=== PATIENT | male | born 1995 | race Caucasian/White ===

== ENCOUNTER 2017-02-02 14:05 | Inpatient (IN) | payer OTHER ==
[2017-02-02 17:55] VITALS: BMI 19.1
--- NOTE | 2017-02-02 19:01 | HP ---
Admission [facility] Chief Complaint: REHAB SERVICES Allergies/Adverse Reactions: Allergies Allergy/AdvReac Type Severity Reaction Status Date / Time fish derived Allergy Severe Rash Verified 02/02/17 18:27 shellfish derived Allergy Severe Rash Verified 02/02/17 18:27 No Known Drug Allergies Allergy Verified 02/02/17 18:27 CRAB Allergy Severe Rash Uncoded 02/02/17 18:27 SEAFOOD Allergy Severe Rash Uncoded 02/02/17 18:27 SHRIMPS Allergy Severe Rash Uncoded 02/02/17 18:27 History of Present Illness: 22 Y.O. MAN WITH A HISTORY OF HEROIN AND ALCOHOL DEPENDENCE IS HERE SEEKING REHAB SERVICES. HE COMPLETED DETOX AT [facility] ON 01/30/17. HE DOES NOT HAVE A SIGNIFICANT PERIOD OF SOBRIETY. Exam Limitations: No Limitations - Ebola screening Have you traveled outside of the country in the last 21 days: No Have you had contact with anyone from an Ebola affected area: No Have you been sick,other than usual withdrawal symptoms: No Do you have a fever: No - Review of Systems Constitutional: No Symptoms Reported EENT: reports: No Symptoms Reported Respiratory: reports: No Symptoms reported Cardiac: reports: No Symptoms Reported GI: reports: No Symptoms Reported : reports: No Symptoms Reported Musculoskeletal: reports: No Symptoms Reported Integumentary: reports: No Symptoms Reported Neuro: reports: No Symptoms reported Endocrine: reports: No Symptoms Reported Hematology: reports: No Symptoms Reported Psychiatric: reports: Orientated x3, other (BIPOLAR AND ADHD) Patient History - Patient Medical History Hx Anemia: No Hx Asthma: Yes Hx Chronic Obstructive Pulmonary Disease (COPD): No Hx Cardiac Disorders: No Hx Hypertension: No Hx Hypercholesterolemia: No Hx Pacemaker: No HX Cerebrovascular Accident: No Hx Seizures: No Hx Dementia: No Hx Diabetes: No Hx Gastrointestinal Disorders: No Hx Liver Disease: No Hx Genitourinary Disorders: No Hx Sexually Transmitted Disorders: No Hx Renal Disease (ESRD): No Hx Thyroid Disease: No Hx Human Immunodeficiency Virus (HIV): No Hx Hepatitis C: No Hx Depression: Yes Hx Suicide Attempt: No Hx Bipolar Disorder: Yes (AND ADHD ) Hx Schizophrenia: No - Patient Surgical History Past Surgical History: Yes Hx Neurologic Surgery: No Hx Cataract Extraction: No Hx Cardiac Surgery: No Hx Lung Surgery: No Hx Breast Surgery: No Hx Breast Biopsy: No Hx Abdominal Surgery: No Hx Appendectomy: No Hx Cholecystectomy: No Hx Genitourinary Surgery: No Hx Section: No Hx Orthopedic Surgery: Yes (RT [facility]KLE 2011) Anesthesia Reaction: No - PPD History Previous Implant?: Yes Documented Results: Negative w/o proof Date: 07/13/14 PPD to be Administered?: Yes - Reproductive History Patient is a Female of Child Bearing Age (11 -55 yrs old): No - Smoking Cessation Smoking history: Current every day smoker Have you smoked in the past 12 months: Yes Aproximately how many cigarettes per day: 25 Hx Chewing Tobacco Use: No Initiated information on smoking cessation: Yes 'Breaking Loose' booklet given: 02/02/17 - Substance & Tx. History Hx Alcohol Use: Yes Hx Substance Use: Yes Substance Use Type: Alcohol, Heroin, Marijuana Hx Substance Use Treatment: Yes (DETOX AT [facility] ON 01/30/2017; NO REHAB PREVIOUSLY) - Substances Abused Alcohol Frequency: 1-2 times per week Amount used: 2 CANS OF BEER Age of first use: 16 Date of Last Use: 02/01/17 Heroin Route: Inhalation Frequency: 3-6 times per week Amount used: 2 Age of first use: 18 Date of Last Use: 02/01/17 Marijuana/Hashish Route: Smoking Frequency: Daily Amount used: 25 Age of first use: 6 Date of Last Use: 02/01/17 Family Disease History - Family Disease History Family History: Denies Admission Physical Exam [facility] - Vital Signs Vital Signs: Vital Signs - 24 hr 02/02/17 17:51 Temperature 96.2 F L Pulse Rate 120 H Respiratory 20 Rate Blood Pressure 130/75 - Physical General Appearance: Yes: Anxious HEENTM: Yes: Hearing grossly Normal, Normal ENT Inspection, Normocephalic Respiratory: Yes: Chest Non-Tender, Lungs Clear, Normal Breath Sounds, No Respiratory Distress, No Accessory Muscle Use Neck: Yes: No masses,lesions,Nodules, Trachea in good position Breast: Yes: Breast Exam Deferred Cardiology: Yes: Regular Rhythm, Tachycardia Abdominal: Yes: Normal Bowel Sounds, Non Tender Genitourinary: Yes: Other (NO COMPLAITNS REPORTED) Back: Yes: Normal Inspection Musculoskeletal: Yes: Gait Steady Extremities: Yes: Normal Inspection, Normal Range of Motion, Non-Tender Neurological: Yes: psychologist personnel II-XII NML intact, Fully Oriented, Motor Strength 5/5, Normal Mood/Affect, Normal Response Integumentary: Yes: Normal Color, Dry, Warm Lymphatic: Yes: Within Normal Limits - Diagnostic (1) Alcohol dependence Current Visit: Yes Status: Chronic (2) Cannabis dependence Current Visit: Yes Status: Chronic (3) Opioid dependence with withdrawal Current Visit: Yes Status: Chronic Cleared for Admission [facility] - Detox or Rehab [facility] Level of Care: Observation Bed Claeared for Rehab Admission: Yes [facility] Breath Alcohol Content Breath Alcohol Content: 0.063 Urine Drug Screen - Results Drug Screen Negative: No Urine Drug Screen Results: THC-Marijuana, OPI-Opiates, BZO-Benzodiazepines, MTD- Methadone
[2017-02-02] MEDS ORDERED: P-EPHED 60MG/TRIPROLIDI 2.5MG TABLET PO PRN (19:08)
[2017-02-02] MEDS ORDERED: diphenhydrAMINE HCL 50 MG CAPSULE PO PRN (19:08)
[2017-02-02] MEDS ORDERED: ACETAMINOPHEN 325 MG TABLET (FP) PO PRN (19:08)
[2017-02-02] MEDS ORDERED: MAGNESIUM CITRATE 300 ML BOTTLE PO PRN (19:08)
[2017-02-02] MEDS ORDERED: MENTHOL/PHENOL 1 EACH UD MM PRN (19:08)
[2017-02-02] MEDS ORDERED: hydrOXYzine PAMOATE 50 MG CAPSULE (FP) PO PRN (19:08)
[2017-02-02] MEDS ORDERED: LOPERAMIDE HCL 2 MG CAPSULE PO PRN (19:08)
[2017-02-02] MEDS ORDERED: NICOTINE POLACRILEX 4 MG GUM BUC PRN (19:08)
[2017-02-02] MEDS ORDERED: guaiFENesin/D-METHORPHAN HB 10 ML UNIT-DOSE CUPS PO PRN (19:08)
[2017-02-02] MEDS ORDERED: MAG HYDROX/AL HYDROX/SIMETH 30 ML UNIT-DOSE CUP PO PRN (19:08)
[2017-02-02] MEDS ORDERED: MAGNESIUM HYDROX 2400MG/30ML ORAL SUSPENSION 30 ML CUP PO PRN (19:08)
[2017-02-02] MEDS ORDERED: IBUPROFEN 400 MG TABLET (FP) PO PRN (19:08)
[2017-02-02] MEDS: THIAMINE HCL 100 MG TABLET (FP) PO SCH (21:25)
[2017-02-02] MEDS ORDERED: TUBERCULIN PPD 5 TU/0.1ML VIAL ID ONE (22:23)
[2017-02-02 22:45] LABS: URINE APPEARANCE CLEAR; URINE BILIRUBIN NEGATIVE (NEGATIVE); URINE BLOOD NEGATIVE (NEGATIVE); URINE COLOR YELLOW; URINE GLUCOSE (UA) NEGATIVE (NEGATIVE); URINE KETONE NEGATIVE (NEGATIVE); URINE LEUK ESTERASE NEGATIVE (NEGATIVE); URINE NITRITE NEGATIVE (NEGATIVE); URINE PROTEIN NEGATIVE (NEGATIVE); URINE UROBILINOGEN NEGATIVE mg/dL (0.2-1.0)
--- NOTE | 2017-02-03 06:39 | HP ---
Psychiatrist Admission - Data Date of interview: 02/03/17 Admission source: [facility] detox completed on 01/30/17 Identifying data: This is the first [facility] admission for this 22 years old single male, unemployed on SSI, homeless Medical History: Significant for history of surgery on left ankle in 2010. Somes 25 cigarettes daily Psychiatric History: Reports being diagnosed with ADHD as a child and treated with medication including Concerta. Later on he was diagnosed with Bipolar Disorder. Reports 4 previous psychiatric admissions to [facility] x3 & recently in 2016 @ [facility]. Reports receiving OPD care @ [facility] and he is prescribed Seroquel 400 mg po HS and Depakote 250 mg po BID. Just saw a psychiatrist at [facility] where he comleted inpt detox on 01/31/16. Claims that he was continued on his medications. At present reports doing well but sleeps poorly Physical/Sexual Abuse/Trauma History: Denies history of emotional, physical or sexual abuse swell as DV relationship. No service Additional Comment: Reportshistory of 8 previous midemeanor arrests(Trespassing , [place] walking)Denies being on probation at [facility] Vital Signs: Vital Signs - 24 hr 02/02/17 17:51 Temperature 96.2 F L Pulse Rate 120 H Respiratory 20 Rate Blood Pressure 130/75 Allergies/Adverse Reactions: Allergies Allergy/AdvReac Type Severity Reaction Status Date / Time fish derived Allergy Severe Rash Verified 02/02/17 18:27 shellfish derived Allergy Severe Rash Verified 02/02/17 18:27 No Known Drug Allergies Allergy Verified 02/02/17 18:27 CRAB Allergy Severe Rash Uncoded 02/02/17 18:27 SEAFOOD Allergy Severe Rash Uncoded 02/02/17 18:27 SHRIMPS Allergy Severe Rash Uncoded 02/02/17 18:27 Date of last physical exam: 02/02/17 Concur with the findings of this exam: Yes - Substance Abuse/Tx History Hx Alcohol Use: Yes Hx Substance Use: Yes Substance Use Type: Alcohol (Started drinking alcohol at age 16, consumes 2 cans 1-2 times weekly. Last drink on 02/01/17), Heroin (Started using heroin at age 18, consumes 2 bags 3-6 times weekly. Last used on 02/01/17), Marijuana ( Started smoking marijuana at age 6, consumes 25 daily. Lasr smoked on 02/01/17) Hx Substance Use Treatment: Yes (detox @ [facility], [facility] [place], [facility]: [facility] - Admission Criteria Previous failed treatment: Yes Poor recovery environment: Yes Comorbidities: Yes Lacks judgement: Yes Mental Status Exam - Mental Status Exam Alert and Oriented to: Time, Place, Person Cognitive Function: Fair Patient Appearance: Well Groomed Mood: Hopeful, Euthymic Affect: Appropriate Patient Behavior: Cooperative Speech Pattern: Clear Voice Loudness: Normal Thought Process: Intact, Goal Oriented Thought Disorder: Not Present Hallucinations: Denies Suicidal Ideation: Denies Homicidal Ideation: Denies Insight/Judgement: Fair Sleep: Poorly Appetite: Fair Muscle strength/Tone: Normal Gait/Station: Normal Psychiatric Findings - Problem List ([place] 1, 2,3) (1) Alcohol dependence Current Visit: Yes Status: Chronic (2) Opioid dependence Current Visit: Yes Status: Acute (3) Cannabis dependence Current Visit: Yes Status: Chronic (4) Nicotine dependence Current Visit: Yes Status: Acute (5) ADHD (attention deficit hyperactivity disorder) Current Visit: Yes Status: Acute (6) Bipolar disorder Current Visit: Yes Status: Acute - Initial Treatment Plan Initial Treatment Plan: 1) Continue Seroquel 400 mg po HS and Depakote 250 mg po BID. 2) Monitor progress
[2017-02-03] MEDS: PRENATAL VITAMINS W/ FOLIC ACID TABLET (FP) PO SCH (10:19)
[2017-02-03] MEDS: NICOTINE 21 MG/24 HOURS TOPICAL PATCH TD SCH (10:19)
[2017-02-03 12:36] LABS: MCH 28.8 pg (25.7-33.7); MCHC 33.2 g/dl (32.0-35.9); MEAN CELL VOLUME 86.8 fl (80-96); PLATELET COUNT 245 K/MM3 (134-434); RDW 14.8 % (11.9-15.9); WHITE BLOOD COUNT 11.3 K/mm3 (4.0-10.0)
[2017-02-03] MEDS: DIVALPROEX SODIUM 250 MG TABLET E.C. (FP) PO SCH ×2 (12:53→21:05)
[2017-02-03 13:01] LABS: ALBUMIN 3.8 g/dl (3.4-5.0); ALK PHOS 87 U/L (45-117); ANION GAP 10 (8-16); BILIRUBIN,TOTAL 0.5 mg/dL (0.2-1.0); CALCIUM 9.2 mg/dL (8.5-10.1); CO2 30 mmol/L (21-32); CREATININE 0.7 mg/dL (0.7-1.3); GLUCOSE,RANDOM 92 mg/dL (74-106); SGOT/AST 24 U/L (15-37); SGPT/ALT 48 U/L (12-78); TOT PROT 6.9 g/dl (6.4-8.2)
[2017-02-03 14:14] LABS: HIV 1 & 2 AB NEGATIVE; HIV 1 AGp24 NEGATIVE
[2017-02-03] MEDS: THIAMINE HCL 100 MG TABLET (FP) PO SCH (21:05)
[2017-02-03] MEDS: QUEtiapine FUMARATE 400 MG TABLET PO SCH (21:05)
[2017-02-04] MEDS: NICOTINE 21 MG/24 HOURS TOPICAL PATCH TD SCH (10:31)
[2017-02-04] MEDS: DIVALPROEX SODIUM 250 MG TABLET E.C. (FP) PO SCH ×2 (10:31→21:11)
[2017-02-04] MEDS: PRENATAL VITAMINS W/ FOLIC ACID TABLET (FP) PO SCH (10:31)
--- NOTE | 2017-02-04 12:28 | PN ---
S Progress Note Note: pain in right ankle,s/p surgery 7 years ago,scar right ankle,no erythema, ambulation with mild pain no deformity treatment x ray of right ankle motrin 400 mgs po q6 hrs prn forpain ambulation with cane support cbc wbc 11,300 probably due to dehydration encourage oral fluid repeat cbc in am
--- NOTE | 2017-02-04 14:51 | EKG ---
Test Reason : Blood Pressure : / mmHG Vent. Rate : 101 BPM Atrial Rate : 101 BPM P-R Int : 152 ms QRS Dur : 072 ms QT Int : 318 ms P-R-T Axes : 007 091 044 degrees QTc Int : 412 ms SINUS TACHYCARDIA RIGHTWARD AXIS BORDERLINE ECG NO PREVIOUS ECGS AVAILABLE Confirmed by RENE JO MD ([id number]) on 02/04/2017 2:51:05 PM Referred By: Confirmed By:RENE JO MD
[2017-02-04] MEDS: QUEtiapine FUMARATE 400 MG TABLET PO SCH (21:11)
[2017-02-04] MEDS: THIAMINE HCL 100 MG TABLET (FP) PO SCH (21:11)
[2017-02-05 07:03] VITALS: BP 126/84; PULSE 84; TEMP 97.7
--- NOTE | 2017-02-05 11:29 | PN ---
Psychiatric Progress Note Vital Signs: Vital Signs Period Temp Pulse Resp BP Sys/[place] Pulse Ox Last 24 Hr 97.7 F 84 18-18 126/84 Date of Session: 02/05/17 Chief Complaint:: AMA Discharge Note HPI: Patient addressing Alcohol, Opoid and Cannabis Dependence comorbid with Nicotine Dependence, ADHD and Bipolar Disorder Current Medications: Active Medications Generic Name Dose Route Start Last Admin Trade Name Freq PRN Reason Stop Dose Admin Acetaminophen 650 mg 02/02/17 19:08 Tylenol - PO Q4H PRN PAIN Al Hydroxide/Mg Hydroxide 30 ml 02/02/17 19:08 Mylanta Oral Suspension - PO Q6H PRN DYSPEPSIA Diphenhydramine HCl 50 mg 02/02/17 19:08 02/02/17 21:24 Benadryl - PO 50 mg HSMR1 PRN Administration INSOMNIA Divalproex Sodium 250 mg 02/03/17 11:15 02/04/17 21:11 Depakote - PO 250 mg BID ARGELIA Administration Eucalyptus/Menthol/Phenol/Sorbitol 1 each 02/02/17 19:08 Cepastat Lozenge - MM Q4H PRN SORE THROAT Guaifenesin 10 ml 02/02/17 19:08 Robitussin Dm - PO Q6H PRN COUGH Hydroxyzine Pamoate 50 mg 02/02/17 19:08 Vistaril - PO Q4H PRN AGITATION Ibuprofen 400 mg 02/02/17 19:08 Motrin - PO Q6H PRN SEVERE PAIN Loperamide HCl 4 mg 02/02/17 19:08 Imodium - PO Q6H PRN DIARRHEA Magnesium Citrate 300 ml 02/02/17 19:08 Citroma - PO Q48H PRN CONSTIPATION Magnesium Hydroxide 30 ml 02/02/17 19:08 Milk Of Magnesia - PO DAILY PRN CONSTIPATION Nicotine 21 mg 02/03/17 10:00 02/04/17 10:31 Nicoderm Patch - TD 21 mg DAILY ARGELIA Administration Nicotine Polacrilex 4 mg 02/02/17 19:08 Nicorette Gum - BUC Q2H PRN NICOTINE REPLACEMENT RX Multivit/Folic Acid/Iron 1 tab 02/03/17 10:00 02/04/17 10:31 Vitamins ([facility]) - PO 1 tab DAILY ARGELIA Administration Pseudoephedrine/Triprolidine 1 combo 02/02/17 19:08 Actifed - PO TID PRN NASAL CONGESTION Quetiapine Fumarate 400 mg 02/03/17 22:00 02/04/17 21:11 Seroquel - PO 400 mg HS ARGELIA Administration Thiamine HCl 100 mg 02/02/17 22:00 02/04/17 21:11 Vitamin B1 - PO 100 mg HS ARGELIA Administration Current Side Effect: No Lab tests ordered: Yes Lab tests reviewed: Yes Provider note:: Patient has not completed this program. He wants to leave against medical advice because he misses his girlfriend and wants to be with her.He told financial underwriter:"I promised my mother that I'm not going to use." He is determined to leave despite encouragement to stay and complete this program. Scripts for his psychotropic medications are electronically transmitted to [facility] at [address] [place] [address]. He is stable for discharge against medical advice Total face to face time:: 25 Mental Status Exam - Mental Status Exam Alert and Oriented to: Time, Place, Person Patient Appearance: Well Groomed Mood: Hopeful, Euthymic Affect: Appropriate Patient Behavior: Cooperative Speech Pattern: Clear Voice Loudness: Normal Thought Process: Intact, Goal Oriented Thought Disorder: Not Present Hallucinations: Denies Suicidal Ideation: Denies Homicidal Ideation: Denies Insight/Judgement: Fair Sleep: Fair Appetite: Good Muscle strength/Tone: Normal Gait/Station: Normal Psychiatric Treatment Plan - Problem List (1) Alcohol dependence Current Visit: Yes (2) Opioid dependence Current Visit: Yes (3) Cannabis dependence Current Visit: Yes (4) Nicotine dependence Current Visit: Yes (5) ADHD (attention deficit hyperactivity disorder) Current Visit: Yes (6) Bipolar disorder Current Visit: Yes Initial treatment plan: Patient is leaving [employer]
== END 2017-02-05 12:00 | disposition left against medical advice (07) | DRG 770 ==
LOC: YASAS 14:05 → Y3W 18:29
PROVIDERS: ADMIT Psychiatry & Neurology Psychiatry; ATTEND Psychiatry & Neurology Psychiatry
PROC: HZ42ZZZ Group Counseling for Substance Abuse Treatment, Cognitive-Behavioral (ICD-10-PCS; principal; 2017-02-02)
DX: F11.20 Opioid dependence, uncomplicated (principal); F10.20 Alcohol dependence, uncomplicated; F12.20 Cannabis dependence, uncomplicated; F17.210 Nicotine dependence, cigarettes, uncomplicated; F90.9 Attention-deficit hyperactivity disorder, unspecified type; F31.9 Bipolar disorder, unspecified; M25.571 Pain in right ankle and joints of right foot; J45.909 Unspecified asthma, uncomplicated; R00.0 Tachycardia, unspecified; Z91.013 Allergy to seafood
CPT/HCPCS: 36415; 80053; 81003; 85027; 86593; 86803; 87389; 93005; 93010

== ENCOUNTER 2017-09-29 17:01 | Inpatient (IN) | payer OTHER ==
[2017-09-29 20:53] VITALS: BMI 19.5
[2017-09-29] MEDS ORDERED: MELATONIN 5 MG TABLETS PO PRN (22:00)
--- NOTE | 2017-09-29 22:07 | HP ---
COWS - Scale Resting Pulse: 1= PA 81-100 Sweatin=Flushed/Facial Moisture Restless Observation: 1= Difficult to Sit Still Pupil Size: 0= Normal to Room Light Bone or Joint Aches: 1= Mild Discomfort Runny Nose/ Eye Tearin= Runny Nose/Eyes GI Upset > 30mins: 1= Stomach Cramp Tremor Observation: 1= Tremor [place], Not Seen Yawning Observation: 0= None Anxiety or Irritability: 2=Irritable/Anxious Goose Flesh Skin: 0=Smooth Skin COWS Score: 11 CIWA Score - CIWA Score Nausea/Vomitin Muscle Tremors: 1-None Visible, but [place] Anxiety: 4-Mod. Anxious/Guarded Agitation: 3 Paroxysmal Sweats: 3 Orientation: 1-Uncertain about Date Tacttile Disturbances: 0-None Auditory Disturbances: 0-None Visual Disturbances: 0-None Headache: 0-None Present CIWA-Ar Total Score: 15 Admission ROS S - HPI Chief Complaint: SEEKING DETOX DUE TO FEELING " DOPE SICK" Allergies/Adverse Reactions: Allergies Allergy/AdvReac Type Severity Reaction Status Date / Time fish derived Allergy Severe Rash Verified 02/02/17 18:27 shellfish derived Allergy Severe Rash Verified 02/02/17 18:27 No Known Drug Allergies Allergy Verified 02/02/17 18:27 CRAB Allergy Severe Rash Uncoded 02/02/17 18:27 SEAFOOD Allergy Severe Rash Uncoded 02/02/17 18:27 SHRIMPS Allergy Severe Rash Uncoded 02/02/17 18:27 History of Present Illness: 22 Y.O. MALE WITH POLYSUBSTANCE ABUSE HERE FOR DETOX FOR HEROIN. CLIENT DENIES ALCOHOL USE. STATES IS "HAS BEEN YEARS". HE IS KNOWN TO THIS PROGRAM. LAST VISIT EARLIER THIS YEAR WHERE HE SIGNED OUT AMA. D/W CLIENT ABOUT COMPLIANCE AND ADHERENCE TO SUCEED IN ABSTINENCE. CLIENT VERBALIZED UNDERSTANDING AND STATES HE IS READY FOR TXMENT. SELF REFERRED. DENIES NAY SIGNIFICANT PERIOD OF CLEAN TIME. Exam Limitations: No Limitations - Ebola screening Have you traveled outside of the country in the last 21 days: No Have you had contact with anyone from an Ebola affected area: No Have you been sick,other than usual withdrawal symptoms: No Do you have a fever: No - Review of Systems Constitutional: Loss of Appetite, Night Sweats, Changes in sleep, Unintentional Wgt. Loss EENT: reports: Nose Congestion (RUNNY), Dental Problems (CARIES) Respiratory: reports: No Symptoms reported Cardiac: reports: No Symptoms Reported GI: reports: Poor Appetite, Poor Fluid Intake, Abdominal cramping : reports: No Symptoms Reported Musculoskeletal: reports: No Symptoms Reported Integumentary: reports: Other (RESOLVING BRUISE TO R SIDE OF FACE DUE TO PHYSICAL ATERCATION 1 WEEK AGO REPORTS F/U W/ ER VISIT) Neuro: reports: No Symptoms reported Endocrine: reports: No Symptoms Reported Hematology: reports: No Symptoms Reported Psychiatric: reports: Anxious, Depressed Other Systems: Reviewed and Negative Patient History - Patient Medical History Hx Anemia: No Hx Asthma: No Hx Chronic Obstructive Pulmonary Disease (COPD): No Hx Cancer: No Hx Cardiac Disorders: No Hx Congestive Heart Failure: No Hx Hypertension: No Hx Hypercholesterolemia: No Hx Pacemaker: No HX Cerebrovascular Accident: No Hx Seizures: No Hx Dementia: No Hx Diabetes: No Hx Gastrointestinal Disorders: No Hx Liver Disease: No Hx Genitourinary Disorders: No Hx Sexually Transmitted Disorders: No Hx Renal Disease (ESRD): No Hx Thyroid Disease: No Hx Human Immunodeficiency Virus (HIV): No Hx Hepatitis C: No Hx Depression: No Hx Suicide Attempt: No Hx Bipolar Disorder: Yes (AND ADHD ) Hx Schizophrenia: No Other Medical History: FEELS DEPRESED DENIES SI/HI - Patient Surgical History Past Surgical History: Yes Hx Neurologic Surgery: No Hx Cataract Extraction: No Hx Cardiac Surgery: No Hx Lung Surgery: No Hx Breast Surgery: No Hx Breast Biopsy: No Hx Abdominal Surgery: No Hx Appendectomy: No Hx Cholecystectomy: No Hx Genitourinary Surgery: No Hx Section: No Hx Orthopedic Surgery: Yes (RT [facility] 2011) Anesthesia Reaction: No - PPD History Previous Implant?: Yes Documented Results: Negative w/proof Implanted On Prior [facility] Admission?: Yes Date: 02/04/17 Results: 0MM PPD to be Administered?: No - Smoking Cessation Smoking history: Current every day smoker Have you smoked in the past 12 months: Yes Aproximately how many cigarettes per day: 20 Cigars Per Day: 0 Hx Chewing Tobacco Use: No Initiated information on smoking cessation: Yes 'Breaking Loose' booklet given: 09/29/17 - Substance & Tx. History Hx Alcohol Use: No Hx Substance Use: Yes Substance Use Type: Cocaine, Heroin, Marijuana, Tranquilizers (PCP) Hx Substance Use Treatment: Yes ([facility]) - Substances Abused HEROIN Route: Inhalation Frequency: Daily Amount used: 4 BUNDLES Age of first use: 18 Date of Last Use: 09/29/17 COCAINE Route: Inhalation Frequency: Daily Amount used: 4 BUNDLES Age of first use: 18 Date of Last Use: 09/29/17 THC Route: Smoking Frequency: Daily Amount used: 10 BAGS Age of first use: 6 Date of Last Use: 09/29/17 PCP Route: Smoking Frequency: 1-3 times last 30 days Amount used: 1 JOINT Age of first use: 20 Date of Last Use: 09/29/17 Family Disease History - Family Disease History Family History: Denies Admission Physical Exam [facility] - Vital Signs Vital Signs: Vital Signs - 24 hr 09/29/17 20:51 Temperature 97.9 F Pulse Rate 85 Respiratory 19 Rate Blood Pressure 144/74 - Physical General Appearance: Yes: Mild Distress, Thin, Irritable, Anxious HEENTM: Yes: EOMI, Normocephalic, Normal Voice, JOSE, Pharynx Normal, Other ( DIALTED PUPILS) Respiratory: Yes: Chest Non-Tender, Lungs Clear, Normal Breath Sounds, No Respiratory Distress, No Accessory Muscle Use Neck: Yes: No masses,lesions,Nodules, Trachea in good position Breast: Yes: Breast Exam Deferred Cardiology: Yes: Regular Rhythm, Regular Rate, S1, S2 Abdominal: Yes: Normal Bowel Sounds, Non Tender, Flat, Soft Genitourinary: Yes: Other (NO COMPLAINTS) Back: Yes: Normal Inspection Musculoskeletal: Yes: full range of Motion, Gait Steady Extremities: Yes: Normal Capillary Refill, Normal Range of Motion, Non-Tender, Tremors Neurological: Yes: Fully Oriented, Alert, Motor Strength 5/5 Integumentary: Yes: Warm (FLUSHED FACE), Other (RESOLVING ECCHYMOSIS GREENISH LIKE DISCOLORATION TO R SIDE OF FACE FROM A PHYSICAL ALTERCATION 1 WEEK AGO) Lymphatic: Yes: Within Normal Limits - Diagnostic (1) Cocaine dependence, uncomplicated Current Visit: Yes Status: Chronic (2) PCP (phencyclidine) abuse Current Visit: Yes Status: Chronic (3) Nicotine dependence Current Visit: No Status: Chronic Qualifiers: Nicotine product type: cigarettes Substance use status: uncomplicated Qualified Code(s): F17.210 - Nicotine dependence, cigarettes, uncomplicated (4) Right ankle pain Current Visit: Yes Status: Chronic Qualifiers: Chronicity: chronic Qualified Code(s): M25.571 - Pain in right ankle and joints of right foot; G89.29 - Other chronic pain; G89.29 - Other chronic pain (5) Cannabis dependence Current Visit: Yes Status: Chronic (6) Opioid dependence with withdrawal Current Visit: Yes Status: Chronic Cleared for Admission [facility] - Detox or Rehab [facility] Level of Care: Medically Managed Detox Regimen/Protocol: Methadone Claeared for Rehab Admission: No S Breath Alcohol Content Breath Alcohol Content: 0 Urine Drug Screen - Results Drug Screen Negative: No Urine Drug Screen Results: THC-Marijuana, SHREYAS-Cocaine, OPI-Opiates, PCP- Phencyclidine
[2017-09-29] MEDS ORDERED: LOPERAMIDE HCL 2 MG CAPSULE PO PRN (22:15)
[2017-09-29] MEDS ORDERED: guaiFENesin/D-METHORPHAN HB 10 ML UNIT-DOSE CUPS PO PRN (22:15)
[2017-09-29] MEDS ORDERED: ACETAMINOPHEN 325 MG TABLET (FP) PO PRN (22:15)
[2017-09-29] MEDS ORDERED: METHADONE HCL 10 MG TABLET (FOR DETOX USE ONLY) PO ONE ×2 (22:15→23:00)
[2017-09-29] MEDS ORDERED: MAGNESIUM HYDROX 2400MG/30ML ORAL SUSPENSION 30 ML CUP PO PRN (22:15)
[2017-09-29] MEDS ORDERED: MAG HYDROX/AL HYDROX/SIMETH 30 ML UNIT-DOSE CUP PO PRN (22:15)
[2017-09-29] MEDS ORDERED: MAGNESIUM CITRATE 300 ML BOTTLE PO PRN (22:15)
[2017-09-29] MEDS ORDERED: P-EPHED 60MG/TRIPROLIDI 2.5MG TABLET PO PRN (22:15)
[2017-09-29] MEDS ORDERED: IBUPROFEN 400 MG TABLET (FP) PO PRN (22:15)
[2017-09-29] MEDS ORDERED: MENTHOL/PHENOL 1 EACH UD MM PRN (22:15)
--- NOTE | 2017-09-30 09:24 | CONSULT ---
[facility] Psychiatric Consult - Data Date of interview: 09/30/17 Admission source: [facility] Identifying data: This is 22 years old male with no psychiatric hospitalization history, single, father of one, living with brother, unemployed, on SSI, seking for detox reports withdrawal symptoms after abusing: PCP, Cocaine, Heroin and Nicotine Substance Abuse History: Urine Drug Screen Results: THC-Marijuana, SHREYAS-Cocaine, OPI-Opiates, PCP-Phencyclidine. - Smoking Cessation. Smoking history: Current every day smoker. Have you smoked in the past 12 months: Yes. Aproximately how many cigarettes per day: 20. Cigars Per Day: 0. Hx Chewing Tobacco Use: No. Initiated information on smoking cessation: Yes. 'Breaking Loose' booklet given: 09/29/17. - Substance & Tx. History. Hx Alcohol Use: No. Hx Substance Use: Yes. Substance Use Type: Cocaine, Heroin, Marijuana, Tranquilizers (PCP). Hx Substance Use Treatment: Yes ([facility] - Substances Abused. HEROIN. Route: Inhalation. Frequency: Daily. Amount used: 4 BUNDLES. Age of first use : 18. Date of Last Use: 09/29/17. COCAINE. Route: Inhalation. Frequency: Daily. Amount used: 4 BUNDLES. Age of first use: 18. Date of Last Use: . THC. Route: Smoking. Frequency: Daily. Amount used: 10 BAGS. Age of first use: 6. Date of Last Use: 09/29/17. PCP. Route: Smoking. Frequency : 1-3 times last 30 days. Amount used: 1 JOINT. Age of first use: 20. Date of Last Use: 09/29/17 Medical History: Weight loss history, Right Ankle injury. Psychiatric History: Patient reports history of anxiety and sdepression, denies suicidal, homicidal history, reports secere Insomnia, reports taking prior to admission: Seroquel 400mg po qhs. Félix haines warned oversedation after taking Seroquel 400mg po qhs during detox protoco,. patient insist on continue preadmission medications. As per computer there is a history of Bipolar disorder, Impulse control disorder as well Physical/Sexual Abuse/Trauma History: Denies Additional Comment: Urine Drug Screen Results: THC-Marijuana, SHREYAS-Cocaine, OPI- Opiates, PCP-Phencyclidine. Seroquel 400mg po qhs. Mental Status Exam - Mental Status Exam Alert and Oriented to: Person Cognitive Function: Fair Patient Appearance: Unkempt Mood: Sad Affect: Flat Patient Behavior: Cooperative Speech Pattern: Appropriate Voice Loudness: Mildly Soft/Quiet Thought Process: Circumstantial, Goal Oriented Thought Disorder: Being Controlled Hallucinations: Denies Suicidal Ideation: Denies Homicidal Ideation: Denies Insight/Judgement: Fair Sleep: Difficulty falling asleep Appetite: Weight loss Gait/Station: Normal Additional Comments: Seroquel 400mg po qhs. Psychiatric Findings - Problem List ([place] 1, 2,3) (1) Drug-induced mood disorder Current Visit: Yes Status: Acute (2) Cannabis dependence Current Visit: Yes Status: Chronic (3) Cocaine dependence, uncomplicated Current Visit: Yes Status: Chronic (4) Nicotine dependence Current Visit: Yes Status: Chronic Qualifiers: Nicotine product type: cigarettes Substance use status: uncomplicated Qualified Code(s): F17.210 - Nicotine dependence, cigarettes, uncomplicated (5) Opioid dependence with withdrawal Current Visit: Yes Status: Chronic (6) PCP (phencyclidine) abuse Current Visit: Yes Status: Chronic (7) Bipolar disorder Current Visit: No Status: Acute (8) Opioid dependence Current Visit: No Status: Acute (9) Alcohol dependence Current Visit: No Status: Chronic (10) Impulse control disorder Current Visit: No Status: Chronic - Initial Treatment Plan Initial Treatment Plan: Seroquel 400mg po qhs.
[2017-09-30] MEDS ORDERED: METHADONE HCL 10 MG TABLET (FOR DETOX USE ONLY) PO ONE (10:00)
[2017-09-30 10:13] LABS: HEMATOCRIT 43.5 % (35.4-49); HEMOGLOBIN 14.3 GM/dL (11.7-16.9); MCH 28.7 pg (25.7-33.7); MCHC 32.9 g/dl (32.0-35.9); MEAN CELL VOLUME 87.2 fl (80-96); MEAN PLT VOLUME 7.7 fl (7.5-11.1); PLATELET COUNT 326 K/MM3 (134-434); RBC 4.99 M/mm3 (4.00-5.60); RDW 14.6 % (11.9-15.9); WHITE BLOOD COUNT 6.5 K/mm3 (4.0-10.0)
[2017-09-30] MEDS: PRENATAL VITAMINS W/ FOLIC ACID TABLET (FP) PO SCH (10:21)
[2017-09-30] MEDS: diazePAM 5 MG TABLET PO PRN ×4 (10:22→22:23)
[2017-09-30] MEDS: NICOTINE 21 MG/24 HOURS TOPICAL PATCH TD SCH (10:22)
[2017-09-30 10:53] LABS: CHLORIDE 110 mmol/L (98-107); POTASSIUM 4.7 mmol/L (3.5-5.1); SODIUM 139 mmol/L (136-145)
--- NOTE | 2017-09-30 11:13 | PN ---
S COWS - Scale Resting Pulse: 0= [place] 80 or Below Sweatin= Chills/Flushing Restless Observation: 3= Extraneous Movement Pupil Size: 1= Pupils >than Normal Bone or Joint Aches: 2= Severe Diffuse Aches Runny Nose/ Eye Tearin= Runny Nose/Eyes GI Upset > 30mins: 2= Nausea/Diarrhea Tremor Observation of Outstretched Hands: 2= Slight Tremor Visible Yawning Observation: 2= >3x During Session Anxiety or Irritability: 2=Irritable/Anxious Goose Flesh Skin: 0=Smooth Skin COWS Score: 17 BHS Progress Note (SOAP) Subjective: ALERT,IRRITABLE,ANXIOUS,INTERRUPTED SLEEP,TREMOR,PAIN IN THE BODY AND BACK Objective: 09/30/17 11:11 Vital Signs Temperature 98.2 F 09/30/17 09:17 Pulse Rate 76 09/30/17 09:17 Respiratory Rate 18 09/30/17 09:17 Blood Pressure 99/58 09/30/17 09:17 O2 Sat by Pulse Oximetry (%) EKG NSR Laboratory Last Values WBC 6.5 K/mm3 (4.0-10.0) D 09/30/17 07:00 RBC 4.99 M/mm3 (4.00-5.60) 09/30/17 07:00 Hgb 14.3 GM/dL (11.7-16.9) 09/30/17 07:00 Hct 43.5 % (35.4-49) 09/30/17 07:00 MCV 87.2 fl (80-96) 09/30/17 07:00 MCH 28.7 pg (25.7-33.7) 09/30/17 07:00 MCHC 32.9 g/dl (32.0-35.9) 09/30/17 07:00 RDW 14.6 % (11.9-15.9) 09/30/17 07:00 Plt Count 326 K/MM3 (134-434) D 09/30/17 07:00 MPV 7.7 fl (7.5-11.1) D 09/30/17 07:00 Sodium 139 mmol/L (136-145) 09/30/17 07:00 Potassium 4.7 mmol/L (3.5-5.1) 09/30/17 07:00 Chloride 110 mmol/L (98-107) H 09/30/17 07:00 WITHDRAWAL SYMPTOM 09/30/17 11:12 LABS PENDING Assessment: 09/30/17 11:12 WITHDRAWAL SYMPTOM Plan: CONTINUE DETOX
[2017-09-30 11:42] LABS: ALBUMIN 3.8 g/dl (3.4-5.0); ALK PHOS 121 U/L (45-117); ANION GAP 1 (8-16); BILIRUBIN,TOTAL 0.2 mg/dL (0.2-1.0); BLOOD UREA NITROGEN 11 mg/dL (7-18); CALCIUM 9.1 mg/dL (8.5-10.1); CO2 28 mmol/L (21-32); CREATININE 0.8 mg/dL (0.7-1.3); GLUCOSE,RANDOM 85 mg/dL (74-106); SGOT/AST 28 U/L (15-37); SGPT/ALT 225 U/L (12-78); TOT PROT 7.3 g/dl (6.4-8.2)
--- NOTE | 2017-09-30 13:06 | EKG ---
Test Reason : Blood Pressure : / mmHG Vent. Rate : 079 BPM Atrial Rate : 079 BPM P-R Int : 162 ms QRS Dur : 082 ms QT Int : 360 ms P-R-T Axes : -01 096 048 degrees QTc Int : 412 ms NORMAL SINUS RHYTHM RIGHTWARD AXIS BORDERLINE ECG WHEN COMPARED WITH ECG OF 02-FEB-2017 20:33, NO SIGNIFICANT CHANGE WAS FOUND Confirmed by OLVIN CARR MD ([id number]) on 09/30/2017 1:06:08 PM Referred By: Confirmed By:OLVIN CARR MD
[2017-09-30 14:35] LABS: URINE APPEARANCE CLEAR; URINE BILIRUBIN NEGATIVE (<2.0 mg/dL); URINE BLOOD NEGATIVE (NEGATIVE); URINE COLOR STRAW; URINE GLUCOSE (UA) NEGATIVE (NEGATIVE); URINE KETONE NEGATIVE (NEGATIVE); URINE LEUK ESTERASE NEGATIVE (NEGATIVE); URINE NITRITE NEGATIVE (NEGATIVE); URINE PROTEIN NEGATIVE (NEGATIVE); URINE UROBILINOGEN NEGATIVE mg/dL (0.2-1.0)
[2017-09-30] MEDS: QUEtiapine FUMARATE 400 MG TABLET PO SCH (22:23)
[2017-09-30] MEDS: THIAMINE HCL 100 MG TABLET (FP) PO SCH (22:23)
[2017-10-01] MEDS: diazePAM 5 MG TABLET PO PRN ×3 (05:32→20:50)
[2017-10-01] MEDS ORDERED: METHADONE HCL 5 MG TABLET (FOR DETOX USE ONLY) PO ONE (10:00)
[2017-10-01] MEDS: PRENATAL VITAMINS W/ FOLIC ACID TABLET (FP) PO SCH (10:46)
[2017-10-01] MEDS: NICOTINE 21 MG/24 HOURS TOPICAL PATCH TD SCH (10:47)
--- NOTE | 2017-10-01 11:02 | PN ---
BHS COWS - Scale Resting Pulse: 0= [place] 80 or Below Sweatin= Chills/Flushing Restless Observation: 3= Extraneous Movement Pupil Size: 1= Pupils >than Normal Bone or Joint Aches: 2= Severe Diffuse Aches Runny Nose/ Eye Tearin= Runny Nose/Eyes GI Upset > 30mins: 2= Nausea/Diarrhea Tremor Observation of Outstretched Hands: 2= Slight Tremor Visible Yawning Observation: 1= 1-2x During Session Anxiety or Irritability: 2=Irritable/Anxious Goose Flesh Skin: 0=Smooth Skin COWS Score: 16 BHS Progress Note (SOAP) Subjective: ALERT,IRRITABLE,ANXIOUS,INTERRUPTED SLEEP,TREMOR PAIN IN THE BODY Objective: 10/01/17 10:58 Vital Signs Temperature 97.1 F L 10/01/17 10:20 Pulse Rate 75 10/01/17 10:20 Respiratory Rate 22 10/01/17 10:20 Blood Pressure 114/69 10/01/17 10:20 O2 Sat by Pulse Oximetry (%) Laboratory Last Values WBC 6.5 K/mm3 (4.0-10.0) D 09/30/17 07:00 RBC 4.99 M/mm3 (4.00-5.60) 09/30/17 07:00 Hgb 14.3 GM/dL (11.7-16.9) 09/30/17 07:00 Hct 43.5 % (35.4-49) 09/30/17 07:00 MCV 87.2 fl (80-96) 09/30/17 07:00 MCH 28.7 pg (25.7-33.7) 09/30/17 07:00 MCHC 32.9 g/dl (32.0-35.9) 09/30/17 07:00 RDW 14.6 % (11.9-15.9) 09/30/17 07:00 Plt Count 326 K/MM3 (134-434) D 09/30/17 07:00 MPV 7.7 fl (7.5-11.1) D 09/30/17 07:00 Sodium 139 mmol/L (136-145) 09/30/17 07:00 Potassium 4.7 mmol/L (3.5-5.1) 09/30/17 07:00 Chloride 110 mmol/L (98-107) H 09/30/17 07:00 Carbon Dioxide 28 mmol/L (21-32) 09/30/17 07:00 Anion Gap 1 (8-16) L 09/30/17 07:00 BUN 11 mg/dL (7-18) D 09/30/17 07:00 Creatinine 0.8 mg/dL (0.7-1.3) 09/30/17 07:00 Creat Clearance w eGFR > 60 (>60) 09/30/17 07:00 Random Glucose 85 mg/dL (74-106) 09/30/17 07:00 Calcium 9.1 mg/dL (8.5-10.1) 09/30/17 07:00 Total Bilirubin 0.2 mg/dL (0.2-1.0) D 09/30/17 07:00 AST 28 U/L (15-37) 09/30/17 07:00 ALT 225 U/L (12-78) H D 09/30/17 07:00 Alkaline Phosphatase 121 U/L (45-117) H D 09/30/17 07:00 Total Protein 7.3 g/dl (6.4-8.2) 09/30/17 07:00 Albumin 3.8 g/dl (3.4-5.0) 09/30/17 07:00 Urine Color Straw 09/30/17 12:30 Urine Appearance Clear 09/30/17 12:30 Urine pH 7.0 (5.0-8.0) 09/30/17 12:30 Ur Specific [place] 1.015 (1.001-1.035) 09/30/17 12:30 Urine Protein Negative (NEGATIVE) 09/30/17 12:30 Urine Glucose (UA) Negative (NEGATIVE) 09/30/17 12:30 Urine Ketones Negative (NEGATIVE) 09/30/17 12:30 Urine Blood Negative (NEGATIVE) 09/30/17 12:30 Urine Nitrite Negative (NEGATIVE) 09/30/17 12:30 Urine Bilirubin Negative (<2.0 mg/dL) 09/30/17 12:30 Urine Urobilinogen Negative mg/dL (0.2-1.0) 09/30/17 12:30 Ur Leukocyte Esterase Negative (NEGATIVE) 09/30/17 12:30 HIV 1&2 Antibody Screen Negative 09/30/17 07:00 HIV P24 Antigen Negative 09/30/17 07:00 Assessment: 10/01/17 11:01 WITHDRAWAL SYMPTOM Plan: CONTINUE DETOX,D/C TYLENOL DUE TO ELEVATION OF ALT,REPEAT ALT,INR IN AM
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
[2017-10-01] MEDS: THIAMINE HCL 100 MG TABLET (FP) PO SCH (22:18)
[2017-10-01] MEDS: QUEtiapine FUMARATE 400 MG TABLET PO SCH (22:18)
[2017-10-02] MEDS ORDERED: METHADONE HCL 5 MG TABLET (FOR DETOX USE ONLY) PO ONE (10:00)
[2017-10-02] MEDS: PRENATAL VITAMINS W/ FOLIC ACID TABLET (FP) PO SCH (10:35)
[2017-10-02] MEDS: diazePAM 5 MG TABLET PO PRN (10:36)
[2017-10-02] MEDS: NICOTINE 21 MG/24 HOURS TOPICAL PATCH TD SCH (10:38)
[2017-10-02 10:53] LABS: INR 0.96 (0.82-1.09); PROTHROMBIN TIME (PATIENT) 10.8 SEC (9.98-11.88)
--- NOTE | 2017-10-02 10:57 | PN ---
S Progress Note (SOAP) Subjective: ALERT,ANXIOUS,INTERRUPTED SLEEP,TREMOR,PAIN IN THE BODY Objective: 10/02/17 10:56 Vital Signs Temperature 97.7 F 10/02/17 10:25 Pulse Rate 99 H 10/02/17 10:25 Respiratory Rate 18 10/02/17 10:25 Blood Pressure 114/73 10/02/17 10:25 O2 Sat by Pulse Oximetry (%) Assessment: 10/02/17 10:58 WITHDRAWAL SYMPTOM Plan: CONTINUE DETOX,PSYCHIATRIC EVALUATION
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
[2017-10-02] MEDS: hydrOXYzine PAMOATE 50 MG CAPSULE (FP) PO PRN (13:08)
[2017-10-02] MEDS: QUEtiapine FUMARATE 400 MG TABLET PO SCH (22:40)
[2017-10-02] MEDS: THIAMINE HCL 100 MG TABLET (FP) PO SCH (22:40)
[2017-10-03] MEDS ORDERED: METHADONE HCL 10 MG TABLET (FOR DETOX USE ONLY) PO ONE (10:00)
[2017-10-03] MEDS: PRENATAL VITAMINS W/ FOLIC ACID TABLET (FP) PO SCH (11:09)
[2017-10-03] MEDS: NICOTINE 21 MG/24 HOURS TOPICAL PATCH TD SCH (11:10)
--- NOTE | 2017-10-03 12:39 | PN ---
[facility] Progress Note (SOAP) Subjective: Irritable, sleep interruption, anxious Objective: 10/03/17 12:38 Vital Signs - 8 hr 10/03/17 10/03/17 10/03/17 06:00 06:30 10:00 Temperature 96.1 F L 98.2 F Pulse Rate 90 113 H Respiratory 16 18 20 Rate Blood Pressure 111/55 117/66 Laboratory Last Values WBC 6.5 K/mm3 (4.0-10.0) D 09/30/17 07:00 RBC 4.99 M/mm3 (4.00-5.60) 09/30/17 07:00 Hgb 14.3 GM/dL (11.7-16.9) 09/30/17 07:00 Hct 43.5 % (35.4-49) 09/30/17 07:00 MCV 87.2 fl (80-96) 09/30/17 07:00 MCH 28.7 pg (25.7-33.7) 09/30/17 07:00 MCHC 32.9 g/dl (32.0-35.9) 09/30/17 07:00 RDW 14.6 % (11.9-15.9) 09/30/17 07:00 Plt Count 326 K/MM3 (134-434) D 09/30/17 07:00 MPV 7.7 fl (7.5-11.1) D 09/30/17 07:00 PT with INR 10.80 SEC (9.98-11.88) 10/02/17 07:00 INR 0.96 (0.82-1.09) 10/02/17 07:00 Sodium 139 mmol/L (136-145) 09/30/17 07:00 Potassium 4.7 mmol/L (3.5-5.1) 09/30/17 07:00 Chloride 110 mmol/L (98-107) H 09/30/17 07:00 Carbon Dioxide 28 mmol/L (21-32) 09/30/17 07:00 Anion Gap 1 (8-16) L 09/30/17 07:00 BUN 11 mg/dL (7-18) D 09/30/17 07:00 Creatinine 0.8 mg/dL (0.7-1.3) 09/30/17 07:00 Creat Clearance w eGFR > 60 (>60) 09/30/17 07:00 Random Glucose 85 mg/dL (74-106) 09/30/17 07:00 Calcium 9.1 mg/dL (8.5-10.1) 09/30/17 07:00 Total Bilirubin 0.2 mg/dL (0.2-1.0) D 09/30/17 07:00 AST 28 U/L (15-37) 09/30/17 07:00 ALT 150 U/L (12-78) H D 10/02/17 07:00 Alkaline Phosphatase 121 U/L (45-117) H D 09/30/17 07:00 Total Protein 7.3 g/dl (6.4-8.2) 09/30/17 07:00 Albumin 3.8 g/dl (3.4-5.0) 09/30/17 07:00 Urine Color Straw 09/30/17 12:30 Urine Appearance Clear 09/30/17 12:30 Urine pH 7.0 (5.0-8.0) 09/30/17 12:30 Ur Specific [place] 1.015 (1.001-1.035) 09/30/17 12:30 Urine Protein Negative (NEGATIVE) 09/30/17 12:30 Urine Glucose (UA) Negative (NEGATIVE) 09/30/17 12:30 Urine Ketones Negative (NEGATIVE) 09/30/17 12:30 Urine Blood Negative (NEGATIVE) 09/30/17 12:30 Urine Nitrite Negative (NEGATIVE) 09/30/17 12:30 Urine Bilirubin Negative (<2.0 mg/dL) 09/30/17 12:30 Urine Urobilinogen Negative mg/dL (0.2-1.0) 09/30/17 12:30 Ur Leukocyte Esterase Negative (NEGATIVE) 09/30/17 12:30 RPR Titer Nonreactive (NONREACTIVE) 09/30/17 07:00 HIV 1&2 Antibody Screen Negative 09/30/17 07:00 HIV P24 Antigen Negative 09/30/17 07:00 Labs noted Assessment: 10/03/17 12:38 Withdrawal sx Anxiety d/o Plan: Continue detox Continue Vistaril PRN
[2017-10-03] MEDS: hydrOXYzine PAMOATE 50 MG CAPSULE (FP) PO PRN ×2 (15:27→19:49)
[2017-10-03] MEDS: NICOTINE POLACRILEX 2 MG GUM BC PRN (17:47)
[2017-10-03] MEDS: THIAMINE HCL 100 MG TABLET (FP) PO SCH (22:36)
[2017-10-03] MEDS: QUEtiapine FUMARATE 400 MG TABLET PO SCH (22:36)
[2017-10-04] MEDS ORDERED: METHADONE HCL 5 MG TABLET (FOR DETOX USE ONLY) PO ONE (06:00)
[2017-10-04] MEDS: NICOTINE POLACRILEX 2 MG GUM BC PRN (06:07)
[2017-10-04 06:35] VITALS: TEMP 97.9
[2017-10-04] MEDS: NICOTINE 21 MG/24 HOURS TOPICAL PATCH TD SCH (09:15)
[2017-10-04] MEDS: PRENATAL VITAMINS W/ FOLIC ACID TABLET (FP) PO SCH (09:15)
--- NOTE | 2017-10-04 09:23 | DS ---
[facility] Detox Discharge Summary Admission Date: 09/29/17 Discharge Date: 10/04/17 - History Present History: Alcohol Dependence, Opioid Dependence Additional Comments: patient admitted for alcohol and opiate detox completed detox regimen tolerated well patient is alert oriented x 3 no acute distress patient wants to go [facility] rehab - Physical Exam Results Vital Signs: Vital Signs Temperature 97.9 F 10/04/17 06:00 Pulse Rate 90 10/04/17 06:00 Respiratory Rate 16 10/04/17 06:00 Blood Pressure 101/57 10/04/17 06:00 O2 Sat by Pulse Oximetry (%) Pertinent Admission Physical Exam Findings: withdrawal sx Vital Signs Temperature 97.9 F 10/04/17 06:00 Pulse Rate 90 10/04/17 06:00 Respiratory Rate 16 10/04/17 06:00 Blood Pressure 101/57 10/04/17 06:00 O2 Sat by Pulse Oximetry (%) Laboratory Last Values WBC 6.5 K/mm3 (4.0-10.0) D 09/30/17 07:00 RBC 4.99 M/mm3 (4.00-5.60) 09/30/17 07:00 Hgb 14.3 GM/dL (11.7-16.9) 09/30/17 07:00 Hct 43.5 % (35.4-49) 09/30/17 07:00 MCV 87.2 fl (80-96) 09/30/17 07:00 MCH 28.7 pg (25.7-33.7) 09/30/17 07:00 MCHC 32.9 g/dl (32.0-35.9) 09/30/17 07:00 RDW 14.6 % (11.9-15.9) 09/30/17 07:00 Plt Count 326 K/MM3 (134-434) D 09/30/17 07:00 MPV 7.7 fl (7.5-11.1) D 09/30/17 07:00 PT with INR 10.80 SEC (9.98-11.88) 10/02/17 07:00 INR 0.96 (0.82-1.09) 10/02/17 07:00 Sodium 139 mmol/L (136-145) 09/30/17 07:00 Potassium 4.7 mmol/L (3.5-5.1) 09/30/17 07:00 Chloride 110 mmol/L (98-107) H 09/30/17 07:00 Carbon Dioxide 28 mmol/L (21-32) 09/30/17 07:00 Anion Gap 1 (8-16) L 09/30/17 07:00 BUN 11 mg/dL (7-18) D 09/30/17 07:00 Creatinine 0.8 mg/dL (0.7-1.3) 09/30/17 07:00 Creat Clearance w eGFR > 60 (>60) 09/30/17 07:00 Random Glucose 85 mg/dL (74-106) 09/30/17 07:00 Calcium 9.1 mg/dL (8.5-10.1) 09/30/17 07:00 Total Bilirubin 0.2 mg/dL (0.2-1.0) D 09/30/17 07:00 AST 28 U/L (15-37) 09/30/17 07:00 ALT 150 U/L (12-78) H D 10/02/17 07:00 Alkaline Phosphatase 121 U/L (45-117) H D 09/30/17 07:00 Total Protein 7.3 g/dl (6.4-8.2) 09/30/17 07:00 Albumin 3.8 g/dl (3.4-5.0) 09/30/17 07:00 Urine Color Straw 09/30/17 12:30 Urine Appearance Clear 09/30/17 12:30 Urine pH 7.0 (5.0-8.0) 09/30/17 12:30 Ur Specific [place] 1.015 (1.001-1.035) 09/30/17 12:30 Urine Protein Negative (NEGATIVE) 09/30/17 12:30 Urine Glucose (UA) Negative (NEGATIVE) 09/30/17 12:30 Urine Ketones Negative (NEGATIVE) 09/30/17 12:30 Urine Blood Negative (NEGATIVE) 09/30/17 12:30 Urine Nitrite Negative (NEGATIVE) 09/30/17 12:30 Urine Bilirubin Negative (<2.0 mg/dL) 09/30/17 12:30 Urine Urobilinogen Negative mg/dL (0.2-1.0) 09/30/17 12:30 Ur Leukocyte Esterase Negative (NEGATIVE) 09/30/17 12:30 RPR Titer Nonreactive (NONREACTIVE) 09/30/17 07:00 HIV 1&2 Antibody Screen Negative 09/30/17 07:00 HIV P24 Antigen Negative 09/30/17 07:00 lab noted - Treatment Hospital Course: Detox Protocol Followed, Detoxed Safely, Responded well, Discharged Condition Good, Rehab Referral Accepted [facility] - Medication Discharge Medications: Ambulatory Orders Quetiapine Fumarate [Seroquel -] 400 mg PO HS #30 tablet 09/30/17 - Diagnosis (1) Alcohol dependence with uncomplicated withdrawal Current Visit: Yes Status: Acute (2) Nicotine dependence Current Visit: Yes Status: Acute Qualifiers: Nicotine product type: cigarettes Substance use status: in withdrawal Qualified Code(s): F17.213 - Nicotine dependence, cigarettes, with withdrawal (3) Opioid dependence with withdrawal Current Visit: Yes Status: Acute - AMA Did Patient Leave Against Medical Advice: No
[2017-10-04 10:25] VITALS: BP 106/65; PULSE 83
== END 2017-10-04 09:16 | disposition home or self-care (01) | DRG 773 ==
LOC: YASAS 17:01 → Y6N 21:20
PROVIDERS: ADMIT Internal Medicine; ATTEND Internal Medicine
PROC: HZ2ZZZZ Detoxification Services for Substance Abuse Treatment (ICD-10-PCS; principal; 2017-09-29)
DX: F11.23 Opioid dependence with withdrawal (principal); F10.230 Alcohol dependence with withdrawal, uncomplicated; F14.20 Cocaine dependence, uncomplicated; F12.20 Cannabis dependence, uncomplicated; F16.10 Hallucinogen abuse, uncomplicated; F17.213 Nicotine dependence, cigarettes, with withdrawal; F19.24 Other psychoactive substance dependence with psychoactive substance-induced mood disorder; F90.9 Attention-deficit hyperactivity disorder, unspecified type; F63.89 Other impulse disorders
CPT/HCPCS: 36415; 80053; 81003; 84460; 85027; 85610; 86593; 87389; 93005; 93010

== ENCOUNTER 2017-12-10 13:27 | Inpatient (IN) | payer OTHER ==
[2017-12-10 14:41] VITALS: BMI 19.2
--- NOTE | 2017-12-10 17:06 | HP ---
Admission [facility] Chief Complaint: I am mandated by court to come in for rehab. Allergies/Adverse Reactions: Allergies Allergy/AdvReac Type Severity Reaction Status Date / Time fish derived Allergy Severe Rash Verified 12/10/17 16:00 shellfish derived Allergy Severe Rash Verified 12/10/17 16:00 No Known Drug Allergies Allergy Verified 12/10/17 16:00 CRAB Allergy Severe Rash Uncoded 12/10/17 16:00 SEAFOOD Allergy Severe Rash Uncoded 12/10/17 16:00 History of Present Illness: Pt is a 22yr old male with a history of heroin, cannabis, cocaine dependence who was at [facility] for detox d/c 12/06/17. Pt is here now for rehab for further treatment. Exam Limitations: No Limitations - Ebola screening Have you traveled outside of the country in the last 21 days: No Have you had contact with anyone from an Ebola affected area: No Have you been sick,other than usual withdrawal symptoms: No Do you have a fever: No - Review of Systems Constitutional: Loss of Appetite, Changes in sleep, Unintentional Wgt. Loss EENT: reports: No Symptoms Reported Respiratory: reports: No Symptoms reported Cardiac: reports: No Symptoms Reported GI: reports: Poor Appetite, Poor Fluid Intake : reports: No Symptoms Reported Musculoskeletal: reports: No Symptoms Reported Integumentary: reports: No Symptoms Reported, Sweating Neuro: reports: Headache, Tremors Endocrine: reports: Excessive Sweating, Flushing, Intolerance to Cold, Intolerance to Heat Hematology: reports: No Symptoms Reported Psychiatric: reports: Judgement Intact, Mood/Affect Appropiate, Orientated x3, Agitated, Anxious Other Systems: Reviewed and Negative Patient History - Patient Medical History Hx Anemia: No Hx Asthma: No Hx Chronic Obstructive Pulmonary Disease (COPD): No Hx Cancer: No Hx Cardiac Disorders: No Hx Congestive Heart Failure: No Hx Hypertension: No Hx Hypercholesterolemia: No Hx Pacemaker: No HX Cerebrovascular Accident: No Hx Seizures: No Hx Dementia: No Hx Diabetes: No Hx Gastrointestinal Disorders: No Hx Liver Disease: No Hx Genitourinary Disorders: No Hx Sexually Transmitted Disorders: No Hx Renal Disease (ESRD): No Hx Thyroid Disease: No Hx Human Immunodeficiency Virus (HIV): No Hx Hepatitis C: No Hx Depression: Yes Hx Suicide Attempt: No (denies) Hx Bipolar Disorder: Yes (AND ADHD ) Hx Schizophrenia: No - Patient Surgical History Past Surgical History: Yes Hx Neurologic Surgery: No Hx Cataract Extraction: No Hx Cardiac Surgery: No Hx Lung Surgery: No Hx Breast Surgery: No Hx Breast Biopsy: No Hx Abdominal Surgery: No Hx Appendectomy: No Hx Cholecystectomy: No Hx Genitourinary Surgery: No Hx Section: No Hx Orthopedic Surgery: Yes (RT ANKLE 2010) Anesthesia Reaction: No - PPD History Previous Implant?: Yes Date: 02/04/17 Results: 0MM PPD to be Administered?: No - Reproductive History Patient is a Female of Child Bearing Age (11 -55 yrs old): No - Smoking Cessation Smoking history: Current every day smoker Have you smoked in the past 12 months: Yes Aproximately how many cigarettes per day: 20 Cigars Per Day: 0 Hx Chewing Tobacco Use: No Initiated information on smoking cessation: Yes 'Breaking Loose' booklet given: 12/10/17 - Substance & Tx. History Hx Alcohol Use: Yes Hx Substance Use: Yes Hx Substance Use Treatment: Yes ([facility] 12/06/2017) - Substances Abused Heroin Route: Inhalation Frequency: Daily Amount used: 5 bags Age of first use: 20 Date of Last Use: 12/10/17 Cocaine Route: Inhalation Frequency: Daily Amount used: 2 bags Age of first use: 20 Date of Last Use: 12/10/17 Family Disease History - Family Disease History Family History: Denies Admission Physical Exam [facility] - Vital Signs Vital Signs: Vital Signs - 24 hr 12/10/17 14:37 Temperature 98.7 F Pulse Rate 93 H Respiratory 18 Rate Blood Pressure 98/57 - Physical General Appearance: Yes: Appropriately Dressed, Mild Distress, Thin, Anxious HEENTM: Yes: Within Normal Limits Respiratory: Yes: Lungs Clear, Normal Breath Sounds, No Respiratory Distress Neck: Yes: No masses,lesions,Nodules Breast: Yes: Within Normal Limits Cardiology: Yes: Regular Rhythm, Regular Rate, S1, S2 Abdominal: Yes: Normal Bowel Sounds Genitourinary: Yes: Within Normal Limits Back: Yes: Normal Inspection Musculoskeletal: Yes: full range of Motion Extremities: Yes: Normal Capillary Refill, Normal Inspection, Tremors Neurological: Yes: Fully Oriented, Alert, Normal Response Integumentary: Yes: Normal Color, Diaphoresis Lymphatic: Yes: Within Normal Limits - Diagnostic (1) ADHD (attention deficit hyperactivity disorder) Current Visit: No Status: Acute (2) Bipolar disorder Current Visit: No Status: Acute (3) Nicotine dependence Current Visit: No Status: Acute Qualifiers: (4) Opioid dependence with withdrawal Current Visit: Yes Status: Chronic (5) Cannabis dependence Current Visit: Yes Status: Chronic (6) Cocaine dependence, uncomplicated Current Visit: Yes Status: Chronic Cleared for Admission [facility] - Detox or Rehab [facility] Level of Care: Medically Managed Claeared for Rehab Admission: Yes [facility] Breath Alcohol Content Breath Alcohol Content: 0 Urine Drug Screen - Results Drug Screen Negative: No Urine Drug Screen Results: THC-Marijuana, SHREYAS-Cocaine, OPI-Opiates, BZO- Benzodiazepines, MTD-Methadone Inpatient Rehab Admission - Initial Determination Are CD services needed?: No Free of communicable disease: No Not in need of hospitalization: No - Rehab Admission Criteria Previous failed treatment: Yes Poor recovery environment: Yes
[2017-12-10] MEDS ORDERED: NICOTINE POLACRILEX 4 MG GUM BC PRN (17:14)
[2017-12-10] MEDS ORDERED: MAG HYDROX/AL HYDROX/SIMETH 30 ML UNIT-DOSE CUP PO PRN (17:14)
[2017-12-10] MEDS ORDERED: IBUPROFEN 400 MG TABLET (FP) PO PRN (17:14)
[2017-12-10] MEDS ORDERED: ACETAMINOPHEN 325 MG TABLET (FP) PO PRN (17:14)
[2017-12-10] MEDS ORDERED: MAGNESIUM HYDROX 2400MG/30ML ORAL SUSPENSION 30 ML CUP PO PRN (17:14)
[2017-12-10] MEDS ORDERED: P-EPHED 60MG/TRIPROLIDI 2.5MG TABLET PO PRN (17:14)
[2017-12-10] MEDS ORDERED: LOPERAMIDE HCL 2 MG CAPSULE PO PRN (17:14)
[2017-12-10] MEDS ORDERED: MENTHOL/PHENOL 1 EACH UD MM PRN (17:14)
[2017-12-10] MEDS ORDERED: MAGNESIUM CITRATE 300 ML BOTTLE PO PRN (17:14)
[2017-12-10] MEDS ORDERED: guaiFENesin/D-METHORPHAN HB 10 ML UNIT-DOSE CUPS PO PRN (17:14)
[2017-12-10] MEDS ORDERED: hydrOXYzine PAMOATE 50 MG CAPSULE (FP) PO PRN (17:14)
[2017-12-10] MEDS ORDERED: MELATONIN 5 MG TABLETS PO PRN (22:00)
[2017-12-10] MEDS: THIAMINE HCL 100 MG TABLET (FP) PO SCH (23:05)
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
[2017-12-11 08:18] LABS: URINE APPEARANCE TURBID; URINE BILIRUBIN NEGATIVE (<2.0 mg/dL); URINE COLOR YELLOW; URINE GLUCOSE (UA) NEGATIVE (NEGATIVE); URINE KETONE NEGATIVE (NEGATIVE); URINE LEUK ESTERASE NEGATIVE (NEGATIVE); URINE NITRITE NEGATIVE (NEGATIVE)
[2017-12-11 08:43] LABS: URINE PROTEIN 1+ (NEGATIVE)
[2017-12-11 08:46] LABS: CALCIUM OXALATE CRYSTALS FEW /hpf (NONE SEEN); URINE MUCUS MANY
--- NOTE | 2017-12-11 09:48 | EKG ---
Test Reason : Blood Pressure : / mmHG Vent. Rate : 082 BPM Atrial Rate : 082 BPM P-R Int : 178 ms QRS Dur : 080 ms QT Int : 346 ms P-R-T Axes : 010 101 059 degrees QTc Int : 404 ms NORMAL SINUS RHYTHM RIGHTWARD AXIS WHEN COMPARED WITH ECG OF 29-SEP-2017 23:43, NO SIGNIFICANT CHANGE WAS FOUND Confirmed by BRI ALMONTE MD ([id number]) on 12/11/2017 9:48:19 AM Referred By: Confirmed By:BRI ALMONTE MD
[2017-12-11 09:56] LABS: HEMATOCRIT 40.2 % (35.4-49); HEMOGLOBIN 13.4 GM/dL (11.7-16.9); MCH 28.2 pg (25.7-33.7); MCHC 33.2 g/dl (32.0-35.9); MEAN CELL VOLUME 84.9 fl (80-96); MEAN PLT VOLUME 8.4 fl (7.5-11.1); PLATELET COUNT 255 K/MM3 (134-434); RBC 4.74 M/mm3 (4.00-5.60); RDW 14.8 % (11.9-15.9); WHITE BLOOD COUNT 5.8 K/mm3 (4.0-10.0)
[2017-12-11 09:59] LABS: CHLORIDE 105 mmol/L (98-107); POTASSIUM 4.3 mmol/L (3.5-5.1); SODIUM 140 mmol/L (136-145)
[2017-12-11] MEDS: NICOTINE 21 MG/24 HOURS TOPICAL PATCH TD SCH (10:06)
[2017-12-11] MEDS: PRENATAL VITAMINS W/ FOLIC ACID TABLET (FP) PO SCH (10:07)
[2017-12-11 10:38] LABS: ALBUMIN 3.7 g/dl (3.4-5.0); ALK PHOS 80 U/L (45-117); ANION GAP 9 (8-16); BILIRUBIN,TOTAL 0.6 mg/dL (0.2-1.0); BLOOD UREA NITROGEN 8 mg/dL (7-18); CO2 26 mmol/L (21-32); CREATININE 0.7 mg/dL (0.7-1.3); GLUCOSE,RANDOM 87 mg/dL (74-106); SGOT/AST 23 U/L (15-37); SGPT/ALT 37 U/L (12-78)
[2017-12-11] MEDS: THIAMINE HCL 100 MG TABLET (FP) PO SCH (21:49)
[2017-12-11] MEDS ORDERED: QUEtiapine FUMARATE 200 MG TABLET PO SCH (22:00)
[2017-12-12 07:25] VITALS: BP 133/81; PULSE 78; TEMP 98.5
[2017-12-12] MEDS: NICOTINE 21 MG/24 HOURS TOPICAL PATCH TD SCH (10:30)
[2017-12-12] MEDS: PRENATAL VITAMINS W/ FOLIC ACID TABLET (FP) PO SCH (10:30)
--- NOTE | 2017-12-12 14:03 | PN ---
[facility] Progress Note Note: RECEIVED NOTICE FROM Cee ORTIZ RN THAT PATIENT INTENDS TO LEAVE REHAB UNIT AMA. PATIENT ASSESSED, PATIENT MEDICALLY STABLE AT THIS TIME. COVERING PSYCHIATRIST FOR UNIT ALSO NOTIFIED. Tony DELA CRUZ NP.
== END 2017-12-12 16:00 | disposition left against medical advice (07) | DRG 770 ==
LOC: YASAS 13:27 → Y3W 18:55 → Y5N 12-11 15:19
PROVIDERS: ADMIT Psychiatry & Neurology Psychiatry; ATTEND Psychiatry & Neurology Psychiatry
PROC: HZ42ZZZ Group Counseling for Substance Abuse Treatment, Cognitive-Behavioral (ICD-10-PCS; principal; 2017-12-10)
DX: F11.20 Opioid dependence, uncomplicated (principal); F14.20 Cocaine dependence, uncomplicated; F12.20 Cannabis dependence, uncomplicated; F17.210 Nicotine dependence, cigarettes, uncomplicated; F31.9 Bipolar disorder, unspecified; F90.9 Attention-deficit hyperactivity disorder, unspecified type; Z91.013 Allergy to seafood
CPT/HCPCS: 36415; 80053; 81003; 81015; 85027; 86593; 87389; 93005; 93010

== ENCOUNTER 2018-01-25 15:08 | Emergency (ER) | payer OTHER ==
--- NOTE | 2018-01-25 15:38 | PDOC ---
Rapid Medical Evaluation Chief Complaint: Substance Abuse Time Seen by Provider: 01/25/18 15:35 Medical Evaluation: Allergies Allergy/AdvReac Type Severity Reaction Status Date / Time fish derived Allergy Severe Rash Verified 01/25/18 15:17 shellfish derived Allergy Severe Rash Verified 01/25/18 15:17 No Known Drug Allergies Allergy Verified 01/25/18 15:17 CRAB Allergy Severe Rash Uncoded 01/25/18 15:17 SEAFOOD Allergy Severe Rash Uncoded 01/25/18 15:17 Vital Signs Temp Pulse Resp BP Pulse Ox 97.7 F 96 H 18 93/56 96 01/25/18 15:18 01/25/18 15:18 01/25/18 15:18 01/25/18 15:18 01/25/18 15:18 01/25/18 15:36 Patient c/o: requesting heroin detox, last used today, went to [facility] but sent here secondary to level of consciousness Patient on brief exam: vss, arousable to repetitive verbal stimuli Patient ordered for: none Patient to proceed to the ED Discharge Disposition - Diagnosis Opioid dependence - Referrals - Patient Instructions - Post Discharge Activity
--- NOTE | 2018-01-25 18:46 | PDOC ---
History of Present Illness - General Chief Complaint: Substance Abuse Stated Complaint: OVERDOSE Time Seen by Provider: 01/25/18 15:35 History Source: Patient - History of Present Illness Initial Comments: The patient is a 23M who presents for detox/overdose of heroine from [facility]. The patient denies any complaints at this time and says he is here, 'because they sent me.' Reported at the facility he was unable to complete the entrance interview. He denies chest pain, CALL, vision changes, fevers, abdominal pain, N/V/C/D, or changes in urination. 01/25/18 19:03 Past History - Past Medical History Allergies/Adverse Reactions: Allergies Allergy/AdvReac Type Severity Reaction Status Date / Time fish derived Allergy Severe Rash Verified 01/25/18 18:42 shellfish derived Allergy Severe Rash Verified 01/25/18 18:42 No Known Drug Allergies Allergy Verified 01/25/18 18:42 CRAB Allergy Severe Rash Uncoded 01/25/18 18:42 SEAFOOD Allergy Severe Rash Uncoded 01/25/18 18:42 Home Medications: Ambulatory Orders Quetiapine Fumarate [Seroquel -] 400 mg PO HS 01/25/18 Anemia: No Asthma: No Cancer: No Cardiac Disorders: No CVA: No COPD: No CHF: No Dementia: No Diabetes: No GI Disorders: No Disorders: No HTN: No Hypercholesterolemia: No Kidney Stones: No Liver Disease: No Seizures: No Thyroid Disease: No Other medical history: DENIES. - Surgical History Abdominal Surgery: No Appendectomy: No Cardiac Surgery: No Cholecystectomy: No Lung Surgery: No Neurologic Surgery: No Orthopedic Surgery: Yes (RT ANKLE 2010) - Reproductive History Testicular Surgery: No - Suicide/Smoking/Psychosocial Hx Smoking History: Current every day smoker Have you smoked in the past 12 months: Yes Number of Cigarettes Smoked Daily: 4 Cigars Per Day: 0 Information on smoking cessation initiated: Yes 'Breaking Loose' booklet given: 12/10/17 Hx Alcohol Use: No Drug/Substance Use Hx: Yes (HEROIN) Substance Use Type: Cocaine, Heroin Hx Substance Use Treatment: Yes (2 previous inpt detox & one inpt rehab @ [facility]) Review of Systems - Review of Systems Able to Perform ROS?: Yes Comments:: GENERAL/CONSTITUTIONAL: No fever or chills. No weakness HEAD, EYES, EARS, NOSE AND THROAT: No change in vision. No ear pain or discharge. No sore throat CARDIOVASCULAR: No chest pain or shortness of breath RESPIRATORY: No cough, wheezing, or hemoptysis. GASTROINTESTINAL: No nausea, vomiting, diarrhea or constipation GENITOURINARY: No dysuria, frequency, or change in urination MUSCULOSKELETAL: No joint or muscle swelling or pain. No neck or back pain SKIN: No rash NEUROLOGIC: No headache, vertigo, loss of consciousness, or change in strength/ sensation. ENDOCRINE: No increased thirst. No abnormal weight change HEMATOLOGIC/LYMPHATIC: No anemia, easy bleeding, or history of blood clots ALLERGIC/IMMUNOLOGIC: No hives or skin allergy 01/25/18 22:02 Is the patient limited [place] Islander proficient: No *Physical Exam - Vital Signs Last Vital Signs Temp Pulse Resp BP Pulse Ox 97.7 F 96 H 18 93/56 96 01/25/18 15:18 01/25/18 15:18 01/25/18 15:18 01/25/18 15:18 01/25/18 15:18 - Physical Exam Comments: GENERAL: Somnolent, oriented x3, no distress HEAD: normocephalic, atraumatic EYES: PERRLA, EOMI, sclera anicteric, conjunctiva clear ENT: hearing grossly normal, nares patent NECK: Normal ROM, no JVD LUNGS: Breathing comfortably on room air with symmetric chest rise HEART: Regular rate and rhythm EXTREMITIES : Normal range of motion, no edema. No clubbing or cyanosis. Well healed right ankle surgical scar. SKIN: Warm, Dry, acne 01/25/18 22:03 Medical Decision Making - Medical Decision Making The patient is a 23M with a history of substance abuse who presents from [facility] for heroine detox/overdose and denies other substance use today ED Course: Patient arousable to persistent verbal stimuli, otherwise will fall back asleep , is protecting airway, HR 76, O2 100%RA Will continue with serial exams Plan for discharge back to [facility] when patient is more alert 01/25/18 19:04 Patient is more alert and more easily arousable to voice. Is A&Ox4; breathing comfortably on room air and denies any complaints. Able to follow simple commands. 01/25/18 21:56 The patient is A&Ox3, tolerating a diet, and denies complaints Dispo: Will be discharged back to [facility] for detox 01/25/18 22:51 *DC/Admit/Observation/Transfer Diagnosis at time of Disposition: Opioid dependence - Discharge Dispostion Disposition: HOME Condition at time of disposition: Improved Decision to Admit order: No - Referrals - Patient Instructions Printed Discharge Instructions: Chemical Dependency (Narcotic) (Alternative Therapy) - Post Discharge Activity
[2018-01-25] MEDS ORDERED: SODIUM CHLORIDE 0.9% 500 ML INFUS.BAG IV ONE (19:30)
--- NOTE | 2018-01-25 19:59 | PDOC ---
Attending Attestation - HPI HPI: 01/25/18 20:02 The patient is a 23 year old male, with a significant past medical history of heroin abuse, who presents to the emergency department for evaluation after being found overly somnolent at [facility] for detox today. He admits to using heroin today. The patient denies chest pain, shortness of breath, headache and dizziness. The patient denies fever, chills, nausea, vomit, diarrhea and constipation. The patient denies dysuria, frequency, urgency and hematuria. Allergies: NKDA - Physicial Exam PE: 01/25/18 20:03 GENERAL: +somnolent but easily arousable. Well developed, well nourished. No acute distress. HEENT: Normocephalic, atraumatic. PERRLA, EOMI. No conjunctival pallor. Sclera are non- icteric. Moist mucous membranes. Oropharynx is clear. NECK: Supple. Full ROM. No JVD. Carotid pulses 2+ and symmetric, without bruits. No thyromegaly. No lymphadenopathy. CARDIOVASCULAR: Regular rate and rhythm. No murmurs, rubs, or gallops. Distal pulses are 2+ and symmetric. PULMONARY: No evidence of respiratory distress. Lungs clear to auscultation bilaterally. No wheezing, rales or rhonchi. ABDOMINAL: Soft. Non-tender. Non-distended. No rebound or guarding. No organomegaly. Normoactive bowel sounds. MUSCULOSKELETAL Normal range of motion at all joints. No bony deformities or tenderness. No CVA tenderness. EXTREMITIES: No cyanosis. No clubbing. No edema. No calf tenderness. SKIN: +Acne on back. Warm and dry. Normal capillary refill. No rashes. No jaundice. NEUROLOGICAL: Alert, awake, appropriate. Cranial nerves 2-12 intact. Normoreflexic in the upper and lower extremities. Normal speech. Toes are down-going bilaterally. Gait is normal without ataxia. Able to answer simple questions with simple answers. PSYCHIATRIC: Cooperative. Good eye contact. Appropriate mood and affect. - Medical Decision Making 01/25/18 20:05 Documentation prepared by Lakia Briceno, acting as biomedical electronics technician for Mayelin Martínez MD <Lakia Briceno - Last Filed: 01/25/18 22:47> - Resident Resident Name: Reznicek,Wojciech - ED Attending Attestation I have performed the following: I have examined & evaluated the patient, The case was reviewed & discussed with the resident, I agree w/resident's findings & plan, Exceptions are as noted - HPI HPI: 01/25/18 19:57 23-year-old male brought in by ambulance from [facility] detox for altered mental status. Patient has a long-standing history of cocaine abuse and reports taking cocaine today The patient was too somnolent to complete the interview process at detox and was sent for further evaluation and observation - Medical Decision Making 01/25/18 20:17 Patient is sleeping now, but he did eat a sandwich and drink some juice. He is not in any respiratory distress, he was not apneic and he is not hypoxic Patient will be discharged back to [facility] when he is more alert 01/25/18 22:48 I spoke w Mónica MILLER FIRST and we discussed the pt and he can go back to [facility] <Mayelin Martínez - Last Filed: 01/25/18 22:50>
--- NOTE | 2018-01-26 01:28 | HP ---
COWS - Scale Resting Pulse: 0= [place] 80 or Below Sweatin= Chills/Flushing Restless Observation: 0= Sits Still Pupil Size: 1= Pupils >than Normal Bone or Joint Aches: 4=Acute Joint/Muscle Pain Runny Nose/ Eye Tearin= Nasal Congestion GI Upset > 30mins: 1= Stomach Cramp Tremor Observation: 4= Gross Tremor/Twitching Yawning Observation: 0= None Anxiety or Irritability: 2=Irritable/Anxious Goose Flesh Skin: 0=Smooth Skin COWS Score: 14 Admission ROS [facility] - [facility] Chief Complaint: Heroin withdrawal symptoms Allergies/Adverse Reactions: Allergies Allergy/AdvReac Type Severity Reaction Status Date / Time fish derived Allergy Severe Rash Verified 01/25/18 18:42 shellfish derived Allergy Severe Rash Verified 01/25/18 18:42 No Known Drug Allergies Allergy Verified 01/25/18 18:42 CRAB Allergy Severe Rash Uncoded 01/25/18 18:42 SEAFOOD Allergy Severe Rash Uncoded 01/25/18 18:42 History of Present Illness: 23 years old male with a long history of heroine dependent is seeking admission to detox. Patient has been to previous detox and reports 3 years of sobriety. He denies past medical history and suicidal attempt/ or suicidal ideation at this time. Exam Limitations: No Limitations - Ebola screening Have you traveled outside of the country in the last 21 days: No Have you had contact with anyone from an Ebola affected area: No Have you been sick,other than usual withdrawal symptoms: No Do you have a fever: No - Review of Systems Constitutional: Chills, Malaise EENT: reports: No Symptoms Reported Respiratory: reports: No Symptoms reported Cardiac: reports: No Symptoms Reported GI: reports: No Symptoms Reported Musculoskeletal: reports: No Symptoms Reported, Joint Pain Integumentary: reports: Dryness Neuro: reports: Tremors Endocrine: reports: No Symptoms Reported Hematology: reports: No Symptoms Reported Psychiatric: reports: Orientated x3, Depressed Other Systems: Reviewed and Negative Patient History - Patient Medical History Hx Anemia: No Hx Asthma: No Hx Chronic Obstructive Pulmonary Disease (COPD): No Hx Cancer: No Hx Cardiac Disorders: No Hx Congestive Heart Failure: No Hx Hypertension: No Hx Hypercholesterolemia: No Hx Pacemaker: No HX Cerebrovascular Accident: No Hx Seizures: No Hx Dementia: No Hx Diabetes: No Hx Gastrointestinal Disorders: No Hx Liver Disease: No Hx Genitourinary Disorders: No Hx Sexually Transmitted Disorders: No Hx Renal Disease (ESRD): No Hx Thyroid Disease: No Hx Human Immunodeficiency Virus (HIV): No Hx Hepatitis C: No Hx Depression: Yes Hx Suicide Attempt: No (Denies suicide attempt and suicidal ideation at this time) Hx Bipolar Disorder: Yes (AND ADHD ) Hx Schizophrenia: No Other Medical History: DENIES. - Patient Surgical History Past Surgical History: Yes Hx Neurologic Surgery: No Hx Cataract Extraction: No Hx Cardiac Surgery: No Hx Lung Surgery: No Hx Abdominal Surgery: No Hx Appendectomy: No Hx Cholecystectomy: No Hx Genitourinary Surgery: No Hx Section: No Hx Orthopedic Surgery: Yes ([facility] 2010) Anesthesia Reaction: No - PPD History Previous Implant?: Yes Documented Results: Negative w/proof Implanted On Prior [facility] Admission?: Yes Date: 02/04/17 Results: 0MM PPD to be Administered?: No - Reproductive History Patient is a Female of Child Bearing Age (11 -55 yrs old): No (MALE) - Smoking Cessation Smoking history: Current every day smoker Have you smoked in the past 12 months: Yes Aproximately how many cigarettes per day: 4 Cigars Per Day: 0 Hx Chewing Tobacco Use: No Initiated information on smoking cessation: Yes 'Breaking Loose' booklet given: 01/26/18 - Substance & Tx. History Hx Alcohol Use: No Hx Substance Use: Yes Substance Use Type: Alcohol, Cocaine, Heroin Hx Substance Use Treatment: Yes ([facility]) - Substances Abused Heroin Route: Injection Frequency: Daily Date of Last Use: 01/25/18 Family Disease History - Family Disease History Family History: Denies Admission Physical Exam [facility] - Vital Signs Vital Signs: Vital Signs - 24 hr 01/25/18 01/25/18 15:18 19:46 Temperature 97.7 F Pulse Rate 96 H Pulse Rate [ 63 Right] Respiratory 18 14 Rate Blood Pressure 93/56 Blood Pressure 118/81 [Left Arm] O2 Sat by Pulse 96 100 Oximetry (%) - Physical General Appearance: Yes: Moderate Distress HEENTM: Yes: EOMI, Normal ENT Inspection, Normocephalic, Normal Voice, JOSE Respiratory: Yes: Lungs Clear, Normal Breath Sounds, No Respiratory Distress Neck: Yes: Supple Breast: Yes: Breast Exam Deferred Cardiology: Yes: Regular Rhythm, Regular Rate Abdominal: Yes: Normal Bowel Sounds, Soft Genitourinary: Yes: Within Normal Limits Back: Yes: Normal Inspection Musculoskeletal: Yes: Muscle Pain Extremities: Yes: Tremors Neurological: Yes: Alert, Normal Mood/Affect Integumentary: Yes: Dry Lymphatic: Yes: Within Normal Limits - Diagnostic (1) Cannabis dependence Status: Chronic (2) Cocaine dependence, uncomplicated Status: Chronic (3) Nicotine dependence Status: Chronic Qualifiers: (4) Opioid dependence with withdrawal Status: Chronic Cleared for Admission [facility] - Detox or Rehab [facility] Level of Care: Medically Managed Detox Regimen/Protocol: Methadone [facility] Breath Alcohol Content Breath Alcohol Content: 0 Vital Signs - Vital Signs Vital Signs Refused: No Temperature: 98.1 F Temperature Source: Oral Pulse Rate: 77 Respiratory Rate: 16 Blood Pressure: 122/83 BP Location: Left Arm Blood Pressure Position: Sitting - Height Height: 5 ft 9 in - Weight Weight: 131 lb Weight Measurement Method: Standing Scale Body Mass Index (BMI): 19.3 - Bowel Function Bowel Movement: No Urine Drug Screen - Control Is Test Valid: Yes - Results Drug Screen Negative: Yes Urine Drug Screen Results: THC-Marijuana, SHREYAS-Cocaine, OPI-Opiates, OXY- Oxycodone
[2018-01-26] MEDS ORDERED: guaiFENesin/D-METHORPHAN HB 10 ML UNIT-DOSE CUPS PO PRN (01:37)
[2018-01-26] MEDS ORDERED: LOPERAMIDE HCL 2 MG CAPSULE PO PRN (01:37)
[2018-01-26] MEDS ORDERED: MENTHOL/PHENOL 1 EACH UD MM PRN (01:37)
[2018-01-26] MEDS ORDERED: IBUPROFEN 400 MG TABLET (FP) PO PRN (01:37)
[2018-01-26] MEDS ORDERED: METHADONE HCL 10 MG TABLET (FOR DETOX USE ONLY) PO ONE ×3 (01:37→23:00)
[2018-01-26] MEDS ORDERED: NICOTINE POLACRILEX 2 MG GUM BC PRN (01:37)
[2018-01-26] MEDS ORDERED: MAGNESIUM HYDROX 2400MG/30ML ORAL SUSPENSION 30 ML CUP PO PRN (01:37)
[2018-01-26] MEDS ORDERED: MAG HYDROX/AL HYDROX/SIMETH 30 ML UNIT-DOSE CUP PO PRN (01:37)
[2018-01-26] MEDS ORDERED: P-EPHED 60MG/TRIPROLIDI 2.5MG TABLET PO PRN (01:37)
[2018-01-26] MEDS ORDERED: ACETAMINOPHEN 325 MG TABLET (FP) PO PRN (01:37)
[2018-01-26] MEDS ORDERED: MAGNESIUM CITRATE 300 ML BOTTLE PO PRN (01:37)
[2018-01-26] MEDS ORDERED: diazePAM 5 MG TABLET PO PRN (01:37)
--- NOTE | 2018-01-26 01:40 | HP ---
COWS - Scale Resting Pulse: 0= [place] 80 or Below Sweatin= Chills/Flushing Restless Observation: 0= Sits Still Pupil Size: 1= Pupils >than Normal Bone or Joint Aches: 4=Acute Joint/Muscle Pain Runny Nose/ Eye Tearin= Nasal Congestion GI Upset > 30mins: 1= Stomach Cramp Tremor Observation: 4= Gross Tremor/Twitching Yawning Observation: 0= None Anxiety or Irritability: 2=Irritable/Anxious Goose Flesh Skin: 0=Smooth Skin COWS Score: 14 Admission ROS S - HPI Allergies/Adverse Reactions: Allergies Allergy/AdvReac Type Severity Reaction Status Date / Time fish derived Allergy Severe Rash Verified 01/25/18 18:42 shellfish derived Allergy Severe Rash Verified 01/25/18 18:42 No Known Drug Allergies Allergy Verified 01/25/18 18:42 CRAB Allergy Severe Rash Uncoded 01/25/18 18:42 SEAFOOD Allergy Severe Rash Uncoded 01/25/18 18:42 - Ebola screening Have you traveled outside of the country in the last 21 days: No Have you had contact with anyone from an Ebola affected area: No Have you been sick,other than usual withdrawal symptoms: No Do you have a fever: No Patient History - Patient Medical History Hx Anemia: No Hx Asthma: No Hx Chronic Obstructive Pulmonary Disease (COPD): No Hx Cancer: No Hx Cardiac Disorders: No Hx Congestive Heart Failure: No Hx Hypertension: No Hx Hypercholesterolemia: No Hx Pacemaker: No HX Cerebrovascular Accident: No Hx Seizures: No Hx Dementia: No Hx Diabetes: No Hx Gastrointestinal Disorders: No Hx Liver Disease: No Hx Genitourinary Disorders: No Hx Sexually Transmitted Disorders: No Hx Renal Disease (ESRD): No Hx Thyroid Disease: No Hx Human Immunodeficiency Virus (HIV): No Hx Hepatitis C: No Hx Depression: Yes Hx Suicide Attempt: No (Denies suicide attempt and suicidal ideation at this time) Hx Bipolar Disorder: Yes (AND ADHD ) Hx Schizophrenia: No Other Medical History: DENIES. - Patient Surgical History Past Surgical History: Yes Hx Neurologic Surgery: No Hx Cataract Extraction: No Hx Cardiac Surgery: No Hx Lung Surgery: No Hx Breast Surgery: No Hx Breast Biopsy: No Hx Abdominal Surgery: No Hx Appendectomy: No Hx Cholecystectomy: No Hx Genitourinary Surgery: No Hx Section: No Hx Orthopedic Surgery: Yes ([facility] 2010) Anesthesia Reaction: No - PPD History Previous Implant?: Yes Documented Results: Negative w/proof Implanted On Prior [facility] Admission?: Yes Date: 02/04/17 Results: 0MM - Smoking Cessation Smoking history: Current every day smoker Have you smoked in the past 12 months: Yes Aproximately how many cigarettes per day: 4 Cigars Per Day: 0 Hx Chewing Tobacco Use: No Initiated information on smoking cessation: Yes - Substances Abused Heroin Route: Injection Frequency: Daily Date of Last Use: 01/25/18 Admission Physical Exam S - Vital Signs Vital Signs: Vital Signs - 24 hr 01/25/18 01/25/18 01/26/18 15:18 19:46 01:39 Temperature 97.7 F 98.1 F Pulse Rate 96 H 77 Pulse Rate [ 63 Right] Respiratory 18 14 16 Rate Blood Pressure 93/56 122/83 Blood Pressure 118/81 [Left Arm] O2 Sat by Pulse 96 100 Oximetry (%) - Diagnostic (1) Cannabis dependence Status: Chronic (2) Cocaine dependence, uncomplicated Status: Chronic (3) Nicotine dependence Status: Chronic Qualifiers: (4) Opioid dependence with withdrawal Status: Chronic [facility] Breath Alcohol Content Breath Alcohol Content: 0 Urine Drug Screen - Results Drug Screen Negative: Yes Urine Drug Screen Results: THC-Marijuana, SHREYAS-Cocaine, OPI-Opiates, OXY- Oxycodone
[2018-01-26 02:03] VITALS: BP 93/56; PULSE 96; TEMP 97.7; BMI 17.7
[2018-01-26] MEDS ORDERED: PRENATAL VITAMINS W/ FOLIC ACID TABLET (FP) PO SCH (10:00)
[2018-01-26] MEDS ORDERED: NICOTINE 14 MG/24 HOURS TOPICAL PATCH TD SCH (10:00)
--- NOTE | 2018-01-26 16:59 | EKG ---
Test Reason : Blood Pressure : / mmHG Vent. Rate : 074 BPM Atrial Rate : 074 BPM P-R Int : 174 ms QRS Dur : 082 ms QT Int : 360 ms P-R-T Axes : 010 102 043 degrees QTc Int : 399 ms NORMAL SINUS RHYTHM RIGHTWARD AXIS BORDERLINE ECG Confirmed by MD JEAN, FABIENNE ([id number]) on 01/26/2018 4:59:38 PM Referred By: Confirmed By:FABIENNE PENA MD
[2018-01-26] MEDS ORDERED: THIAMINE HCL 100 MG TABLET (FP) PO SCH (22:00)
[2018-01-26] MEDS ORDERED: MELATONIN 5 MG TABLETS PO PRN (22:00)
[2018-01-27] MEDS ORDERED: METHADONE HCL 10 MG TABLET (FOR DETOX USE ONLY) PO ONE ×2 (10:00)
[2018-01-28] MEDS ORDERED: METHADONE HCL 5 MG TABLET (FOR DETOX USE ONLY) PO ONE (10:00)
[2018-01-29] MEDS ORDERED: METHADONE HCL 5 MG TABLET (FOR DETOX USE ONLY) PO ONE (10:00)
[2018-01-31] MEDS ORDERED: METHADONE HCL 5 MG TABLET (FOR DETOX USE ONLY) PO ONE (06:00)
== END 2018-01-25 23:28 | disposition home or self-care (01) ==
LOC: JER 15:08
DX: F11.20 Opioid dependence, uncomplicated (principal); F17.210 Nicotine dependence, cigarettes, uncomplicated; F14.20 Cocaine dependence, uncomplicated; Z91.013 Allergy to seafood
CPT/HCPCS: 93005; 93010; 99282-25

== ENCOUNTER 2018-01-26 01:18 | Inpatient (IN) | payer OTHER ==
[2018-01-26] MEDS ORDERED: ACETAMINOPHEN 325 MG TABLET (FP) PO PRN (01:47)
[2018-01-26] MEDS ORDERED: guaiFENesin/D-METHORPHAN HB 10 ML UNIT-DOSE CUPS PO PRN (01:48)
[2018-01-26] MEDS ORDERED: LOPERAMIDE HCL 2 MG CAPSULE PO PRN (01:49)
[2018-01-26] MEDS ORDERED: MAGNESIUM CITRATE 300 ML BOTTLE PO PRN (01:50)
[2018-01-26] MEDS ORDERED: MAG HYDROX/AL HYDROX/SIMETH 30 ML UNIT-DOSE CUP PO PRN (01:50)
[2018-01-26] MEDS ORDERED: MAGNESIUM HYDROX 2400MG/30ML ORAL SUSPENSION 30 ML CUP PO PRN (01:51)
[2018-01-26] MEDS ORDERED: MENTHOL/PHENOL 1 EACH UD MM PRN (01:52)
--- NOTE | 2018-01-26 01:57 | HP ---
COWS - Scale Resting Pulse: 0= [place] 80 or Below Sweatin=Flushed/Facial Moisture Restless Observation: 1= Difficult to Sit Still Pupil Size: 0= Normal to Room Light Bone or Joint Aches: 4=Acute Joint/Muscle Pain Runny Nose/ Eye Tearin= Nasal Congestion GI Upset > 30mins: 1= Stomach Cramp Tremor Observation: 0= None Yawning Observation: 1= 1-2x During Session Anxiety or Irritability: 4=Extreme Anxiety Goose Flesh Skin: 0=Smooth Skin COWS Score: 14 Admission ROS [facility] - [facility] Chief Complaint: Alcohol withdrawal symptom Allergies/Adverse Reactions: Allergies Allergy/AdvReac Type Severity Reaction Status Date / Time fish derived Allergy Severe Rash Verified 01/25/18 18:42 shellfish derived Allergy Severe Rash Verified 01/25/18 18:42 No Known Drug Allergies Allergy Verified 01/25/18 18:42 CRAB Allergy Severe Rash Uncoded 01/25/18 18:42 SEAFOOD Allergy Severe Rash Uncoded 01/25/18 18:42 History of Present Illness: 23 years old male with a long history of heroine dependent is seeking admission to detox. Patient has been to previous detox and reports 3 years of sobriety. He denies past medical history and suicidal attempt/ or suicidal ideation at this time. Exam Limitations: No Limitations - Ebola screening Have you traveled outside of the country in the last 21 days: No Have you had contact with anyone from an Ebola affected area: No Have you been sick,other than usual withdrawal symptoms: No Do you have a fever: No - Review of Systems Constitutional: Chills, Malaise EENT: reports: No Symptoms Reported Respiratory: reports: No Symptoms reported Cardiac: reports: No Symptoms Reported GI: reports: Poor Appetite, Poor Fluid Intake, Abdominal cramping Musculoskeletal: reports: Joint Pain Integumentary: reports: Dryness Neuro: reports: Tremors Endocrine: reports: No Symptoms Reported Hematology: reports: No Symptoms Reported Psychiatric: reports: Orientated x3, Depressed Other Systems: Reviewed and Negative Patient History - Patient Medical History Hx Anemia: No Hx Asthma: No Hx Chronic Obstructive Pulmonary Disease (COPD): No Hx Cancer: No Hx Cardiac Disorders: No Hx Congestive Heart Failure: No Hx Hypertension: No Hx Hypercholesterolemia: No Hx Pacemaker: No HX Cerebrovascular Accident: No Hx Seizures: No Hx Dementia: No Hx Diabetes: No Hx Gastrointestinal Disorders: No Hx Liver Disease: No Hx Genitourinary Disorders: No Hx Sexually Transmitted Disorders: No Hx Renal Disease (ESRD): No Hx Thyroid Disease: No Hx Human Immunodeficiency Virus (HIV): No Hx Hepatitis C: No Hx Depression: Yes Hx Suicide Attempt: No Hx Bipolar Disorder: Yes (AND ADHD ) Hx Schizophrenia: No - Patient Surgical History Past Surgical History: Yes Hx Neurologic Surgery: No Hx Cataract Extraction: No Hx Cardiac Surgery: No Hx Lung Surgery: No Hx Abdominal Surgery: No Hx Appendectomy: No Hx Cholecystectomy: No Hx Genitourinary Surgery: No Hx Section: No Hx Orthopedic Surgery: Yes ([facility] 2010) Anesthesia Reaction: No - PPD History Date: 02/04/17 Results: 0MM PPD to be Administered?: No - Reproductive History Patient is a Female of Child Bearing Age (11 -55 yrs old): No (Male) - Smoking Cessation Smoking history: Current every day smoker Have you smoked in the past 12 months: Yes Aproximately how many cigarettes per day: 4 Cigars Per Day: 0 Hx Chewing Tobacco Use: No Initiated information on smoking cessation: Yes 'Breaking Loose' booklet given: 01/26/18 - Substance & Tx. History Hx Alcohol Use: Yes Hx Substance Use: Yes Substance Use Type: Alcohol, Cocaine, Heroin Hx Substance Use Treatment: Yes ([facility]) Family Disease History - Family Disease History Family History: Denies Admission Physical Exam [facility] - Physical General Appearance: Yes: Moderate Distress, Anxious HEENTM: Yes: EOMI, Normal ENT Inspection, Normocephalic, Normal Voice, JOSE Respiratory: Yes: Lungs Clear, Normal Breath Sounds, No Respiratory Distress Neck: Yes: Supple Breast: Yes: Breast Exam Deferred Cardiology: Yes: Regular Rhythm, Regular Rate Abdominal: Yes: Normal Bowel Sounds, Soft Genitourinary: Yes: Within Normal Limits Back: Yes: Normal Inspection Musculoskeletal: Yes: Within Normal Limits Neurological: Yes: Alert, Normal Mood/Affect Integumentary: Yes: Warm Lymphatic: Yes: Within Normal Limits - Diagnostic (1) Cocaine dependence, uncomplicated Current Visit: No Status: Chronic (2) Nicotine dependence Current Visit: No Status: Chronic Qualifiers: (3) Opioid dependence with withdrawal Current Visit: No Status: Chronic Cleared for Admission [facility] - Detox or Rehab [facility] Level of Care: Medically Managed Detox Regimen/Protocol: Librium S Breath Alcohol Content Breath Alcohol Content: 0 Vital Signs - Vital Signs Vital Signs Refused: Yes Temperature: 98.1 F Temperature Source: Oral Pulse Rate: 77 Respiratory Rate: 16 Blood Pressure: 122/83 - Height Height: 5 ft 9 in - Weight Weight: 131 lb Weight Measurement Method: Standing Scale Body Mass Index (BMI): 19.3 - Bowel Function Bowel Movement: No
[2018-01-26] MEDS ORDERED: P-EPHED 60MG/TRIPROLIDI 2.5MG TABLET PO PRN (02:00)
[2018-01-26] MEDS ORDERED: METHADONE HCL 10 MG TABLET (FOR DETOX USE ONLY) PO ONE ×3 (02:00→23:00)
--- NOTE | 2018-01-26 02:08 | HP ---
COWS - Scale Resting Pulse: 0= [place] 80 or Below Sweatin=Flushed/Facial Moisture Restless Observation: 1= Difficult to Sit Still Pupil Size: 0= Normal to Room Light Bone or Joint Aches: 4=Acute Joint/Muscle Pain Runny Nose/ Eye Tearin= Nasal Congestion GI Upset > 30mins: 1= Stomach Cramp Tremor Observation: 2= Slight Tremor Visible Yawning Observation: 1= 1-2x During Session Anxiety or Irritability: 2=Irritable/Anxious Goose Flesh Skin: 0=Smooth Skin COWS Score: 14 Admission ROS S - [facility] Chief Complaint: Alcohol withdrawal symptoms Allergies/Adverse Reactions: Allergies Allergy/AdvReac Type Severity Reaction Status Date / Time fish derived Allergy Severe Rash Verified 01/25/18 18:42 shellfish derived Allergy Severe Rash Verified 01/25/18 18:42 No Known Drug Allergies Allergy Verified 01/25/18 18:42 CRAB Allergy Severe Rash Uncoded 01/25/18 18:42 SEAFOOD Allergy Severe Rash Uncoded 01/25/18 18:42 History of Present Illness: 23 years old male with a long history of alcohol dependence is seeking admission to detox. Patient has been in previous detox and reports 3 years of sobriety. He has medical history of Hep C and depression and denies suicide attempt or sucidal ideation at this time Exam Limitations: No Limitations - Ebola screening Have you traveled outside of the country in the last 21 days: No Have you had contact with anyone from an Ebola affected area: No Have you been sick,other than usual withdrawal symptoms: No Do you have a fever: No - Review of Systems Constitutional: Chills, Loss of Appetite, Malaise, Changes in sleep EENT: reports: No Symptoms Reported Respiratory: reports: No Symptoms reported Cardiac: reports: No Symptoms Reported GI: reports: Nausea, Poor Appetite, Poor Fluid Intake, Abdominal cramping : reports: No Symptoms Reported Musculoskeletal: reports: No Symptoms Reported Integumentary: reports: No Symptoms Reported Neuro: reports: No Symptoms reported Endocrine: reports: No Symptoms Reported Hematology: reports: No Symptoms Reported Psychiatric: reports: Orientated x3, Anxious, Depressed Other Systems: Reviewed and Negative Patient History - Patient Medical History Hx Anemia: No Hx Asthma: No Hx Chronic Obstructive Pulmonary Disease (COPD): No Hx Cancer: No Hx Cardiac Disorders: No Hx Congestive Heart Failure: No Hx Hypertension: No Hx Hypercholesterolemia: No Hx Pacemaker: No HX Cerebrovascular Accident: No Hx Seizures: No Hx Dementia: No Hx Diabetes: No Hx Gastrointestinal Disorders: No Hx Liver Disease: No Hx Genitourinary Disorders: No Hx Sexually Transmitted Disorders: No Hx Renal Disease (ESRD): No Hx Thyroid Disease: No Hx Human Immunodeficiency Virus (HIV): No Hx Hepatitis C: Yes Hx Depression: Yes Hx Suicide Attempt: No Hx Bipolar Disorder: Yes (AND ADHD ) Hx Schizophrenia: No - Patient Surgical History Past Surgical History: Yes Hx Neurologic Surgery: No Hx Cataract Extraction: No Hx Cardiac Surgery: No Hx Lung Surgery: No Hx Abdominal Surgery: No Hx Appendectomy: No Hx Cholecystectomy: No Hx Genitourinary Surgery: No Hx Section: No Hx Orthopedic Surgery: Yes ([facility] 2010) Anesthesia Reaction: No - PPD History Date: 02/04/17 Results: 0MM PPD to be Administered?: No - Reproductive History Patient is a Female of Child Bearing Age (11 -55 yrs old): No (Male) - Smoking Cessation Smoking history: Current every day smoker Have you smoked in the past 12 months: Yes Aproximately how many cigarettes per day: 4 Cigars Per Day: 0 Hx Chewing Tobacco Use: No Initiated information on smoking cessation: Yes 'Breaking Loose' booklet given: 01/26/18 - Substance & Tx. History Hx Alcohol Use: No Hx Substance Use: Yes Substance Use Type: Cocaine, Heroin, Marijuana Hx Substance Use Treatment: Yes ([facility]) - Substances Abused Heroin Route: Injection Frequency: Daily Age of first use: 14 Date of Last Use: 01/25/18 Family Disease History - Family Disease History Family History: Denies Admission Physical Exam [facility] - Physical General Appearance: Yes: Moderate Distress HEENTM: Yes: EOMI, Normal ENT Inspection, Normocephalic, Normal Voice, JOSE Respiratory: Yes: Lungs Clear, Normal Breath Sounds, No Respiratory Distress Neck: Yes: Supple Breast: Yes: Breast Exam Deferred Cardiology: Yes: Regular Rhythm, Regular Rate, S1, S2 Abdominal: Yes: Normal Bowel Sounds, Soft Genitourinary: Yes: Within Normal Limits Back: Yes: Normal Inspection Musculoskeletal: Yes: Muscle Pain Extremities: Yes: Tremors Neurological: Yes: Alert, Normal Mood/Affect Integumentary: Yes: Warm Lymphatic: Yes: Within Normal Limits - Diagnostic (1) Cocaine dependence, uncomplicated Current Visit: Yes Status: Chronic (2) Nicotine dependence Current Visit: Yes Status: Chronic Qualifiers: (3) Opioid dependence with withdrawal Current Visit: Yes Status: Chronic (4) Hep C w/o coma, chronic Current Visit: Yes Status: Acute (5) Depression Current Visit: Yes Status: Acute Cleared for Admission [facility] - Detox or Rehab [facility] Level of Care: Medically Managed Detox Regimen/Protocol: Librium [facility] Breath Alcohol Content Breath Alcohol Content: 0 Vital Signs - Vital Signs Vital Signs Refused: No Temperature: 98.1 F Temperature Source: Oral Pulse Rate: 77 Respiratory Rate: 16 Blood Pressure: 122/83 BP Location: Left Arm Blood Pressure Position: Sitting - Height Height: 5 ft 9 in - Weight Weight: 131 lb Weight Measurement Method: Standing Scale Body Mass Index (BMI): 19.3 - Bowel Function Bowel Movement: No Urine Drug Screen - Test Device Lot Number: [id number] Expiration Date: 03/28/20 - Control Is Test Valid: Yes - Results Drug Screen Negative: Yes Urine Drug Screen Results: THC-Marijuana, SHREYAS-Cocaine, OPI-Opiates
[2018-01-26 02:23] VITALS: BMI 19.3
[2018-01-26] MEDS: diazePAM 5 MG TABLET PO PRN ×3 (03:10→21:13)
[2018-01-26] MEDS: IBUPROFEN 400 MG TABLET (FP) PO PRN ×2 (03:11→21:13)
[2018-01-26] MEDS: NICOTINE POLACRILEX 2 MG GUM BUC PRN (03:14)
[2018-01-26] MEDS: PRENATAL VITAMINS W/ FOLIC ACID TABLET (FP) PO SCH (10:48)
[2018-01-26] MEDS: NICOTINE 14 MG/24 HOURS TOPICAL PATCH TD SCH (10:49)
--- NOTE | 2018-01-26 14:02 | PN ---
BHS Progress Note Note: PT WAS ADMITTED EARLIER TODAY. ALERT O X 3. C/O FATIGUE OTHERWISE DETOX TAPER PROCEEDING WELL. Vital Signs 01/26/18 01/26/18 01/26/18 06:27 07:43 09:51 Temperature 97.9 F 98.1 F 98.6 F Pulse Rate 65 77 75 Respiratory 16 16 18 Rate Blood Pressure 103/63 122/83 115/73 01/26/18 13:41 Temperature 98.2 F Pulse Rate 78 Respiratory 18 Rate Blood Pressure 118/71 LABS PENDING
[2018-01-26] MEDS: THIAMINE HCL 100 MG TABLET (FP) PO SCH (21:16)
[2018-01-26 22:44] LABS: URINE APPEARANCE CLEAR; URINE BILIRUBIN NEGATIVE (<2.0 mg/dL); URINE COLOR COLORLESS; URINE GLUCOSE (UA) NEGATIVE (NEGATIVE); URINE KETONE NEGATIVE (NEGATIVE); URINE LEUK ESTERASE NEGATIVE (NEGATIVE); URINE NITRITE NEGATIVE (NEGATIVE); URINE PROTEIN NEGATIVE (NEGATIVE); URINE UROBILINOGEN NEGATIVE mg/dL (0.2-1.0)
[2018-01-27] MEDS ORDERED: METHADONE HCL 10 MG TABLET (FOR DETOX USE ONLY) PO ONE (10:00)
[2018-01-27] MEDS: PRENATAL VITAMINS W/ FOLIC ACID TABLET (FP) PO SCH (10:34)
[2018-01-27] MEDS: diazePAM 5 MG TABLET PO PRN ×2 (10:34→17:51)
[2018-01-27] MEDS: NICOTINE 14 MG/24 HOURS TOPICAL PATCH TD SCH (10:34)
--- NOTE | 2018-01-27 12:51 | PN ---
BHS COWS - Scale Resting Pulse: 0= [place] 80 or Below Sweatin= Chills/Flushing Restless Observation: 3= Extraneous Movement Pupil Size: 2= Moderately Dilated Bone or Joint Aches: 1= Mild Discomfort Runny Nose/ Eye Tearin= None GI Upset > 30mins: 0= None Tremor Observation of Outstretched Hands: 1= Tremor [place], Not Seen Yawning Observation: 0= None Anxiety or Irritability: 2=Irritable/Anxious Goose Flesh Skin: 0=Smooth Skin COWS Score: 10 BHS Progress Note (SOAP) Subjective: TODAY IS PT'S FIRST FULL DAY HERE. PT IS [place]OB AM[place]UL[place] [address]. PT REFUSED TO TALK TO STAFF BUT AFTER TEAMING PT BY THIS STEMHOLE BORER AND TOPPER AND HIS COUNSELOR,TEN LAIRD, PT OPENED UP STATING HOW ANGRY HE HAS BEEN BECAUSE AMBULANCE WAS CALLED FOR HIM TO GO TO THE ER ON PERCEPTION THAT HE OVERDOSED WHEN HE ARRIVED HERE AND WAS NOT TALKING WHEN ASKED QUESTIONS. PT STATES HE HAS A HX OF SPEECH PROBLEM. THISWRITER AND COUNSELOR REASSURED PT THAT SUCH INTERVENTION WAS NECESSARY FOR THE PATIENT'S SAFETY AND THERE IS A NEED FOR HIM TO COMMUNICATE WITH US(STAFF) SO WE CAN BETTER HELP HIM AND GIVE HIM THE CARE HE NEEDS. PT VERBALIZED UNDERSTANDING. Objective: 01/27/18 12:51 Vital Signs 01/27/18 01/27/18 06:26 09:07 Temperature 97.0 F L 98.4 F Pulse Rate 55 L 76 Respiratory 18 18 Rate Blood Pressure 105/64 114/72 Laboratory Tests 01/26/18 18:04 Urine Color Colorless Urine Appearance Clear Urine pH 8.0 D Ur Specific [place] 1.004 Urine Protein Negative Urine Glucose (UA) Negative Urine Ketones Negative Urine Blood Negative Urine Nitrite Negative Urine Bilirubin Negative Urine Urobilinogen Negative Ur Leukocyte Esterase Negative LAB TO BE DONE. Assessment: 01/27/18 12:51 WITHDRAWAL SX Plan: CONTINUE DETOX
--- NOTE | 2018-01-27 13:04 | CONSULT ---
[facility] Psychiatric Consult - Data Date of interview: 01/27/18 Admission source: [facility] Identifying data: Readmission to [facility] for this 23 y/o male seeking detox treatment on 3 for heroin,cannabis and cocaine dependence.Patient is single without dependents,domiciled,unemployed and supported on SSI benefits. Substance Abuse History: Discussed with patient in this interview.Mr Granger endorses daily use of K2,cocaine and heroin.Smoking history: Current every day smoker. Have you smoked in the past 12 months: Yes. Aproximately how many cigarettes per day: 4. Cigars Per Day: 0. Hx Chewing Tobacco Use: No. Initiated information on smoking cessation: Yes. 'Breaking Loose' booklet given : 01/26/18. - Substance & Tx. History. Hx Alcohol Use: No. Hx Substance Use: Yes. Substance Use Type: Cocaine, Heroin, Marijuana. Hx Substance Use Treatment: Yes ([facility]). - Substances Abused. Heroin. Route: Injection. Frequency: Daily. Age of first use: 14. Date of Last Use: 01/25/18 Medical History: Hepatitis C.Noted history of orthosurgery for fracture of right ankle (2010). Psychiatric History: Patient reports a distant history of psychiatric hospitalizations ([facility]) and a recent admission (2015) to [facility].Diagnosed with ADHD during childhood/adolescence (treated with psychostimulants).Diagnosis was revised to Bipolar Disorder.Past treatment with valproate and seroquel.Mr Granger presents with a history of non-adherence to OPD care + psychotropic medications.Repeated pattern of dismissals from OPD programs ([facility] + [facility]).Patient was discharged from [facility] in November 2017.Did not follow with aftercare.Denies history of suicide attempts. Physical/Sexual Abuse/Trauma History: Patient denies history of abuse. Additional Comment: Urine Drug Screen Results: THC-Marijuana, SHREYAS-Cocaine, OPI- Opiates.Noted. Mental Status Exam - Mental Status Exam Alert and Oriented to: Time, Place Cognitive Function: Grossly Intact Patient Appearance: Unkempt, Disheveled Mood: Nervous, Withdrawn, Anxious Affect: Mood Congruent Patient Behavior: Passive, Fatigued, Cooperative Speech Pattern: Clear Voice Loudness: Normal Thought Process: Goal Oriented Thought Disorder: Not Present Hallucinations: Denies Suicidal Ideation: Denies Homicidal Ideation: Denies Insight/Judgement: Poor Sleep: Poorly, Difficulty falling asleep Appetite: Good Muscle strength/Tone: Normal Gait/Station: Normal Psychiatric Findings - Problem List ([place]iff[place] 1, 2,3) (1) Opioid dependence with withdrawal Status: Acute (2) Cannabis dependence Status: Acute (3) Cocaine dependence, uncomplicated Status: Acute (4) Nicotine dependence Status: Acute Qualifiers: Nicotine product type: cigarettes Substance use status: in withdrawal Qualified Code(s): F17.213 - Nicotine dependence, cigarettes, with withdrawal (5) ADHD (attention deficit hyperactivity disorder) Status: Chronic Comment: As per history and existing records. (6) Bipolar disorder Status: Chronic (7) Substance induced mood disorder Status: Acute (8) Insomnia Status: Acute - Initial Treatment Plan Initial Treatment Plan: Psychoeducation.Detoxification.Sleep hygiene.Seroquel 200 mg po hs (reduced in view of extended period of non-adherence).Side effects/ benefits discussed with the patient.Mr Granger agrees to this careplan.Gradual titration to 400 mg/hs if clinically indicated.Observation.
[2018-01-27 14:49] LABS: HEMATOCRIT 48.8 % (35.4-49); HEMOGLOBIN 16.2 GM/dL (11.7-16.9); MCH 28.4 pg (25.7-33.7); MCHC 33.1 g/dl (32.0-35.9); MEAN CELL VOLUME 85.9 fl (80-96); MEAN PLT VOLUME 8.5 fl (7.5-11.1); PLATELET COUNT 285 K/MM3 (134-434); RBC 5.68 M/mm3 (4.00-5.60); RDW 14.7 % (11.9-15.9)
[2018-01-27] MEDS ORDERED: PNEUMOCOCCAL 23 VACCINE 0.5 ML VIAL IM ONE (15:00)
[2018-01-27 15:21] LABS: CHLORIDE 99 mmol/L (98-107); SODIUM 137 mmol/L (136-145)
[2018-01-27 15:26] LABS: ALBUMIN 4.4 g/dl (3.4-5.0); ANION GAP 4 (8-16); BLOOD UREA NITROGEN 9 mg/dL (7-18); CALCIUM 10.2 mg/dL (8.5-10.1); CO2 34 mmol/L (21-32)
[2018-01-27 15:31] LABS: ALK PHOS 93 U/L (45-117); BILIRUBIN,TOTAL 0.2 mg/dL (0.2-1.0); SGOT/AST 41 U/L (15-37); SGPT/ALT 74 U/L (12-78); TOT PROT 8.5 g/dl (6.4-8.2)
[2018-01-27 15:32] LABS: GLUCOSE,RANDOM 46 mg/dL (74-106)
--- NOTE | 2018-01-27 15:41 | PN ---
[facility] Progress Note Note: RECEIVED CALL FROM NURSE ARIS OF BS 46 MG/DL FROM EARLIER BLOOD DRAWN FOR CMP ON THIS PATIENT. Laboratory Tests 01/26/18 01/27/18 01/27/18 18:04 13:15 13:15 WBC 7.0 RBC 5.68 H Hgb 16.2 Hct 48.8 D MCV 85.9 MCH 28.4 MCHC 33.1 RDW 14.7 Plt Count 285 MPV 8.5 Sodium 137 Potassium 5.0 Chloride 99 Carbon Dioxide 34 H D Anion Gap 4 L BUN 9 Creatinine 1.0 Creat Clearance w eGFR > 60 Random Glucose 46 L* D Calcium 10.2 H Total Bilirubin 0.2 AST 41 H D ALT 74 D Alkaline Phosphatase 93 Total Protein 8.5 H Albumin 4.4 Urine Color Colorless Urine Appearance Clear Urine pH 8.0 D Ur Specific [place] 1.004 Urine Protein Negative Urine Glucose (UA) Negative Urine Ketones Negative Urine Blood Negative Urine Nitrite Negative Urine Bilirubin Negative Urine Urobilinogen Negative Ur Leukocyte Esterase Negative PLAN:BGM X1 NOW RESULTED ON 113 MG/DL- IMPROVED BS. PT ON ENSURE TID AND EATING MEALS MONITOR AND ENCOURAGE PO FOOD INTAKE.
[2018-01-27] MEDS: NICOTINE POLACRILEX 2 MG GUM BUC PRN (17:51)
[2018-01-27] MEDS: THIAMINE HCL 100 MG TABLET (FP) PO SCH (21:53)
[2018-01-27] MEDS: QUEtiapine FUMARATE 200 MG TABLET PO SCH (21:54)
[2018-01-27] MEDS: IBUPROFEN 400 MG TABLET (FP) PO PRN (21:55)
[2018-01-28] MEDS ORDERED: METHADONE HCL 5 MG TABLET (FOR DETOX USE ONLY) PO ONE ×2 (10:00)
[2018-01-28] MEDS: PRENATAL VITAMINS W/ FOLIC ACID TABLET (FP) PO SCH (10:29)
[2018-01-28] MEDS: diazePAM 5 MG TABLET PO PRN ×2 (10:30→19:54)
[2018-01-28] MEDS: NICOTINE 14 MG/24 HOURS TOPICAL PATCH TD SCH (10:30)
--- NOTE | 2018-01-28 16:44 | PN ---
[facility] COWS - Scale Resting Pulse: 1= [place] 81-100 Sweatin= Chills/Flushing Restless Observation: 1= Difficult to Sit Still Pupil Size: 0= Normal to Room Light Bone or Joint Aches: 1= Mild Discomfort Runny Nose/ Eye Tearin= Runny Nose/Eyes GI Upset > 30mins: 1= Stomach Cramp Tremor Observation of Outstretched Hands: 1= Tremor [place], Not Seen Yawning Observation: 2= >3x During Session Anxiety or Irritability: 2=Irritable/Anxious Goose Flesh Skin: 0=Smooth Skin COWS Score: 12 BHS Progress Note (SOAP) Subjective: interrupted sleep, weakness, chills, sweats Objective: 01/28/18 16:41 Vital Signs Temperature 98.7 F 01/28/18 13:29 Pulse Rate 85 01/28/18 13:29 Respiratory Rate 18 01/28/18 13:29 Blood Pressure 101/65 01/28/18 13:29 O2 Sat by Pulse Oximetry (%) Laboratory Last Values WBC 7.0 K/mm3 (4.0-10.0) 01/27/18 13:15 RBC 5.68 M/mm3 (4.00-5.60) H 01/27/18 13:15 Hgb 16.2 GM/dL (11.7-16.9) 01/27/18 13:15 Hct 48.8 % (35.4-49) D 01/27/18 13:15 MCV 85.9 fl (80-96) 01/27/18 13:15 MCH 28.4 pg (25.7-33.7) 01/27/18 13:15 MCHC 33.1 g/dl (32.0-35.9) 01/27/18 13:15 RDW 14.7 % (11.9-15.9) 01/27/18 13:15 Plt Count 285 K/MM3 (134-434) 01/27/18 13:15 MPV 8.5 fl (7.5-11.1) 01/27/18 13:15 Sodium 137 mmol/L (136-145) 01/27/18 13:15 Potassium 5.0 mmol/L (3.5-5.1) 01/27/18 13:15 Chloride 99 mmol/L (98-107) 01/27/18 13:15 Carbon Dioxide 34 mmol/L (21-32) H D 01/27/18 13:15 Anion Gap 4 (8-16) L 01/27/18 13:15 BUN 9 mg/dL (7-18) 01/27/18 13:15 Creatinine 1.0 mg/dL (0.7-1.3) 01/27/18 13:15 Creat Clearance w eGFR > 60 (>60) 01/27/18 13:15 POC Glucometer 113 UNITS (80-120) 01/27/18 15:37 Random Glucose 46 mg/dL (74-106) L* D 01/27/18 13:15 Calcium 10.2 mg/dL (8.5-10.1) H 01/27/18 13:15 Total Bilirubin 0.2 mg/dL (0.2-1.0) 01/27/18 13:15 AST 41 U/L (15-37) H D 01/27/18 13:15 ALT 74 U/L (12-78) D 01/27/18 13:15 Alkaline Phosphatase 93 U/L (45-117) 01/27/18 13:15 Total Protein 8.5 g/dl (6.4-8.2) H 01/27/18 13:15 Albumin 4.4 g/dl (3.4-5.0) 01/27/18 13:15 Urine Color Colorless 01/26/18 18:04 Urine Appearance Clear 01/26/18 18:04 Urine pH 8.0 (5.0-8.0) D 01/26/18 18:04 Ur Specific [place] 1.004 (1.001-1.035) 01/26/18 18:04 Urine Protein Negative (NEGATIVE) 01/26/18 18:04 Urine Glucose (UA) Negative (NEGATIVE) 01/26/18 18:04 Urine Ketones Negative (NEGATIVE) 01/26/18 18:04 Urine Blood Negative (NEGATIVE) 01/26/18 18:04 Urine Nitrite Negative (NEGATIVE) 01/26/18 18:04 Urine Bilirubin Negative (<2.0 mg/dL) 01/26/18 18:04 Urine Urobilinogen Negative mg/dL (0.2-1.0) 01/26/18 18:04 Ur Leukocyte Esterase Negative (NEGATIVE) 01/26/18 18:04 RPR Titer Nonreactive (NONREACTIVE) 01/27/18 13:15 Aox3 no distress no adventitious breath sounds full ROM ambulating in the unit Assessment: 01/28/18 16:43 withdrawal symptoms Plan: increase fluids continue detox continue to monitor
[2018-01-28] MEDS: IBUPROFEN 400 MG TABLET (FP) PO PRN (19:52)
[2018-01-28] MEDS: THIAMINE HCL 100 MG TABLET (FP) PO SCH (22:22)
[2018-01-28] MEDS: QUEtiapine FUMARATE 200 MG TABLET PO SCH (22:22)
[2018-01-28] MEDS: NICOTINE POLACRILEX 2 MG GUM BUC PRN (22:24)
[2018-01-28] MEDS: ACETAMINOPHEN 325 MG TABLET (FP) PO PRN (22:26)
[2018-01-29] MEDS: IBUPROFEN 400 MG TABLET (FP) PO PRN ×3 (09:44→22:24)
[2018-01-29] MEDS: PRENATAL VITAMINS W/ FOLIC ACID TABLET (FP) PO SCH (09:44)
[2018-01-29] MEDS: NICOTINE 14 MG/24 HOURS TOPICAL PATCH TD SCH (09:49)
[2018-01-29] MEDS ORDERED: METHADONE HCL 5 MG TABLET (FOR DETOX USE ONLY) PO ONE ×2 (10:00)
[2018-01-29] MEDS: NICOTINE 21 MG/24 HOURS TOPICAL PATCH TD SCH (11:43)
[2018-01-29] MEDS ORDERED: hydrOXYzine PAMOATE 50 MG CAPSULE (FP) PO PRN (13:49)
--- NOTE | 2018-01-29 13:52 | PN ---
B[facility] Progress Note (SOAP) Subjective: pt states he is feeling anxious- wants extra meds, wants a soft cookie Objective: 01/29/18 13:51 Laboratory Tests 01/26/18 01/27/18 01/27/18 18:04 13:15 13:15 WBC 7.0 RBC 5.68 H Hgb 16.2 Hct 48.8 D MCV 85.9 MCH 28.4 MCHC 33.1 RDW 14.7 Plt Count 285 MPV 8.5 Sodium 137 Potassium 5.0 Chloride 99 Carbon Dioxide 34 H D Anion Gap 4 L BUN 9 Creatinine 1.0 Creat Clearance w eGFR > 60 POC Glucometer Random Glucose 46 L* D Calcium 10.2 H Total Bilirubin 0.2 AST 41 H D ALT 74 D Alkaline Phosphatase 93 Total Protein 8.5 H Albumin 4.4 Urine Color Colorless Urine Appearance Clear Urine pH 8.0 D Ur Specific [place] 1.004 Urine Protein Negative Urine Glucose (UA) Negative Urine Ketones Negative Urine Blood Negative Urine Nitrite Negative Urine Bilirubin Negative Urine Urobilinogen Negative Ur Leukocyte Esterase Negative RPR Titer 01/27/18 01/27/18 13:15 15:37 WBC RBC Hgb Hct MCV MCH MCHC RDW Plt Count MPV Sodium Potassium Chloride Carbon Dioxide Anion Gap BUN Creatinine Creat Clearance w eGFR POC Glucometer 113 Random Glucose Calcium Total Bilirubin AST ALT Alkaline Phosphatase Total Protein Albumin Urine Color Urine Appearance Urine pH Ur Specific [place] Urine Protein Urine Glucose (UA) Urine Ketones Urine Blood Urine Nitrite Urine Bilirubin Urine Urobilinogen Ur Leukocyte Esterase RPR Titer Nonreactive Vital Signs - 24 hr 01/28/18 01/28/18 01/29/18 18:41 22:04 06:48 Temperature 99 F 99.2 F 96.9 F L Pulse Rate 96 H 100 H 68 Respiratory 16 18 18 Rate Blood Pressure 110/71 124/82 89/55 01/29/18 09:41 Temperature 97.1 F L Pulse Rate 79 Respiratory 18 Rate Blood Pressure 94/61 pt walking around-pacing anxious Assessment: 01/29/18 13:52 withdrawal/anxiety Plan: continue detox protocol vistaril 50mg q 4 prn added for anxiety
[2018-01-29] MEDS: ACETAMINOPHEN 325 MG TABLET (FP) PO PRN (16:26)
[2018-01-29] MEDS: NICOTINE POLACRILEX 2 MG GUM BUC PRN (21:09)
[2018-01-29] MEDS: THIAMINE HCL 100 MG TABLET (FP) PO SCH (21:26)
[2018-01-29] MEDS: QUEtiapine FUMARATE 200 MG TABLET PO SCH (21:26)
[2018-01-29] MEDS: MELATONIN 5 MG TABLETS PO PRN (22:25)
[2018-01-30] MEDS ORDERED: METHADONE HCL 10 MG TABLET (FOR DETOX USE ONLY) PO ONE (10:00)
[2018-01-30] MEDS: PRENATAL VITAMINS W/ FOLIC ACID TABLET (FP) PO SCH (10:28)
[2018-01-30] MEDS: IBUPROFEN 400 MG TABLET (FP) PO PRN (10:30)
[2018-01-30] MEDS: NICOTINE 21 MG/24 HOURS TOPICAL PATCH TD SCH (10:31)
--- NOTE | 2018-01-30 18:55 | PN ---
B[facility] Progress Note (SOAP) Subjective: Interrupted Sleep, Anxious. Objective: PATIENT A & O X 3, OBSERVED AMBULATING ON UNIT. NO ACUTE DISTRESS. 01/30/18 18:55 Vital Signs Temperature 98.2 F 01/30/18 09:57 Pulse Rate 96 H 01/30/18 09:57 Respiratory Rate 18 01/30/18 09:57 Blood Pressure 116/75 01/30/18 09:57 O2 Sat by Pulse Oximetry (%) Laboratory Tests 01/26/18 01/27/18 01/27/18 18:04 13:15 13:15 WBC 7.0 RBC 5.68 H Hgb 16.2 Hct 48.8 D MCV 85.9 MCH 28.4 MCHC 33.1 RDW 14.7 Plt Count 285 MPV 8.5 Sodium 137 Potassium 5.0 Chloride 99 Carbon Dioxide 34 H D Anion Gap 4 L BUN 9 Creatinine 1.0 Creat Clearance w eGFR > 60 POC Glucometer Random Glucose 46 L* D Calcium 10.2 H Total Bilirubin 0.2 AST 41 H D ALT 74 D Alkaline Phosphatase 93 Total Protein 8.5 H Albumin 4.4 Urine Color Colorless Urine Appearance Clear Urine pH 8.0 D Ur Specific [place] 1.004 Urine Protein Negative Urine Glucose (UA) Negative Urine Ketones Negative Urine Blood Negative Urine Nitrite Negative Urine Bilirubin Negative Urine Urobilinogen Negative Ur Leukocyte Esterase Negative RPR Titer 01/27/18 01/27/18 13:15 15:37 WBC RBC Hgb Hct MCV MCH MCHC RDW Plt Count MPV Sodium Potassium Chloride Carbon Dioxide Anion Gap BUN Creatinine Creat Clearance w eGFR POC Glucometer 113 Random Glucose Calcium Total Bilirubin AST ALT Alkaline Phosphatase Total Protein Albumin Urine Color Urine Appearance Urine pH Ur Specific [place] Urine Protein Urine Glucose (UA) Urine Ketones Urine Blood Urine Nitrite Urine Bilirubin Urine Urobilinogen Ur Leukocyte Esterase RPR Titer Nonreactive LABS NOTED. Assessment: 01/30/18 18:56 WITHDRAWAL SYMPTOMS. Plan: CONTINUE DETOX. PATIENT SCHEDULED FOR D/C TOMORROW.
[2018-01-30] MEDS: QUEtiapine FUMARATE 200 MG TABLET PO SCH (22:39)
[2018-01-30] MEDS: THIAMINE HCL 100 MG TABLET (FP) PO SCH (22:39)
[2018-01-30] MEDS: MELATONIN 5 MG TABLETS PO PRN (22:43)
[2018-01-31] MEDS ORDERED: METHADONE HCL 5 MG TABLET (FOR DETOX USE ONLY) PO ONE ×2 (06:00)
[2018-01-31 06:21] VITALS: BP 117/69; PULSE 87; TEMP 99
--- NOTE | 2018-01-31 11:33 | DS ---
[facility] Detox Discharge Summary Admission Date: 01/26/18 Discharge Date: 01/31/18 - History Present History: Cocaine Dependence, Opioid Dependence Pertinent Past History: Hepatitis C - Physical Exam Results Vital Signs: Vital Signs Temperature 99 F 01/31/18 06:20 Pulse Rate 87 01/31/18 06:20 Respiratory Rate 16 01/31/18 06:20 Blood Pressure 117/69 01/31/18 06:20 O2 Sat by Pulse Oximetry (%) Pertinent Admission Physical Exam Findings: Withdrawal symptoms Laboratory Tests 01/26/18 01/27/18 01/27/18 18:04 13:15 13:15 WBC 7.0 RBC 5.68 H Hgb 16.2 Hct 48.8 D MCV 85.9 MCH 28.4 MCHC 33.1 RDW 14.7 Plt Count 285 MPV 8.5 Sodium 137 Potassium 5.0 Chloride 99 Carbon Dioxide 34 H D Anion Gap 4 L BUN 9 Creatinine 1.0 Creat Clearance w eGFR > 60 POC Glucometer Random Glucose 46 L* D Calcium 10.2 H Total Bilirubin 0.2 AST 41 H D ALT 74 D Alkaline Phosphatase 93 Total Protein 8.5 H Albumin 4.4 Urine Color Colorless Urine Appearance Clear Urine pH 8.0 D Ur Specific [place] 1.004 Urine Protein Negative Urine Glucose (UA) Negative Urine Ketones Negative Urine Blood Negative Urine Nitrite Negative Urine Bilirubin Negative Urine Urobilinogen Negative Ur Leukocyte Esterase Negative RPR Titer 01/27/18 01/27/18 13:15 15:37 WBC RBC Hgb Hct MCV MCH MCHC RDW Plt Count MPV Sodium Potassium Chloride Carbon Dioxide Anion Gap BUN Creatinine Creat Clearance w eGFR POC Glucometer 113 Random Glucose Calcium Total Bilirubin AST ALT Alkaline Phosphatase Total Protein Albumin Urine Color Urine Appearance Urine pH Ur Specific [place] Urine Protein Urine Glucose (UA) Urine Ketones Urine Blood Urine Nitrite Urine Bilirubin Urine Urobilinogen Ur Leukocyte Esterase RPR Titer Nonreactive Labs reviewed - Treatment Hospital Course: Detox Protocol Followed, Detoxed Safely, Responded well, Discharged Condition Good - Medication Discharge Medications: Ambulatory Orders Quetiapine Fumarate [Seroquel -] 400 mg PO HS 01/25/18 Quetiapine Fumarate [Seroquel -] 200 mg PO HS #30 tab 01/30/18 - Diagnosis (1) Anxiety Status: Acute (2) Cocaine dependence, uncomplicated Status: Acute (3) Depression Status: Acute Qualifiers: Depression Type: unspecified Qualified Code(s): F32.9 - Major depressive disorder, single episode, unspecified (4) Hep C w/o coma, chronic Status: Chronic (5) Insomnia Status: Acute (6) Nicotine dependence Status: Chronic Qualifiers: Nicotine product type: cigarettes Substance use status: in withdrawal Qualified Code(s): F17.213 - Nicotine dependence, cigarettes, with withdrawal (7) Opioid dependence with withdrawal Status: Acute - AMA Did Patient Leave Against Medical Advice: No (F/U with PCP within 2 weeks)
== END 2018-01-31 08:52 | disposition home or self-care (01) | DRG 773 ==
LOC: YASAS 01:18 → Y3N 01:22
PROVIDERS: ADMIT Surgery; ATTEND Surgery
PROC: HZ2ZZZZ Detoxification Services for Substance Abuse Treatment (ICD-10-PCS; principal; 2018-01-26)
DX: F11.23 Opioid dependence with withdrawal (principal); F14.20 Cocaine dependence, uncomplicated; F12.20 Cannabis dependence, uncomplicated; F17.213 Nicotine dependence, cigarettes, with withdrawal; F41.9 Anxiety disorder, unspecified; F32.9 Major depressive disorder, single episode, unspecified; F90.9 Attention-deficit hyperactivity disorder, unspecified type; F19.24 Other psychoactive substance dependence with psychoactive substance-induced mood disorder; B18.2 Chronic viral hepatitis C; G47.00 Insomnia, unspecified; Z91.013 Allergy to seafood
CPT/HCPCS: 36415; 80053; 81003; 82962; 85027; 86593; 90732; G0009

== ENCOUNTER 2018-05-24 14:06 | Inpatient (IN) | payer OTHER ==
[2018-05-24 16:44] VITALS: BMI 22.1
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
[2018-05-24] MEDS ORDERED: MAGNESIUM CITRATE 300 ML BOTTLE PO PRN (18:48)
[2018-05-24] MEDS ORDERED: LOPERAMIDE HCL 2 MG CAPSULE PO PRN (18:48)
[2018-05-24] MEDS ORDERED: P-EPHED 60MG/TRIPROLIDI 2.5MG TABLET PO PRN (18:48)
[2018-05-24] MEDS ORDERED: NICOTINE POLACRILEX 2 MG GUM BC PRN (18:48)
[2018-05-24] MEDS ORDERED: ACETAMINOPHEN 325 MG TABLET (FP) PO PRN (18:48)
[2018-05-24] MEDS ORDERED: MAG HYDROX/AL HYDROX/SIMETH 30 ML UNIT-DOSE CUP PO PRN (18:48)
[2018-05-24] MEDS ORDERED: guaiFENesin/D-METHORPHAN HB 10 ML UNIT-DOSE CUPS PO PRN (18:48)
[2018-05-24] MEDS ORDERED: MENTHOL/PHENOL 1 EACH UD MM PRN (18:48)
[2018-05-24] MEDS ORDERED: MAGNESIUM HYDROX 2400MG/30ML ORAL SUSPENSION 30 ML CUP PO PRN (18:48)
[2018-05-24] MEDS ORDERED: IBUPROFEN 400 MG TABLET (FP) PO PRN (18:48)
[2018-05-24] MEDS ORDERED: METHADONE HCL 10 MG TABLET (FOR DETOX USE ONLY) PO ONE ×2 (20:00→23:00)
[2018-05-24] MEDS: diazePAM 5 MG TABLET PO PRN (21:30)
[2018-05-24] MEDS ORDERED: MELATONIN 5 MG TABLETS PO PRN (22:00)
[2018-05-24] MEDS: THIAMINE HCL 100 MG TABLET (FP) PO SCH (22:26)
[2018-05-25] MEDS ORDERED: METHADONE HCL 10 MG TABLET (FOR DETOX USE ONLY) PO ONE (10:00)
[2018-05-25] MEDS: PRENATAL VITAMINS W/ FOLIC ACID TABLET (FP) PO SCH (10:04)
[2018-05-25] MEDS: NICOTINE 21 MG/24 HOURS TOPICAL PATCH TD SCH (10:04)
[2018-05-25] MEDS: diazePAM 5 MG TABLET PO PRN ×3 (10:07→21:00)
[2018-05-25 10:23] LABS: HEMATOCRIT 42.6 % (35.4-49); HEMOGLOBIN 13.5 GM/dL (11.7-16.9); MCH 27.4 pg (25.7-33.7); MCHC 31.8 g/dl (32.0-35.9); MEAN CELL VOLUME 86.4 fl (80-96); MEAN PLT VOLUME 8.3 fl (7.5-11.1); PLATELET COUNT 226 K/MM3 (134-434); RBC 4.94 M/mm3 (4.00-5.60); WHITE BLOOD COUNT 7.3 K/mm3 (4.0-10.0)
[2018-05-25 10:40] LABS: ALBUMIN 3.4 g/dl (3.4-5.0); ALK PHOS 90 U/L (45-117); ANION GAP 6 MMOL/L (8-16); BILIRUBIN,TOTAL 0.2 mg/dL (0.2-1); BLOOD UREA NITROGEN 15 mg/dL (7-18); CALCIUM 8.4 mg/dL (8.5-10.1); CHLORIDE 103 mmol/L (98-107); CO2 30 mmol/L (21-32); CREATININE 0.7 mg/dL (0.55-1.3); GLUCOSE,RANDOM 93 mg/dL (74-106); POTASSIUM 4.1 mmol/L (3.5-5.1); SGOT/AST 28 U/L (15-37); SGPT/ALT 81 U/L (13-61); SODIUM 139 mmol/L (136-145); TOT PROT 6.4 g/dl (6.4-8.2)
--- NOTE | 2018-05-25 10:40 | PN ---
BHS COWS - Scale Resting Pulse: 0= [place] 80 or Below Sweatin=Flushed/Facial Moisture Restless Observation: 1= Difficult to Sit Still Pupil Size: 0= Normal to Room Light Bone or Joint Aches: 1= Mild Discomfort Runny Nose/ Eye Tearin= Nasal Congestion GI Upset > 30mins: 0= None Tremor Observation of Outstretched Hands: 2= Slight Tremor Visible Yawning Observation: 2= >3x During Session Anxiety or Irritability: 2=Irritable/Anxious Goose Flesh Skin: 0=Smooth Skin COWS Score: 11 BHS Progress Note (SOAP) Subjective: nasal congestion interrupted sleep agitation anxiety body aches irritable Objective: 05/25/18 10:39 Vital Signs Temperature 97.9 F 05/25/18 09:23 Pulse Rate 78 05/25/18 09:23 Respiratory Rate 18 05/25/18 09:23 Blood Pressure 99/53 L 05/25/18 09:23 O2 Sat by Pulse Oximetry (%) Laboratory Tests 05/25/18 07:00 WBC 7.3 RBC 4.94 Hgb 13.5 Hct 42.6 MCV 86.4 MCH 27.4 MCHC 31.8 L RDW 15.0 Plt Count 226 D MPV 8.3 rest of labs pending aaox3 ambulating no acute distress Assessment: 05/25/18 10:40 withdrawal sx Plan: continue detox increase fluids
[2018-05-25 11:00] LABS: URINE APPEARANCE CLEAR; URINE BILIRUBIN NEGATIVE (<2.0 mg/dL); URINE COLOR LTYELLOW; URINE GLUCOSE (UA) NEGATIVE (NEGATIVE); URINE KETONE NEGATIVE (NEGATIVE); URINE LEUK ESTERASE NEGATIVE (NEGATIVE); URINE NITRITE NEGATIVE (NEGATIVE); URINE PROTEIN NEGATIVE (NEGATIVE); URINE UROBILINOGEN NEGATIVE mg/dL (0.2-1.0)
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
[2018-05-25] MEDS: THIAMINE HCL 100 MG TABLET (FP) PO SCH (22:20)
[2018-05-25] MEDS: QUEtiapine FUMARATE 100 MG TABLET (FP) PO SCH (22:20)
[2018-05-26] MEDS: diazePAM 5 MG TABLET PO PRN ×4 (08:39→22:10)
[2018-05-26] MEDS ORDERED: METHADONE HCL 5 MG TABLET (FOR DETOX USE ONLY) PO ONE (10:00)
[2018-05-26] MEDS: NICOTINE 21 MG/24 HOURS TOPICAL PATCH TD SCH (10:31)
[2018-05-26] MEDS: PRENATAL VITAMINS W/ FOLIC ACID TABLET (FP) PO SCH (10:31)
[2018-05-26] MEDS ORDERED: LIDOCAINE VISCOUS 2% ORAL/TOP 20 ML UNIT-DOSE CUP MM PRN (10:41)
[2018-05-26] MEDS ORDERED: CHLORHEXIDINE GLUCONATE 0.12% 15ML CUP MM SCH (10:45)
[2018-05-26] MEDS ORDERED: METHADONE HCL 10 MG TABLET (FOR DETOX USE ONLY) PO ONE (10:47)
--- NOTE | 2018-05-26 11:03 | PN ---
BHS COWS - Scale Resting Pulse: 0= [place] 80 or Below Sweatin= Chills/Flushing Restless Observation: 1= Difficult to Sit Still Pupil Size: 1= Pupils >than Normal Bone or Joint Aches: 1= Mild Discomfort Runny Nose/ Eye Tearin= Nasal Congestion GI Upset > 30mins: 1= Stomach Cramp Tremor Observation of Outstretched Hands: 1= Tremor [place], Not Seen Yawning Observation: 2= >3x During Session Anxiety or Irritability: 1=Feels Anxious/Irritable Goose Flesh Skin: 0=Smooth Skin COWS Score: 10 BHS Progress Note (SOAP) Subjective: tooth ache muscle cramp reported methadone 15 mg "too strong" Objective: 05/26/18 11:09 Vital Signs Temperature 98.4 F 05/26/18 09:13 Pulse Rate 80 05/26/18 09:13 Respiratory Rate 18 05/26/18 09:13 Blood Pressure 111/73 05/26/18 09:13 O2 Sat by Pulse Oximetry (%) Laboratory Last Values WBC 7.3 K/mm3 (4.0-10.0) 05/25/18 07:00 RBC 4.94 M/mm3 (4.00-5.60) 05/25/18 07:00 Hgb 13.5 GM/dL (11.7-16.9) 05/25/18 07:00 Hct 42.6 % (35.4-49) 05/25/18 07:00 MCV 86.4 fl (80-96) 05/25/18 07:00 MCH 27.4 pg (25.7-33.7) 05/25/18 07:00 MCHC 31.8 g/dl (32.0-35.9) L 05/25/18 07:00 RDW 15.0 % (11.9-15.9) 05/25/18 07:00 Plt Count 226 K/MM3 (134-434) D 05/25/18 07:00 MPV 8.3 fl (7.5-11.1) 05/25/18 07:00 Sodium 139 mmol/L (136-145) 05/25/18 07:00 Potassium 4.1 mmol/L (3.5-5.1) 05/25/18 07:00 Chloride 103 mmol/L (98-107) 05/25/18 07:00 Carbon Dioxide 30 mmol/L (21-32) 05/25/18 07:00 Anion Gap 6 MMOL/L (8-16) L 05/25/18 07:00 BUN 15 mg/dL (7-18) 05/25/18 07:00 Creatinine 0.7 mg/dL (0.55-1.3) 05/25/18 07:00 Creat Clearance w eGFR > 60 (>60) 05/25/18 07:00 Random Glucose 93 mg/dL (74-106) 05/25/18 07:00 Calcium 8.4 mg/dL (8.5-10.1) L 05/25/18 07:00 Total Bilirubin 0.2 mg/dL (0.2-1) 05/25/18 07:00 AST 28 U/L (15-37) 05/25/18 07:00 ALT 81 U/L (13-61) H 05/25/18 07:00 Alkaline Phosphatase 90 U/L (45-117) 05/25/18 07:00 Total Protein 6.4 g/dl (6.4-8.2) 05/25/18 07:00 Albumin 3.4 g/dl (3.4-5.0) 05/25/18 07:00 Urine Color Ltyellow 05/25/18 07:00 Urine Appearance Clear 05/25/18 07:00 Urine pH 6.0 (5.0-8.0) D 05/25/18 07:00 Ur Specific [place] 1.021 (1.010-1.035) 05/25/18 07:00 Urine Protein Negative (NEGATIVE) 05/25/18 07:00 Urine Glucose (UA) Negative (NEGATIVE) 05/25/18 07:00 Urine Ketones Negative (NEGATIVE) 05/25/18 07:00 Urine Blood Negative (NEGATIVE) 05/25/18 07:00 Urine Nitrite Negative (NEGATIVE) 05/25/18 07:00 Urine Bilirubin Negative (<2.0 mg/dL) 05/25/18 07:00 Urine Urobilinogen Negative mg/dL (0.2-1.0) 05/25/18 07:00 Ur Leukocyte Esterase Negative (NEGATIVE) 05/25/18 07:00 RPR Titer Nonreactive (NONREACTIVE) 05/25/18 07:00 HIV 1&2 Antibody Screen Negative 05/25/18 07:00 HIV P24 Antigen Negative 05/25/18 07:00 lab noted Assessment: 05/26/18 11:09 withdrawal sx 05/26/18 11:10 poor dentition Plan: continue detox tooth ache amoxicillin lidocaine MM
[2018-05-26] MEDS: AMOXICILLIN 250 MG CAPSULE PO SCH ×2 (13:53→22:10)
[2018-05-26] MEDS: CHLORHEXIDINE GLUCONATE 118 ML MOUTHWASH MM SCH ×2 (15:50→22:10)
[2018-05-26] MEDS: QUEtiapine FUMARATE 100 MG TABLET (FP) PO SCH (22:10)
[2018-05-26] MEDS: THIAMINE HCL 100 MG TABLET (FP) PO SCH (22:10)
[2018-05-27] MEDS: AMOXICILLIN 250 MG CAPSULE PO SCH ×3 (06:54→21:35)
[2018-05-27] MEDS ORDERED: METHADONE HCL 10 MG TABLET (FOR DETOX USE ONLY) PO ONE (10:00)
[2018-05-27] MEDS ORDERED: METHADONE HCL 5 MG TABLET (FOR DETOX USE ONLY) PO ONE (10:00)
[2018-05-27] MEDS: NICOTINE 21 MG/24 HOURS TOPICAL PATCH TD SCH (11:10)
[2018-05-27] MEDS: CHLORHEXIDINE GLUCONATE 118 ML MOUTHWASH MM SCH ×2 (11:10→21:35)
[2018-05-27] MEDS: PRENATAL VITAMINS W/ FOLIC ACID TABLET (FP) PO SCH (11:11)
[2018-05-27] MEDS: diazePAM 5 MG TABLET PO PRN ×2 (11:14→21:34)
--- NOTE | 2018-05-27 11:24 | PN ---
BHS Progress Note (SOAP) Subjective: body aches joints pain reported feeling anxiousness and fatigue Objective: 05/27/18 11:22 Vital Signs Temperature 98.1 F 05/27/18 09:55 Pulse Rate 109 H 05/27/18 09:55 Respiratory Rate 17 05/27/18 09:55 Blood Pressure 129/56 L 05/27/18 09:55 O2 Sat by Pulse Oximetry (%) Laboratory Last Values WBC 7.3 K/mm3 (4.0-10.0) 05/25/18 07:00 RBC 4.94 M/mm3 (4.00-5.60) 05/25/18 07:00 Hgb 13.5 GM/dL (11.7-16.9) 05/25/18 07:00 Hct 42.6 % (35.4-49) 05/25/18 07:00 MCV 86.4 fl (80-96) 05/25/18 07:00 MCH 27.4 pg (25.7-33.7) 05/25/18 07:00 MCHC 31.8 g/dl (32.0-35.9) L 05/25/18 07:00 RDW 15.0 % (11.9-15.9) 05/25/18 07:00 Plt Count 226 K/MM3 (134-434) D 05/25/18 07:00 MPV 8.3 fl (7.5-11.1) 05/25/18 07:00 Sodium 139 mmol/L (136-145) 05/25/18 07:00 Potassium 4.1 mmol/L (3.5-5.1) 05/25/18 07:00 Chloride 103 mmol/L (98-107) 05/25/18 07:00 Carbon Dioxide 30 mmol/L (21-32) 05/25/18 07:00 Anion Gap 6 MMOL/L (8-16) L 05/25/18 07:00 BUN 15 mg/dL (7-18) 05/25/18 07:00 Creatinine 0.7 mg/dL (0.55-1.3) 05/25/18 07:00 Creat Clearance w eGFR > 60 (>60) 05/25/18 07:00 Random Glucose 93 mg/dL (74-106) 05/25/18 07:00 Calcium 8.4 mg/dL (8.5-10.1) L 05/25/18 07:00 Total Bilirubin 0.2 mg/dL (0.2-1) 05/25/18 07:00 AST 28 U/L (15-37) 05/25/18 07:00 ALT 81 U/L (13-61) H 05/25/18 07:00 Alkaline Phosphatase 90 U/L (45-117) 05/25/18 07:00 Total Protein 6.4 g/dl (6.4-8.2) 05/25/18 07:00 Albumin 3.4 g/dl (3.4-5.0) 05/25/18 07:00 Urine Color Ltyellow 05/25/18 07:00 Urine Appearance Clear 05/25/18 07:00 Urine pH 6.0 (5.0-8.0) D 05/25/18 07:00 Ur Specific [place] 1.021 (1.010-1.035) 05/25/18 07:00 Urine Protein Negative (NEGATIVE) 05/25/18 07:00 Urine Glucose (UA) Negative (NEGATIVE) 05/25/18 07:00 Urine Ketones Negative (NEGATIVE) 05/25/18 07:00 Urine Blood Negative (NEGATIVE) 05/25/18 07:00 Urine Nitrite Negative (NEGATIVE) 05/25/18 07:00 Urine Bilirubin Negative (<2.0 mg/dL) 05/25/18 07:00 Urine Urobilinogen Negative mg/dL (0.2-1.0) 05/25/18 07:00 Ur Leukocyte Esterase Negative (NEGATIVE) 05/25/18 07:00 RPR Titer Nonreactive (NONREACTIVE) 05/25/18 07:00 HIV 1&2 Antibody Screen Negative 05/25/18 07:00 HIV P24 Antigen Negative 05/25/18 07:00 lab noted Assessment: 05/27/18 11:23 withdrawal sx Plan: continue detox
[2018-05-27] MEDS ORDERED: BENZOCAINE 20 % GEL TUBE MM PRN (13:43)
[2018-05-27] MEDS ORDERED: hydrOXYzine PAMOATE 25 MG CAPSULE (FP) PO ONE (14:26)
[2018-05-27] MEDS: QUEtiapine FUMARATE 100 MG TABLET (FP) PO SCH (21:34)
[2018-05-27] MEDS: THIAMINE HCL 100 MG TABLET (FP) PO SCH (21:34)
[2018-05-27 22:37] VITALS: BP 116/71; PULSE 97; TEMP 97.1
[2018-05-28] MEDS: AMOXICILLIN 250 MG CAPSULE PO SCH (06:12)
--- NOTE | 2018-05-28 08:39 | DS ---
[facility] Detox Discharge Summary Admission Date: 05/24/18 Discharge Date: 05/28/18 - History Present History: Cannabis Dependence, Cocaine Dependence, Opioid Dependence - Physical Exam Results Vital Signs: Vital Signs Temperature 97.1 F L 05/27/18 22:37 Pulse Rate 97 H 05/27/18 22:37 Respiratory Rate 18 05/28/18 03:30 Blood Pressure 116/71 05/27/18 22:37 O2 Sat by Pulse Oximetry (%) - Treatment Hospital Course: Detox Protocol Followed, Detoxed Safely, Responded well, Discharged Condition Good, Rehab Referral Accepted - Medication Discharge Medications: Ambulatory Orders Loratadine [Allergy] 10 mg PO DAILY 05/25/18 Quetiapine Fumarate [Seroquel -] 400 mg PO HS 05/25/18 Amoxicillin - [Amoxicillin 250mg Capsule -] 250 mg PO TID #14 capsule 05/27/18 - Diagnosis (1) Opioid dependence with withdrawal Current Visit: Yes Status: Chronic (2) Cannabis dependence Current Visit: Yes Status: Chronic (3) Cocaine dependence, uncomplicated Current Visit: Yes Status: Chronic (4) Hx of hepatitis C Current Visit: Yes Status: Chronic (5) Nicotine dependence Current Visit: Yes Status: Chronic Qualifiers: Nicotine product type: cigarettes Substance use status: uncomplicated Qualified Code(s): F17.210 - Nicotine dependence, cigarettes, uncomplicated (6) ADHD (attention deficit hyperactivity disorder) Current Visit: No Status: Suspected Qualifiers: Attention deficit-hyperactivity disorder type: unspecified Qualified Code(s ): F90.9 - Attention-deficit hyperactivity disorder, unspecified type (7) Bipolar disorder Current Visit: Yes Status: Chronic (8) Depression Current Visit: Yes Status: Suspected Qualifiers: Depression Type: unspecified Qualified Code(s): F32.9 - Major depressive disorder, single episode, unspecified (9) Substance induced mood disorder Current Visit: Yes Status: Acute (10) Anxiety Current Visit: No Status: Acute (11) Insomnia Current Visit: No Status: Acute - AMA Did Patient Leave Against Medical Advice: No (referred to outpatient)
[2018-05-28] MEDS ORDERED: METHADONE HCL 10 MG TABLET (FOR DETOX USE ONLY) PO ONE (10:00)
[2018-05-29] MEDS ORDERED: METHADONE HCL 5 MG TABLET (FOR DETOX USE ONLY) PO ONE (06:00)
== END 2018-05-28 08:58 | disposition home or self-care (01) | DRG 773 ==
LOC: YASAS 14:06 → Y6N 20:57
PROC: HZ2ZZZZ Detoxification Services for Substance Abuse Treatment (ICD-10-PCS; principal; 2018-05-24)
DX: F11.23 Opioid dependence with withdrawal (principal); F14.20 Cocaine dependence, uncomplicated; F12.20 Cannabis dependence, uncomplicated; F17.210 Nicotine dependence, cigarettes, uncomplicated; F90.9 Attention-deficit hyperactivity disorder, unspecified type; F31.9 Bipolar disorder, unspecified; F32.9 Major depressive disorder, single episode, unspecified; F19.24 Other psychoactive substance dependence with psychoactive substance-induced mood disorder; F41.9 Anxiety disorder, unspecified; B18.2 Chronic viral hepatitis C; G47.00 Insomnia, unspecified; K08.9 Disorder of teeth and supporting structures, unspecified; Z91.013 Allergy to seafood
CPT/HCPCS: 36415; 80053; 81003; 85027; 86593; 87389

== ENCOUNTER 2018-06-25 08:44 | Inpatient (IN) | payer OTHER ==
--- NOTE | 2018-06-25 10:02 | HP ---
COWS - Scale Resting Pulse: 0= [place] 80 or Below Sweatin= Chills/Flushing Restless Observation: 3= Extraneous Movement Pupil Size: 1= Pupils >than Normal Bone or Joint Aches: 2= Severe Diffuse Aches Runny Nose/ Eye Tearin= Runny Nose/Eyes GI Upset > 30mins: 2= Nausea/Diarrhea Tremor Observation: 2= Slight Tremor Visible Yawning Observation: 2= >3x During Session Anxiety or Irritability: 2=Irritable/Anxious Goose Flesh Skin: 0=Smooth Skin COWS Score: 17 CIWA Score Nausea/Vomitin Muscle Tremors: 2 Anxiety: 2 Agitation: 2 Paroxysmal Sweats: 1-Minimal Palms Moist Orientation: 0-Oriented Tacttile Disturbances: 1-Very Mild Itch/Numbness Auditory Disturbances: 1-Very Mild Visual Disturbances: 0-None Headache: 2-Mild CIWA-Ar Total Score: 13 - Admission Criteria OASAS Guidelines: Admission for Medically Managed Detox: Requires at least one of the followin. CIWA greater than 12 2. Seizures within the past 24 hours 3. Delirium tremens within the past 24 hours 4. Hallucinations within the past 24 hours 5. Acute intervention needed for co occurring medical disorder 6. Acute intervention needed for co occurring psychiatric disorder 7. Severe withdrawal that cannot be handled at a lower level of care (continued vomiting, continued diarrhea, abnormal vital signs) requiring intravenous medication and/or fluids 8. Patient presents the following: CIWA greater than 12 Admission Criteria Met: Admission criteria met Admission ROS [facility] Chief Complaint: i need help to stop using heroin and cocaine Allergies/Adverse Reactions: Allergies Allergy/AdvReac Type Severity Reaction Status Date / Time fish derived Allergy Severe Rash Verified 06/25/18 10:01 shellfish derived Allergy Severe Rash Verified 06/25/18 10:01 No Known Drug Allergies Allergy Verified 06/25/18 10:01 SEAFOOD Allergy Severe Rash Uncoded 06/25/18 10:01 History of Present Illness: this 23 years old male with heroin and cocaine dependence,seeking detox, withdrawal symptom,last detox [facility] 05/24/18 to 05/28/18 multiple admissions in detox weight loss nicotine dependence no significant period of sobriety Exam Limitations: No Limitations - Ebola screening Have you traveled outside of the country in the last 21 days: No Have you had contact with anyone from an Ebola affected area: No Have you been sick,other than usual withdrawal symptoms: Yes Do you have a fever: No - Review of Systems Constitutional: Chills, Diaphoresis, Loss of Appetite, Malaise, Night Sweats, Changes in sleep, Weakness, Unintentional Wgt. Loss EENT: reports: Tearing, Nose Congestion Respiratory: reports: No Symptoms reported Cardiac: reports: Palpitations GI: reports: Diarrhea, Nausea, Vomiting, Abdominal cramping : reports: No Symptoms Reported Musculoskeletal: reports: Back Pain, Muscle Pain Neuro: reports: Headache, Tremors Endocrine: reports: No Symptoms Reported Hematology: reports: No Symptoms Reported Psychiatric: reports: No Sypmtoms Reported, Judgement Intact, Mood/Affect Appropiate, Orientated x3, other (insomnia) Patient History - Patient Medical History Hx Anemia: No Hx Asthma: No Hx Chronic Obstructive Pulmonary Disease (COPD): No Hx Cancer: No Hx Cardiac Disorders: No Hx Congestive Heart Failure: No Hx Hypertension: No Hx Hypercholesterolemia: No Hx Pacemaker: No HX Cerebrovascular Accident: No Hx Seizures: No Hx Dementia: No Hx Diabetes: No Hx Gastrointestinal Disorders: No Hx Liver Disease: No Hx Genitourinary Disorders: No Hx Sexually Transmitted Disorders: No Hx Renal Disease (ESRD): No Hx Thyroid Disease: No Hx Human Immunodeficiency Virus (HIV): No Hx Hepatitis C: Yes (TX'ED) Hx Depression: Yes Hx Suicide Attempt: No Hx Bipolar Disorder: Yes (AND ADHD ) Hx Schizophrenia: No Other Medical History: no suicidal,no homicidal - Patient Surgical History Past Surgical History: Yes Hx Neurologic Surgery: No Hx Cataract Extraction: No Hx Cardiac Surgery: No Hx Lung Surgery: No Hx Breast Surgery: No Hx Breast Biopsy: No Hx Abdominal Surgery: No Hx Appendectomy: No Hx Cholecystectomy: No Hx Genitourinary Surgery: No Hx Section: No Hx Orthopedic Surgery: Yes (fx, right ankle in 2011) Anesthesia Reaction: No - PPD History Previous Implant?: Yes Documented Results: Negative w/proof Implanted On Prior R Admission?: Yes Date: 05/26/18 Results: 0 mm PPD to be Administered?: No - Smoking Cessation Smoking history: Current every day smoker Have you smoked in the past 12 months: Yes Aproximately how many cigarettes per day: 20 Cigars Per Day: 0 Hx Chewing Tobacco Use: No Initiated information on smoking cessation: Yes 'Breaking Loose' booklet given: 12/28/18 - Substance & Tx. History Hx Alcohol Use: No Hx Substance Use: Yes Substance Use Type: Cocaine, Heroin, Marijuana, Tranquilizers Hx Substance Use Treatment: Yes ([facility] 05/24/18 to 05/28/18) - Substances Abused Heroin Route: Inhalation Frequency: Daily Amount used: 10 bags Age of first use: 20 Date of Last Use: 06/25/18 Cocaine Route: Inhalation Frequency: Daily Amount used: 10 bags Age of first use: 20 Date of Last Use: 06/25/18 Marijuana/Hashish Route: Smoking Frequency: Daily Amount used: 3 joints Age of first use: 20 Date of Last Use: 06/25/18 Alprazolam (Xanax) Route: Oral Frequency: Daily Amount used: 20mg Age of first use: 20 Date of Last Use: 06/25/18 k2 Route: Smoking Frequency: Daily Amount used: 3 joints Age of first use: 20 Date of Last Use: 06/25/18 Family Disease History - Family Disease History Family History: Denies Admission Physical Exam [facility] - Vital Signs Vital Signs: Vital Signs - 24 hr 06/25/18 09:04 Temperature 96.5 F L Pulse Rate 74 Respiratory 20 Rate Blood Pressure 116/73 - Physical General Appearance: Yes: Moderate Distress, Tremorous, Irritable, Sweating, Anxious HEENTM: Yes: Normal ENT Inspection, JOSE, Pharynx Normal Respiratory: Yes: Lungs Clear, Normal Breath Sounds, No Respiratory Distress Neck: Yes: Within Normal Limits, Supple, Thyroid tenderness Breast: Yes: Within Normal Limits Cardiology: Yes: Within Normal Limits, Regular Rhythm, Regular Rate, S1, S2 Abdominal: Yes: Within Normal Limits, Normal Bowel Sounds, Non Tender, Flat, Soft Genitourinary: Yes: Within Normal Limits Back: Yes: Muscle Spasm Musculoskeletal: Yes: Back pain, Joint Stiffness, Muscle Pain Extremities: Yes: Tremors Neurological: Yes: hand sewer shoes II-XII NML intact, Fully Oriented, Alert, Motor Strength 5/5 Integumentary: Yes: Dry Lymphatic: Yes: Within Normal Limits - Diagnostic (1) Opioid dependence with withdrawal Status: Acute (2) Uncomplicated sedative, hypnotic or anxiolytic withdrawal Status: Acute (3) Cannabis dependence Status: Chronic (4) Cocaine dependence, uncomplicated Status: Chronic (5) ADHD (attention deficit hyperactivity disorder) Status: Suspected Qualifiers: Attention deficit-hyperactivity disorder type: unspecified Qualified Code(s ): F90.9 - Attention-deficit hyperactivity disorder, unspecified type Comment: As per history and existing records. (6) Hx of hepatitis C Status: Chronic Comment: CLIENT REPORTS HE WAS TX'ED (7) Nicotine dependence Status: Acute Qualifiers: Nicotine product type: cigarettes Substance use status: in withdrawal Qualified Code(s): F17.213 - Nicotine dependence, cigarettes, with withdrawal (8) Bipolar disorder Status: Chronic Qualifiers: Active/Remission status: remission status unspecified Qualified Code(s): F31.9 - Bipolar disorder, unspecified (9) Weight loss Status: Acute Cleared for Admission S - Detox or Rehab S Level of Care: Medically Managed Detox Regimen/Protocol: Methadone/Valium S Breath Alcohol Content Breath Alcohol Content: 0 Urine Drug Screen - Results Drug Screen Negative: No Urine Drug Screen Results: SHREYAS-Cocaine, OPI-Opiates, BZO-Benzodiazepines
[2018-06-25] MEDS ORDERED: P-EPHED 60MG/TRIPROLIDI 2.5MG TABLET PO PRN (10:10)
[2018-06-25] MEDS ORDERED: MAGNESIUM HYDROX 2400MG/30ML ORAL SUSPENSION 30 ML CUP PO PRN (10:10)
[2018-06-25] MEDS ORDERED: IBUPROFEN 400 MG TABLET (FP) PO PRN (10:10)
[2018-06-25] MEDS ORDERED: ACETAMINOPHEN 325 MG TABLET (FP) PO PRN (10:10)
[2018-06-25] MEDS ORDERED: MAG HYDROX/AL HYDROX/SIMETH 30 ML UNIT-DOSE CUP PO PRN (10:10)
[2018-06-25] MEDS ORDERED: MENTHOL/PHENOL 1 EACH UD MM PRN (10:10)
[2018-06-25] MEDS ORDERED: LOPERAMIDE HCL 2 MG CAPSULE PO PRN (10:10)
[2018-06-25] MEDS ORDERED: guaiFENesin/D-METHORPHAN HB 10 ML UNIT-DOSE CUPS PO PRN (10:10)
[2018-06-25] MEDS ORDERED: MAGNESIUM CITRATE 300 ML BOTTLE PO PRN (10:10)
[2018-06-25] MEDS ORDERED: diazePAM 5 MG TABLET PO ONE (10:35)
[2018-06-25] MEDS ORDERED: METHADONE HCL 10 MG TABLET (FOR DETOX USE ONLY) PO ONE ×2 (10:45→23:00)
[2018-06-25] MEDS: NICOTINE 21 MG/24 HOURS TOPICAL PATCH TD SCH (11:48)
[2018-06-25] MEDS: diazePAM 5 MG TABLET PO SCH ×2 (16:00→21:26)
[2018-06-25] MEDS: THIAMINE HCL 100 MG TABLET (FP) PO SCH (21:26)
[2018-06-25] MEDS: MELATONIN 5 MG TABLETS PO PRN (22:06)
[2018-06-25 23:03] LABS: URINE APPEARANCE CLOUDY; URINE BILIRUBIN NEGATIVE (<2.0 mg/dL); URINE COLOR AMBER; URINE GLUCOSE (UA) NEGATIVE (NEGATIVE); URINE KETONE TRACE (NEGATIVE); URINE LEUK ESTERASE NEGATIVE (NEGATIVE); URINE NITRITE NEGATIVE (NEGATIVE); URINE PROTEIN 1+ (NEGATIVE)
[2018-06-25 23:14] LABS: EPI CELLS RARE /HPF (FEW); URINE HYALINE CAST 2 /lpf; URINE MUCUS MODERATE
[2018-06-26] MEDS: diazePAM 5 MG TABLET PO SCH ×3 (05:51→22:17)
[2018-06-26] MEDS: diazePAM 5 MG TABLET PO PRN ×2 (07:00→17:58)
[2018-06-26] MEDS ORDERED: METHADONE HCL 10 MG TABLET (FOR DETOX USE ONLY) PO SCH (10:00)
[2018-06-26] MEDS: PRENATAL VITAMINS W/ FOLIC ACID TABLET (FP) PO SCH (10:46)
[2018-06-26] MEDS: NICOTINE 21 MG/24 HOURS TOPICAL PATCH TD SCH (10:48)
[2018-06-26 11:12] LABS: HEMATOCRIT 42.4 % (35.4-49); HEMOGLOBIN 13.7 GM/dL (11.7-16.9); MCH 27.9 pg (25.7-33.7); MCHC 32.3 g/dl (32.0-35.9); MEAN CELL VOLUME 86.4 fl (80-96); MEAN PLT VOLUME 8.7 fl (7.5-11.1); PLATELET COUNT 268 K/MM3 (134-434); RBC 4.91 M/mm3 (4.00-5.60); RDW 14.1 % (11.9-15.9); WHITE BLOOD COUNT 8.2 K/mm3 (4.0-10.0)
[2018-06-26 11:46] LABS: ALBUMIN 4.2 g/dl (3.4-5.0); ALK PHOS 86 U/L (45-117); ANION GAP 6 MMOL/L (8-16); BILIRUBIN,TOTAL 0.3 mg/dL (0.2-1); BLOOD UREA NITROGEN 12 mg/dL (7-18); CALCIUM 9.1 mg/dL (8.5-10.1); CHLORIDE 98 mmol/L (98-107); CO2 34 mmol/L (21-32); CREATININE 0.9 mg/dL (0.55-1.3); GLUCOSE,RANDOM 78 mg/dL (74-106); POTASSIUM 3.7 mmol/L (3.5-5.1); SGOT/AST 66 U/L (15-37); SGPT/ALT 149 U/L (13-61); SODIUM 139 mmol/L (136-145); TOT PROT 8.1 g/dl (6.4-8.2)
[2018-06-26] MEDS ORDERED: LIDOCAINE VISCOUS 2% ORAL/TOP 20 ML UNIT-DOSE CUP MM PRN (12:05)
--- NOTE | 2018-06-26 13:57 | PN ---
BHS COWS - Scale Resting Pulse: 0= [place] 80 or Below Sweatin= Chills/Flushing Restless Observation: 1= Difficult to Sit Still Pupil Size: 0= Normal to Room Light Bone or Joint Aches: 2= Severe Diffuse Aches Runny Nose/ Eye Tearin= None GI Upset > 30mins: 0= None Tremor Observation of Outstretched Hands: 0= None Yawning Observation: 1= 1-2x During Session Anxiety or Irritability: 2=Irritable/Anxious Goose Flesh Skin: 3=Piloerection COWS Score: 10 BHS Progress Note (SOAP) Subjective: Body Aches, Anxious. Objective: PATIENT A & O X 3, OBSERVED AMBULATING ON UNIT. NO ACUTE DISTRESS. 06/26/18 13:54 Vital Signs Temperature 98.4 F 06/26/18 09:20 Pulse Rate 60 06/26/18 09:20 Respiratory Rate 18 06/26/18 09:20 Blood Pressure 96/56 L 06/26/18 09:20 O2 Sat by Pulse Oximetry (%) Laboratory Tests 06/25/18 06/25/18 06/26/18 10:40 23:10 05:45 WBC 8.2 RBC 4.91 Hgb 13.7 Hct 42.4 MCV 86.4 MCH 27.9 MCHC 32.3 RDW 14.1 Plt Count 268 MPV 8.7 Sodium Potassium Chloride Carbon Dioxide Anion Gap BUN Creatinine Creat Clearance w eGFR Random Glucose Calcium Total Bilirubin AST ALT Alkaline Phosphatase Total Protein Albumin Urine Color [place] Urine Appearance Cloudy Urine pH 6.0 Ur Specific [place] 1.028 Urine Protein 1+ H Urine Glucose (UA) Negative Urine Ketones Trace H Urine Blood Negative Urine Nitrite Negative Urine Bilirubin Negative Urine Urobilinogen 2.0 Ur Leukocyte Esterase Negative Urine WBC (Auto) <1 Urine RBC (Auto) <1 Ur Epithelial Cells Rare Hyaline Casts 2 Urine Mucus Moderate RPR Titer HIV 1&2 Antibody Screen Negative HIV P24 Antigen Negative 06/26/18 06/26/18 05:45 05:45 WBC RBC Hgb Hct MCV MCH MCHC RDW Plt Count MPV Sodium 139 Potassium 3.7 Chloride 98 Carbon Dioxide 34 H Anion Gap 6 L BUN 12 Creatinine 0.9 Creat Clearance w eGFR > 60 Random Glucose 78 Calcium 9.1 Total Bilirubin 0.3 AST 66 H ALT 149 H Alkaline Phosphatase 86 Total Protein 8.1 Albumin 4.2 Urine Color Urine Appearance Urine pH Ur Specific [place] Urine Protein Urine Glucose (UA) Urine Ketones Urine Blood Urine Nitrite Urine Bilirubin Urine Urobilinogen Ur Leukocyte Esterase Urine WBC (Auto) Urine RBC (Auto) Ur Epithelial Cells Hyaline Casts Urine Mucus RPR Titer Nonreactive HIV 1&2 Antibody Screen HIV P24 Antigen LABS NOTED. Assessment: 06/26/18 13:56 WITHDRAWAL SYMPTOMS. Plan: CONTINUE DETOX. INCREASE DAILY PO FLUID INTAKE.
--- NOTE | 2018-06-26 14:05 | PN ---
S Progress Note Note: DUE TO VERBAL ALTERCATION WITH OTHER PATIENT ON UNIT, PATIENT TO BE TRANSFERRED TO DETOX UNIT [address] [place] [address] FOR SAFETY. PATIENT VERBALIZED UNDERSTANDING AND CONSENT FOR TRANSFER. Tony DELA CRUZ NP.
[2018-06-26] MEDS: THIAMINE HCL 100 MG TABLET (FP) PO SCH (22:17)
[2018-06-26] MEDS: MELATONIN 5 MG TABLETS PO PRN (22:17)
[2018-06-27 09:35] VITALS: BP 135/71; PULSE 73; TEMP 97.7
[2018-06-27] MEDS ORDERED: diazePAM 5 MG TABLET PO SCH (10:00)
[2018-06-27] MEDS ORDERED: METHADONE HCL 5 MG TABLET (FOR DETOX USE ONLY) PO SCH (10:00)
[2018-06-27] MEDS: PRENATAL VITAMINS W/ FOLIC ACID TABLET (FP) PO SCH (10:03)
[2018-06-27] MEDS: NICOTINE 21 MG/24 HOURS TOPICAL PATCH TD SCH (10:04)
--- NOTE | 2018-06-27 13:03 | DS ---
[facility] Detox Discharge Summary Admission Date: 06/25/18 Discharge Date: 06/27/18 - History Present History: Opioid Dependence Additional Comments: 23 years old male admitted on 06/25/18 for opiate withdrawal stabilization insists to leave the detox unit that "not ready" to maintenance sobriety alert no acute distress denies suicidal denies homocidal no self destructive behavior strong recommend the patient return to [facility] suggesting attend community self help group and meeting - Physical Exam Results Vital Signs: Vital Signs Temperature 97.7 F 06/27/18 09:34 Pulse Rate 73 06/27/18 09:34 Respiratory Rate 18 06/27/18 09:34 Blood Pressure 135/71 06/27/18 09:34 O2 Sat by Pulse Oximetry (%) Pertinent Admission Physical Exam Findings: opiate withdrawal sx Vital Signs Temperature 97.7 F 06/27/18 09:34 Pulse Rate 73 06/27/18 09:34 Respiratory Rate 18 06/27/18 09:34 Blood Pressure 135/71 06/27/18 09:34 O2 Sat by Pulse Oximetry (%) Laboratory Last Values WBC 8.2 K/mm3 (4.0-10.0) 06/26/18 05:45 RBC 4.91 M/mm3 (4.00-5.60) 06/26/18 05:45 Hgb 13.7 GM/dL (11.7-16.9) 06/26/18 05:45 Hct 42.4 % (35.4-49) 06/26/18 05:45 MCV 86.4 fl (80-96) 06/26/18 05:45 MCH 27.9 pg (25.7-33.7) 06/26/18 05:45 MCHC 32.3 g/dl (32.0-35.9) 06/26/18 05:45 RDW 14.1 % (11.9-15.9) 06/26/18 05:45 Plt Count 268 K/MM3 (134-434) 06/26/18 05:45 MPV 8.7 fl (7.5-11.1) 06/26/18 05:45 Sodium 139 mmol/L (136-145) 06/26/18 05:45 Potassium 3.7 mmol/L (3.5-5.1) 06/26/18 05:45 Chloride 98 mmol/L (98-107) 06/26/18 05:45 Carbon Dioxide 34 mmol/L (21-32) H 06/26/18 05:45 Anion Gap 6 MMOL/L (8-16) L 06/26/18 05:45 BUN 12 mg/dL (7-18) 06/26/18 05:45 Creatinine 0.9 mg/dL (0.55-1.3) 06/26/18 05:45 Creat Clearance w eGFR > 60 (>60) 06/26/18 05:45 Random Glucose 78 mg/dL (74-106) 06/26/18 05:45 Calcium 9.1 mg/dL (8.5-10.1) 06/26/18 05:45 Total Bilirubin 0.3 mg/dL (0.2-1) 06/26/18 05:45 AST 66 U/L (15-37) H 06/26/18 05:45 ALT 149 U/L (13-61) H 06/26/18 05:45 Alkaline Phosphatase 86 U/L (45-117) 06/26/18 05:45 Total Protein 8.1 g/dl (6.4-8.2) 06/26/18 05:45 Albumin 4.2 g/dl (3.4-5.0) 06/26/18 05:45 Urine Color [place] 06/25/18 23:10 Urine Appearance Cloudy 06/25/18 23:10 Urine pH 6.0 (5.0-8.0) 06/25/18 23:10 Ur Specific [place] 1.028 (1.010-1.035) 06/25/18 23:10 Urine Protein 1+ (NEGATIVE) H 06/25/18 23:10 Urine Glucose (UA) Negative (NEGATIVE) 06/25/18 23:10 Urine Ketones Trace (NEGATIVE) H 06/25/18 23:10 Urine Blood Negative (NEGATIVE) 06/25/18 23:10 Urine Nitrite Negative (NEGATIVE) 06/25/18 23:10 Urine Bilirubin Negative (<2.0 mg/dL) 06/25/18 23:10 Urine Urobilinogen 2.0 mg/dL (0.2-1.0) 06/25/18 23:10 Ur Leukocyte Esterase Negative (NEGATIVE) 06/25/18 23:10 Urine WBC (Auto) <1 /hpf (3-5) 06/25/18 23:10 Urine RBC (Auto) <1 /hpf (0-3) 06/25/18 23:10 Ur Epithelial Cells Rare /HPF (FEW) 06/25/18 23:10 Hyaline Casts 2 /lpf 06/25/18 23:10 Urine Mucus Moderate 06/25/18 23:10 RPR Titer Nonreactive (NONREACTIVE) 06/26/18 05:45 HIV 1&2 Antibody Screen Negative 06/25/18 10:40 HIV P24 Antigen Negative 06/25/18 10:40 lab noted - Treatment Hospital Course: Detox Protocol Followed, Responded well Patient has Accepted a Re[facility] - Medication Discharge Medications: Ambulatory Orders Quetiapine Fumarate [Seroquel -] 300 mg PO HS 06/25/18 - Diagnosis (1) Weight loss Status: Acute (2) Hx of hepatitis C Status: Chronic (3) Nicotine dependence Status: Acute Qualifiers: Nicotine product type: cigarettes Substance use status: in withdrawal Qualified Code(s): F17.213 - Nicotine dependence, cigarettes, with withdrawal (4) Opioid dependence with withdrawal Status: Acute - AMA Did Patient Leave Against Medical Advice: Yes
[2018-06-29] MEDS ORDERED: METHADONE HCL 10 MG TABLET (FOR DETOX USE ONLY) PO SCH (10:00)
[2018-06-29] MEDS ORDERED: diazePAM 5 MG TABLET PO SCH (10:00)
[2018-06-30] MEDS ORDERED: METHADONE HCL 5 MG TABLET (FOR DETOX USE ONLY) PO SCH (06:00)
== END 2018-06-27 11:22 | disposition left against medical advice (07) | DRG 770 ==
LOC: YASAS 08:44 → Y3N 10:32 → Y6N 06-26 12:55
PROC: HZ2ZZZZ Detoxification Services for Substance Abuse Treatment (ICD-10-PCS; principal; 2018-06-25)
DX: F11.23 Opioid dependence with withdrawal (principal); F13.230 Sedative, hypnotic or anxiolytic dependence with withdrawal, uncomplicated; F14.20 Cocaine dependence, uncomplicated; F12.20 Cannabis dependence, uncomplicated; F17.213 Nicotine dependence, cigarettes, with withdrawal; F32.9 Major depressive disorder, single episode, unspecified; F31.9 Bipolar disorder, unspecified; F90.9 Attention-deficit hyperactivity disorder, unspecified type; B18.2 Chronic viral hepatitis C; R63.4 Abnormal weight loss; Z68.20 Body mass index [BMI] 20.0-20.9, adult; Z91.013 Allergy to seafood
CPT/HCPCS: 36415; 80053; 81003; 81015; 85027; 86593; 87389

== ENCOUNTER 2019-02-25 14:19 | Inpatient (IN) | payer OTHER ==
[2019-02-25 15:19] VITALS: BMI 18.3
--- NOTE | 2019-02-25 17:40 | HP ---
COWS - Scale Resting Pulse: 0= [place] 80 or Below Sweatin= No chills or Flushing Restless Observation: 3= Extraneous Movement Pupil Size: 0= Normal to Room Light Bone or Joint Aches: 0= None Runny Nose/ Eye Tearin= None GI Upset > 30mins: 0= None Tremor Observation: 0= None Yawning Observation: 0= None Anxiety or Irritability: 2=Irritable/Anxious Goose Flesh Skin: 0=Smooth Skin COWS Score: 5 CIWA Score - Admission Criteria OASAS Guidelines: Admission for Medically Managed Detox: Requires at least one of the followin. CIWA greater than 12 2. Seizures within the past 24 hours 3. Delirium tremens within the past 24 hours 4. Hallucinations within the past 24 hours 5. Acute intervention needed for co occurring medical disorder 6. Acute intervention needed for co occurring psychiatric disorder 7. Severe withdrawal that cannot be handled at a lower level of care (continued vomiting, continued diarrhea, abnormal vital signs) requiring intravenous medication and/or fluids 8. Admission ROS [facility] Allergies/Adverse Reactions: Allergies Allergy/AdvReac Type Severity Reaction Status Date / Time fish derived Allergy Severe Rash Verified 02/25/19 14:46 shellfish derived Allergy Severe Rash Verified 02/25/19 14:46 No Known Drug Allergies Allergy Verified 02/25/19 14:46 SEAFOOD Allergy Severe Rash Uncoded 02/25/19 14:46 History of Present Illness: pt here requesting detox from heroin use , reports " a lot " 30 bags via inhalation since age 16 , latest use today afternoon , current symptoms as above , denies significant sober time . Multiple prior admissions at this facility and ER , most recently May 2018 . 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 Upon further inquiry , pt reports Merged With [facility] 15 mg MMTP in [place] , latest dose taken today. When asked how long he has been in the program pt states " I don't know " . cocaine : 30 bags/day via inhalation since age 16 K2 : 5 /day tobacco : 1 ppd etoh : denies PMHX : r ankle 5 years ago frx / ORIF 2/2 slip and fall Meds : denies PSYCH : ADHD , bipolar , depression , denies SI / HI , denies meds , has not seen psychiatry " a long time ago , I don't remember " SHx : homeless , unemployed , finances habit through SSI check for MH issues Exam Limitations: No Limitations - Ebola screening Have you traveled outside of the country in the last 21 days: No (N) Have you had contact with anyone from an Ebola affected area: No Do you have a fever: No - Review of Systems Constitutional: Other (" I don't know ") EENT: reports: No Symptoms Reported Respiratory: reports: No Symptoms reported Cardiac: reports: No Symptoms Reported GI: reports: No Symptoms Reported : reports: No Symptoms Reported Musculoskeletal: reports: No Symptoms Reported Integumentary: reports: No Symptoms Reported Neuro: reports: No Symptoms reported Endocrine: reports: No Symptoms Reported Psychiatric: reports: Orientated x3, Agitated Patient History - Patient Medical History Hx Anemia: No Hx Asthma: No Hx Chronic Obstructive Pulmonary Disease (COPD): No Hx Cancer: No Hx Cardiac Disorders: No Hx Congestive Heart Failure: No Hx Hypertension: No Hx Hypercholesterolemia: No Hx Pacemaker: No HX Cerebrovascular Accident: No Hx Seizures: No Hx Dementia: No Hx Diabetes: No Hx Gastrointestinal Disorders: No Hx Liver Disease: No Hx Genitourinary Disorders: No Hx Sexually Transmitted Disorders: No Hx Renal Disease (ESRD): No Hx Thyroid Disease: No Hx Human Immunodeficiency Virus (HIV): No Hx Hepatitis C: Yes (TX'ED) Hx Depression: Yes Hx Suicide Attempt: No Hx Bipolar Disorder: Yes (AND ADHD ) Hx Schizophrenia: No - Patient Surgical History Past Surgical History: Yes Hx Neurologic Surgery: No Hx Cataract Extraction: No Hx Cardiac Surgery: No Hx Lung Surgery: No Hx Breast Surgery: No Hx Breast Biopsy: No Hx Abdominal Surgery: No Hx Appendectomy: No Hx Cholecystectomy: No Hx Genitourinary Surgery: No Hx Section: No Hx Orthopedic Surgery: Yes (fx, right ankle in 2010) Anesthesia Reaction: No - PPD History Date: 05/26/18 Results: 0 mm - Smoking Cessation Smoking history: Current every day smoker Have you smoked in the past 12 months: Yes Aproximately how many cigarettes per day: 20 Cigars Per Day: 0 Hx Chewing Tobacco Use: No Initiated information on smoking cessation: No - Substances abused Heroin Substance route: Inhalation Frequency: Daily Amount used: 15 BAGS Age of first use: 6 Date of last use: 02/25/19 Cocaine Substance route: Inhalation Frequency: Daily Amount used: 10 BAGS Age of first use: 6 Date of last use: 02/25/19 Family Disease History - Family Disease History Family History: Denies (" I don't know ") Admission Physical Exam BHS - Vital Signs Vital Signs: Vital Signs - 24 hr 02/25/19 15:13 Temperature 98.8 F Pulse Rate 74 Respiratory 20 Rate Blood Pressure 107/65 - Physical General Appearance: Yes: Irritable HEENTM: Yes: EOMI, Hearing grossly Normal, Normocephalic, Normal Voice Respiratory: Yes: Lungs Clear, Normal Breath Sounds, No Respiratory Distress, No Accessory Muscle Use Neck: Yes: No masses,lesions,Nodules, Trachea in good position Cardiology: Yes: Regular Rhythm, Regular Rate, S1, S2 Abdominal: Yes: Non Tender, Soft Musculoskeletal: Yes: Gait Steady Extremities: Yes: Normal Range of Motion, Non-Tender Neurological: Yes: Fully Oriented, Alert, Motor Strength 5/5 Integumentary: Yes: Warm - Diagnostic (1) Opioid dependence with uncomplicated intoxication Current Visit: Yes Status: Acute (2) Nicotine dependence Current Visit: Yes Status: Chronic Qualifiers: Nicotine product type: cigarettes (3) Cocaine dependence, uncomplicated Current Visit: Yes Status: Chronic Breathalyzer - Breathalyzer Breathalyzer: 0 Urine Drug Screen - Test Device Lot number: [id number] Expiration date: 11/26/20 - Control Is test valid?: Yes - Results Drug screen NEGATIVE: No Urine drug screen results: SHREYAS-Cocaine, FEN-Fentanyl, MOP-Opiates, OXY-Oxycodone , MTD-Methadone Inpatient Rehab Admission - Rehab Decision to Admit Inpatient rehab admission?: Yes - Initial Determination Are CD services needed?: Yes Free of communicable disease: Yes Not in need of hospitalization: Yes - Rehab Admission Criteria Previous failed treatment: Yes Poor recovery environment: Yes Comorbidities: No Lacks judgement: Yes Patient is meeting Inpatient Rehab admission criteria:: Yes (Methadone lopez to be verified in AM w/ MMTP )
[2019-02-25] MEDS ORDERED: MENTHOL/PHENOL 1 EACH UD MM PRN (18:40)
[2019-02-25] MEDS ORDERED: IBUPROFEN 400 MG TABLET (FP) PO PRN (18:40)
[2019-02-25] MEDS ORDERED: P-EPHED 60MG/TRIPROLIDI 2.5MG TABLET PO PRN (18:40)
[2019-02-25] MEDS ORDERED: guaiFENesin 200 MG/10 ML 10 ML UNIT-DOSE CUPS PO PRN (18:40)
[2019-02-25] MEDS ORDERED: MAG HYDROX/AL HYDROX/SIMETH 30 ML UNIT-DOSE CUP PO PRN (18:40)
[2019-02-25] MEDS ORDERED: MAGNESIUM HYDROX 2400MG/30ML ORAL SUSPENSION 30 ML CUP PO PRN (18:40)
[2019-02-25] MEDS ORDERED: MAGNESIUM CITRATE 300 ML BOTTLE PO PRN (18:40)
[2019-02-25] MEDS ORDERED: ACETAMINOPHEN 325 MG TABLET (FP) PO PRN (18:40)
[2019-02-25] MEDS ORDERED: NICOTINE POLACRILEX 2 MG GUM BC PRN (18:40)
[2019-02-25] MEDS ORDERED: LOPERAMIDE HCL 2 MG CAPSULE PO PRN (18:40)
[2019-02-25] MEDS: THIAMINE HCL 100 MG TABLET (FP) PO SCH (21:40)
[2019-02-25] MEDS ORDERED: MELATONIN 5 MG TABLETS PO PRN (22:00)
[2019-02-26] MEDS ORDERED: METHADONE HCL 5 MG TABLET PO SCH (06:00)
[2019-02-26 09:30] LABS: ALBUMIN 4.2 g/dl (3.4-5.0); BILIRUBIN,TOTAL 0.4 mg/dL (0.2-1); BLOOD UREA NITROGEN 12.6 mg/dL (7-18); CREATININE 0.9 mg/dL (0.55-1.3); POTASSIUM 4.2 mmol/L (3.5-5.1)
[2019-02-26 09:32] LABS: HEMOGLOBIN 15.4 GM/dL (11.7-16.9); MCH 28.5 pg (25.7-33.7); MCHC 33.5 g/dl (32.0-35.9); MEAN CELL VOLUME 85.1 fl (80-96); MEAN PLT VOLUME 8.2 fl (7.5-11.1); PLATELET COUNT 286 K/MM3 (134-434); RDW 14.6 % (11.9-15.9); WHITE BLOOD COUNT 7.8 K/mm3 (4.0-10.0)
[2019-02-26] MEDS: PRENATAL VITAMINS W/ FOLIC ACID TABLET (FP) PO SCH (10:05)
--- NOTE | 2019-02-26 16:50 | CONSULT ---
[facility] Psychiatric Consult - Data Date of interview: 02/26/19 Admission source: [facility] Identifying data: Direct admission to [address], from the community, for this 24 y/o male, with a history of frequent utilization of services at [facility], now seeking rehabilitative care addressing his substance use disorders (heroin, cannabis, cocaine) co-morbid with ADHD + Bipolar Disorder. Patient is single, no dependents, domiciled, unemployed and supported on SSI benefits. Substance Abuse History: Discussed in this session. Confirmed by patient. Details in current [facility] report as follows : Smoking history: Current every day smoker. Have you smoked in the past 12 months: Yes. Aproximately how many cigarettes per day: 20. Cigars Per Day: 0. Hx Chewing Tobacco Use: No. Initiated information on smoking cessation: No. - Substances abused. Heroin. Substance route: Inhalation. Frequency: Daily. Amount used: 15 BAGS. Age of first use: 6. Date of last use: 02/25/19. Cocaine. Substance route: Inhalation. Frequency: Daily. Amount used: 10 BAGS. Age of first use: 6. Date of last use: 02/25/19 Medical History: Medical profile is remarkable for hepatitis C. Noted history of orthosurgery for fracture of right ankle (2010). Psychiatric History: History of multiple psychiatric hospitalizations ([facility], [facility]). Onset of mental illness in childhood (age [age] : behavioral dyscontrol). Patient was diagnosed with ADHD during childhood/adolescence (treated with psychostimulants). Diagnosis was revised to Bipolar Disorder. He used to be maintained on valproate and seroquel. Mr Granger is known for a chronic history of non-adherence to OPD care + psychotropic medications. Presents with a pattern of dismissals from OPD programs ([facility] + [facility]). Denies history of suicide attempts. Physical/Sexual Abuse/Trauma History: Not discussed in this encounter. Patient declines to revisit this domain. Additional Comment: Urine drug screen results: SHREYAS-Cocaine, FEN-Fentanyl, MOP- Opiates, OXY-Oxycodone, MTD-Methadone. Noted on admission. Mental Status Exam - Mental Status Exam Alert and Oriented to: Time, Place, Person Cognitive Function: Grossly Intact Patient Appearance: Unkempt, Disheveled Mood: Nervous, Withdrawn (indifferent to interviewer) Affect: Inappropriate, Blunted Patient Behavior: Passive, Guarded, Cooperative (superficially cooperative) Speech Pattern: Clear, Delayed Voice Loudness: Normal Thought Process: Goal Oriented Thought Disorder: Bizarre Hallucinations: Denies Suicidal Ideation: Denies Insight/Judgement: Poor Sleep: Well Appetite: Good Muscle strength/Tone: Normal Gait/Station: Normal Psychiatric Findings - Problem List ([place] 1, 2,3) (1) Opioid use disorder Current Visit: Yes Status: Chronic (2) Cocaine use disorder Current Visit: Yes Status: Chronic (3) Cannabis dependence Current Visit: Yes Status: Chronic (4) Substance induced mood disorder Current Visit: Yes Status: Chronic (5) Bipolar disorder Current Visit: Yes Status: Chronic Qualifiers: Active/Remission status: remission status unspecified Qualified Code(s): F31.9 - Bipolar disorder, unspecified Comment: By history. Not compliant with medications. (6) ADHD (attention deficit hyperactivity disorder) Current Visit: Yes Status: Chronic Qualifiers: Attention deficit-hyperactivity disorder type: unspecified Qualified Code(s ): F90.9 - Attention-deficit hyperactivity disorder, unspecified type Comment: As per history and existing records. (7) Non-compliance Current Visit: Yes Status: Chronic - Initial Treatment Plan Initial Treatment Plan: Psychoeducation. Sleep hygiene. Support. Resumed : seroquel 100 mg po hs. Side effects/benefits discussed with patient. Mr Granger agrees with this careplan. Gave consent (verbal) to MD. Wiggins.
[2019-02-26] MEDS: QUEtiapine FUMARATE 100 MG TABLET (FP) PO SCH (21:22)
[2019-02-26] MEDS: THIAMINE HCL 100 MG TABLET (FP) PO SCH (21:22)
[2019-02-27] MEDS: hydrOXYzine PAMOATE 25 MG CAPSULE (FP) PO PRN ×3 (03:47→21:34)
[2019-02-27] MEDS: PRENATAL VITAMINS W/ FOLIC ACID TABLET (FP) PO SCH (10:16)
[2019-02-27] MEDS: QUEtiapine FUMARATE 100 MG TABLET (FP) PO SCH (21:33)
[2019-02-27] MEDS: THIAMINE HCL 100 MG TABLET (FP) PO SCH (21:33)
[2019-02-28] MEDS: hydrOXYzine PAMOATE 25 MG CAPSULE (FP) PO PRN (02:44)
[2019-02-28 07:12] VITALS: BP 125/81; PULSE 77; TEMP 98.4
--- NOTE | 2019-02-28 11:20 | DS ---
[facility] Detox Discharge Summary Admission Date: 02/25/19 Discharge Date: 02/28/19 - History Present History: Cocaine Dependence, Opioid Dependence, MMTP Additional Comments: Pt is a 24 y/o male admitted to rehab on 02/25/19 with a hx of heroin and cocaine use disorder [facility] po daily. Pt wants to go back to his out patient methadone clinic today. Pt is unable to communicate without agitation/abrasive response. Pertinent Past History: Hep C ADHD Bipolar Disorder - Physical Exam Results Vital Signs: Vital Signs Temperature 98.4 F 02/28/19 07:12 Pulse Rate 77 02/28/19 07:12 Respiratory Rate 18 02/28/19 07:12 Blood Pressure 125/81 02/28/19 07:12 O2 Sat by Pulse Oximetry (%) Pertinent Admission Physical Exam Findings: Pt is Alert o x 3. Ambulating with steady gait. Extremely anxious to leave and walks out of consultation room before provider could speak to pt. Laboratory Tests 02/26/19 02/26/19 02/26/19 07:30 07:30 07:30 WBC 7.8 RBC 5.40 Hgb 15.4 Hct 46.0 MCV 85.1 MCH 28.5 MCHC 33.5 RDW 14.6 Plt Count 286 MPV 8.2 Sodium 138 Potassium 4.2 Chloride 102 Carbon Dioxide 30 Anion Gap 7 L BUN 12.6 Creatinine 0.9 Est GFR (CKD-EPI)AfAm 136.14 Est GFR (CKD-EPI)NonAf 117.46 Random Glucose 109 H Calcium 9.0 Total Bilirubin 0.4 AST 30 ALT 58 Alkaline Phosphatase 97 Total Protein 8.0 Albumin 4.2 RPR Titer Nonreactive HIV 1&2 Ag/Ab, 4th Gen HIV 1&2 Antibody Screen HIV P24 Antigen 02/26/19 02/26/19 07:30 10:00 WBC RBC Hgb Hct MCV MCH MCHC RDW Plt Count MPV Sodium Potassium Chloride Carbon Dioxide Anion Gap BUN Creatinine Est GFR (CKD-EPI)AfAm Est GFR (CKD-EPI)NonAf Random Glucose Calcium Total Bilirubin AST ALT Alkaline Phosphatase Total Protein Albumin RPR Titer HIV 1&2 Ag/Ab, 4th Gen Non reactive HIV 1&2 Antibody Screen Cancelled HIV P24 Antigen Cancelled - Treatment Hospital Course: Discharged Condition Good Patient has Accepted a Rehab Referral to: Pt will be going back to [facility] - Medication Discharge Medications: Ambulatory Orders Quetiapine Fumarate [Seroquel -] 300 mg PO HS 06/25/18 - Diagnosis (1) Opioid dependence with withdrawal Status: Chronic (2) Cocaine dependence, uncomplicated Status: Chronic (3) Hx of hepatitis C Status: Chronic (4) Nicotine dependence Status: Chronic Qualifiers: Nicotine product type: cigarettes Substance use status: uncomplicated Qualified Code(s): F17.210 - Nicotine dependence, cigarettes, uncomplicated - AMA Did Patient Leave Against Medical Advice: Yes ("Not ready for rehab tx" )
--- NOTE | 2019-02-28 11:30 | DS ---
[facility] Rehab Discharge Summary - [facility] Rehab Discharge Summary Admission Date: 02/25/19 Discharge Date: 02/28/19 - History Present History: Cocaine dependence, MMTP, Opioid dependence Additional Comments: Pt is a 24 y/o male admitted to rehab on 02/25/19 with a hx of heroin and cocaine use disorder [facility] po daily. Pt wants to go back to his out patient methadone clinic today. Pt is unable to communicate without agitation/abrasive responses. Pertinent Past History: Hep C ADHD Bipolar Disorder - Discharge Physical Exam Vital Signs: Pt is Alert o x 3. Ambulating with steady gait. Extremely anxious to leave and walks out of consultation room before provider could speak to pt. Vital Signs Temperature 98.4 F 02/28/19 07:12 Pulse Rate 77 02/28/19 07:12 Respiratory Rate 18 02/28/19 07:12 Blood Pressure 125/81 02/28/19 07:12 O2 Sat by Pulse Oximetry (%) Pertinent Admission Physical Exam Findings: Laboratory Tests 02/26/19 02/26/19 02/26/19 07:30 07:30 07:30 WBC 7.8 RBC 5.40 Hgb 15.4 Hct 46.0 MCV 85.1 MCH 28.5 MCHC 33.5 RDW 14.6 Plt Count 286 MPV 8.2 Sodium 138 Potassium 4.2 Chloride 102 Carbon Dioxide 30 Anion Gap 7 L BUN 12.6 Creatinine 0.9 Est GFR (CKD-EPI)AfAm 136.14 Est GFR (CKD-EPI)NonAf 117.46 Random Glucose 109 H Calcium 9.0 Total Bilirubin 0.4 AST 30 ALT 58 Alkaline Phosphatase 97 Total Protein 8.0 Albumin 4.2 RPR Titer Nonreactive HIV 1&2 Ag/Ab, 4th Gen HIV 1&2 Antibody Screen HIV P24 Antigen 02/26/19 02/26/19 07:30 10:00 WBC RBC Hgb Hct MCV MCH MCHC RDW Plt Count MPV Sodium Potassium Chloride Carbon Dioxide Anion Gap BUN Creatinine Est GFR (CKD-EPI)AfAm Est GFR (CKD-EPI)NonAf Random Glucose Calcium Total Bilirubin AST ALT Alkaline Phosphatase Total Protein Albumin RPR Titer HIV 1&2 Ag/Ab, 4th Gen Non reactive HIV 1&2 Antibody Screen Cancelled HIV P24 Antigen Cancelled Unremarkable See admission h/p - Treatment Discharge Condition: Discharge condition good Hospital Course: Pt's stay was safe and pt wants to go back to his methadone clinic to continue care. - Medication Discharge Medications: Ambulatory Orders Quetiapine Fumarate [Seroquel -] 300 mg PO HS 06/25/18 - Medication-Assisted Treatment (MAT) Medication-Assisted Treatment (MAT): Yes - Discharge Instructions Diet, activity, other medical instructions: Diet:Regular Activity: oob,Ad Stephanie Other medical instructions:Follow up with Derick [facility]-MMTP on 03/01/[address] [place] [address] Follow up with primary care at [facility] when needed. - Diagnosis (1) Opioid dependence with withdrawal Status: Chronic (2) Cocaine dependence, uncomplicated Status: Chronic (3) Hx of hepatitis C Status: Chronic (4) Nicotine dependence Status: Chronic Qualifiers: Nicotine product type: cigarettes Substance use status: uncomplicated Qualified Code(s): F17.210 - Nicotine dependence, cigarettes, uncomplicated
== END 2019-02-28 09:25 | disposition left against medical advice (07) | DRG 770 ==
LOC: YASAS 14:19 → Y5N 19:13
PROVIDERS: ADMIT Neuromusculoskeletal Medicine & OMM; ATTEND Surgery
PROC: HZ42ZZZ Group Counseling for Substance Abuse Treatment, Cognitive-Behavioral (ICD-10-PCS; principal; 2019-02-25)
DX: F11.20 Opioid dependence, uncomplicated (principal); F14.20 Cocaine dependence, uncomplicated; F12.20 Cannabis dependence, uncomplicated; F17.210 Nicotine dependence, cigarettes, uncomplicated; F19.24 Other psychoactive substance dependence with psychoactive substance-induced mood disorder; F31.9 Bipolar disorder, unspecified; F90.9 Attention-deficit hyperactivity disorder, unspecified type; B18.2 Chronic viral hepatitis C; Z91.19 Patient's noncompliance with other medical treatment and regimen; Z91.013 Allergy to seafood
CPT/HCPCS: 36415; 80053; 85027; 86593; 87389

== ENCOUNTER 2019-07-13 15:17 | Inpatient (IN) | payer OTHER ==
[2019-07-13 18:19] VITALS: BMI 20.9
--- NOTE | 2019-07-13 21:51 | HP ---
COWS - Scale Resting Pulse: 0= [place] 80 or Below Sweatin= Chills/Flushing Restless Observation: 1= Difficult to Sit Still Pupil Size: 0= Normal to Room Light Bone or Joint Aches: 4=Acute Joint/Muscle Pain Runny Nose/ Eye Tearin= Nasal Congestion GI Upset > 30mins: 0= None Tremor Observation: 0= None Yawning Observation: 1= 1-2x During Session Anxiety or Irritability: 2=Irritable/Anxious Goose Flesh Skin: 0=Smooth Skin COWS Score: 10 CIWA Score - Admission Criteria OASAS Guidelines: Admission for Medically Managed Detox: Requires at least one of the followin. CIWA greater than 12 2. Seizures within the past 24 hours 3. Delirium tremens within the past 24 hours 4. Hallucinations within the past 24 hours 5. Acute intervention needed for co occurring medical disorder 6. Acute intervention needed for co occurring psychiatric disorder 7. Severe withdrawal that cannot be handled at a lower level of care (continued vomiting, continued diarrhea, abnormal vital signs) requiring intravenous medication and/or fluids 8. Admitting History and Physical - Smoking History Smoking history: Current every day smoker Have you smoked in the past 12 months: Yes Aproximately how many cigarettes per day: 20 - Alcohol/Substance Use Hx Alcohol Use: No Admission ROS [facility] - HPI Chief Complaint: HEROIN DETOX Allergies/Adverse Reactions: Allergies Allergy/AdvReac Type Severity Reaction Status Date / Time fish derived Allergy Severe Rash Verified 07/13/19 18:11 shellfish derived Allergy Severe Rash Verified 07/13/19 18:11 No Known Drug Allergies Allergy Verified 07/13/19 18:11 SEAFOOD Allergy Severe Rash Uncoded 07/13/19 18:11 History of Present Illness: HERE FOR HEROIN DETOX. CLIENT IS KNOWN TO THIS PROGRAM. KNOWN TO THIS PROGRAM. REFERRED BY PRINCE FOR LEGAL MANDATE. HE REPORTS DAILY USE. LAST USE A FEW HOURS AGO. DENIES IVDU, +DRUG OVERDOSE STATES ITS BEEN A WHILE. DENIES HX/O BLACK OUTS, SZ D/O. HE ALSO ABUSES COCAINE AND MARIJUANA. CLIENT REPORTS BEING INCARCERATED FROM 02/2019 TO 05/2019. RELAPSING IMMEDIATELY AFTER DC. 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 LIVES WITH MOTHER, UNEMPLOYED, PROBATION Exam Limitations: No Limitations - Ebola screening Have you traveled outside of the country in the last 21 days: No (N) Have you had contact with anyone from an Ebola affected area: No Have you been sick,other than usual withdrawal symptoms: No Do you have a fever: No - Review of Systems Constitutional: Chills, Night Sweats, Changes in sleep EENT: reports: No Symptoms Reported Respiratory: reports: No Symptoms reported Cardiac: reports: No Symptoms Reported GI: reports: No Symptoms Reported : reports: No Symptoms Reported Musculoskeletal: reports: Joint Pain Integumentary: reports: Flushing Neuro: reports: No Symptoms reported Endocrine: reports: No Symptoms Reported Hematology: reports: No Symptoms Reported Psychiatric: reports: Orientated x3, Anxious, Depressed (DENIES SI) Other Systems: Reviewed and Negative Patient History - Patient Medical History Hx Anemia: No Hx Asthma: No Hx Chronic Obstructive Pulmonary Disease (COPD): No Hx Cancer: No Hx Cardiac Disorders: No Hx Congestive Heart Failure: No Hx Hypertension: No Hx Hypercholesterolemia: No Hx Pacemaker: No HX Cerebrovascular Accident: No Hx Seizures: No Hx Dementia: No Hx Diabetes: No Hx Gastrointestinal Disorders: No Hx Liver Disease: No Hx Genitourinary Disorders: No Hx Sexually Transmitted Disorders: No Hx Renal Disease (ESRD): No Hx Thyroid Disease: No Hx Human Immunodeficiency Virus (HIV): No Hx Hepatitis C: Yes (TX'ED) Hx Depression: Yes Hx Suicide Attempt: No Hx Bipolar Disorder: Yes (AND ADHD ) Hx Schizophrenia: No Other Medical History: DENIES - Patient Surgical History Past Surgical History: Yes Hx Neurologic Surgery: No Hx Cataract Extraction: No Hx Cardiac Surgery: No Hx Lung Surgery: No Hx Breast Surgery: No Hx Breast Biopsy: No Hx Abdominal Surgery: No Hx Appendectomy: No Hx Cholecystectomy: No Hx Genitourinary Surgery: No Hx Section: No Hx Orthopedic Surgery: Yes (fx, right ankle in 2010) Anesthesia Reaction: No - PPD History Previous Implant?: Yes Documented Results: Negative w/proof Implanted On Prior R Admission?: Yes Date: 05/26/18 Results: 0 mm PPD to be Administered?: Yes - Smoking Cessation Smoking history: Current every day smoker Have you smoked in the past 12 months: Yes Aproximately how many cigarettes per day: 20 Cigars Per Day: 0 Hx Chewing Tobacco Use: No Initiated information on smoking cessation: Yes 'Breaking Loose' booklet given: 07/13/19 - Substance & Tx. History Hx Alcohol Use: Yes Hx Substance Use: Yes Substance Use Type: Cocaine, Heroin Hx Substance Use Treatment: Yes ([facility]) - Substances abused Cocaine Substance route: Inhalation Frequency: Daily Amount used: 4 bags Age of first use: 16 Date of last use: 07/13/19 Heroin Substance route: Inhalation Frequency: Daily Amount used: 4 bags Age of first use: 16 Date of last use: 07/13/19 Admission Physical Exam [facility] - Vital Signs Vital Signs: Vital Signs - 24 hr 07/13/19 18:10 Temperature 97.5 F L Pulse Rate 79 Respiratory 18 Rate Blood Pressure 110/68 - Physical General Appearance: Yes: Mild Distress, Anxious HEENTM: Yes: Normocephalic, Normal Voice, JOSE, Pharynx Normal, Nasal Congestion , Rhinorrhea Respiratory: Yes: Chest Non-Tender, Lungs Clear, Normal Breath Sounds, No Respiratory Distress, No Accessory Muscle Use Neck: Yes: No masses,lesions,Nodules, Supple, Trachea in good position Breast: Yes: Breasts Symetrical Cardiology: Yes: Regular Rhythm, Regular Rate, S1, S2 Abdominal: Yes: Non Tender, Soft, Increased Bowel Sounds Genitourinary: Yes: Within Normal Limits Back: Yes: Normal Inspection Musculoskeletal: Yes: full range of Motion, Gait Steady, Back pain Extremities: Yes: Normal Capillary Refill, Normal Range of Motion, Non-Tender, Tremors (felt) Neurological: Yes: Fully Oriented, Alert, Motor Strength 5/5 Integumentary: Yes: Warm, Clammy Lymphatic: Yes: Within Normal Limits - Diagnostic (1) Cannabis dependence Current Visit: Yes Status: Acute (2) Cocaine dependence, uncomplicated Current Visit: Yes Status: Acute (3) Nicotine dependence Current Visit: Yes Status: Chronic Qualifiers: Nicotine product type: cigarettes Substance use status: uncomplicated Qualified Code(s): F17.210 - Nicotine dependence, cigarettes, uncomplicated (4) Non-compliance Current Visit: Yes Status: Chronic (5) Opioid dependence with withdrawal Current Visit: Yes Status: Acute (6) Substance induced mood disorder Current Visit: Yes Status: Chronic Cleared for Admission [facility] - Detox or Rehab [facility] Level of Care: Medically Managed Detox Regimen/Protocol: Methadone Claeared for Rehab Admission: No Breathalyzer - Breathalyzer Breathalyzer: 0 Urine Drug Screen - Test Device Lot number: [id number] Expiration date: 11/26/20 - Control Is test valid?: Yes - Results Drug screen NEGATIVE: No Urine drug screen results: SHREYAS-Cocaine, FEN-Fentanyl, MOP-Opiates, OXY-Oxycodone , MTD-Methadone Inpatient Rehab Admission - Rehab Decision to Admit Inpatient rehab admission?: No
[2019-07-13] MEDS ORDERED: NICOTINE POLACRILEX 2 MG GUM BUC PRN (21:59)
[2019-07-13] MEDS ORDERED: MENTHOL/PHENOL 1 EACH UD MM PRN (21:59)
[2019-07-13] MEDS ORDERED: cloNIDine HCL 0.1 MG TABLET PO PRN (21:59)
[2019-07-13] MEDS ORDERED: MAGNESIUM CITRATE 300 ML BOTTLE PO PRN (21:59)
[2019-07-13] MEDS ORDERED: ONDANSETRON *ODT* 4 MG TABLET SL PRN (21:59)
[2019-07-13] MEDS ORDERED: MAGNESIUM HYDROX 2400MG/30ML ORAL SUSPENSION 30 ML CUP PO PRN (21:59)
[2019-07-13] MEDS ORDERED: METHOCARBAMOL 500 MG TABLET PO PRN (21:59)
[2019-07-13] MEDS ORDERED: ACETAMINOPHEN 325 MG TABLET (FP) PO PRN ×2 (21:59)
[2019-07-13] MEDS ORDERED: guaiFENesin 200 MG/10 ML 10 ML UNIT-DOSE CUPS PO PRN (21:59)
[2019-07-13] MEDS ORDERED: MELATONIN 5 MG TABLETS PO PRN (21:59)
[2019-07-13] MEDS ORDERED: IBUPROFEN 400 MG TABLET (FP) PO PRN (21:59)
[2019-07-13] MEDS ORDERED: BISMUTH SUBSALICYLATE 524 MG/30 ML UD PO PRN (21:59)
[2019-07-13] MEDS ORDERED: MAG HYDROX/AL HYDROX/SIMETH 30 ML UNIT-DOSE CUP PO PRN (21:59)
[2019-07-13] MEDS ORDERED: P-EPHED 60MG/TRIPROLIDI 2.5MG TABLET PO PRN (21:59)
[2019-07-13] MEDS ORDERED: DICYCLOMINE HCL 10 MG CAPSULE PO PRN (21:59)
[2019-07-13] MEDS ORDERED: METHADONE HCL 10 MG TABLET (FOR DETOX USE ONLY) PO ONE (22:45)
[2019-07-13] MEDS: THIAMINE HCL 100 MG TABLET (FP) PO SCH (23:50)
[2019-07-14] MEDS: hydrOXYzine PAMOATE 50 MG CAPSULE (FP) PO PRN ×2 (01:31→14:34)
[2019-07-14] MEDS ORDERED: METHADONE HCL 10 MG TABLET (FOR DETOX USE ONLY) ONE (09:27)
[2019-07-14] MEDS ORDERED: METHADONE HCL 5 MG TABLET (FOR DETOX USE ONLY) ONE (09:27)
[2019-07-14] MEDS ORDERED: METHADONE (DETOX) 20 MG, METHADONE (DETOX) 5 MG PO ONE (10:00)
[2019-07-14] MEDS: PRENATAL VITAMINS W/ FOLIC ACID TABLET (FP) PO SCH (11:29)
[2019-07-14] MEDS: NICOTINE 21 MG/24 HOURS TOPICAL PATCH TD SCH (11:31)
[2019-07-14 11:38] LABS: HEMOGLOBIN 14.7 GM/dL (11.7-16.9); MCH 28.6 pg (25.7-33.7); MCHC 33.3 g/dl (32.0-35.9); MEAN CELL VOLUME 85.8 fl (80-96); MEAN PLT VOLUME 9.3 fl (7.5-11.1); PLATELET COUNT 225 K/MM3 (134-434); RBC 5.13 M/mm3 (4.00-5.60); RDW 14.2 % (11.9-15.9); WHITE BLOOD COUNT 6.3 K/mm3 (4.0-10.0)
--- NOTE | 2019-07-14 11:38 | CONSULT ---
[facility] Psychiatric Consult - Data Date of interview: 07/14/19 Admission source: Probation Identifying data: Mr Granger is a 24 years old single male, unemployed receiving SSI, homeless seeking detox treatment for opioid, cocaine and cannabis Substance Abuse History: Reports history of heroin, cocaine and marijuana use. Refer to addiction counseor's summary for further information Medical History: Significant for history of treatment for hepatitis C and history of orthosurgery for fracture of right ankle (2010). Smokes cigarettes 1 ppd Psychiatric History: Patient is known for multiple admission to this facility. His most recent admission was in January 2019. He is superficially cooperative and irritable during this interview. He reports that he was diagnosed with ADHD at age 6 and later revised to Bipolar Disorder. Reports multiple previous psychiatric hospitalizations at various facilities including [facility], [facility] [place] . Onset of mental illness in [facility] (age [age] : behavioral dyscontrol). Patient was diagnosed with ADHD during childhood /adolescence (treated with psychostimulants). Diagnosis w He used to be maintained on valproate and seroquel. Mr Granger is known for a chronic history of non-adherence to OPD care and psychotropic medications. He attended OPD programs at [facility] and more recently [facility]. He used to be maintained on Depakote and Seroquel. During most recent admission to this facility, he saw Dr Concepcion on 02/26/19 and he was prescribed Seroquel 100 mg/hs. Reports that he has been off medications since discharge. Denies previous suicide attempt. At Present, denies experiencing psychotic, manic or depressive symptoms, S/H ideations. However, reports feeling anxious and sleeping poorly Physical/Sexual Abuse/Trauma History: Not addressed Mental Status Exam - Mental Status Exam Alert and Oriented to: Time, Place, Person Cognitive Function: Fair Patient Appearance: Well Groomed Mood: Anxious Affect: Appropriate Patient Behavior: Uncooperative, Cooperative (unc) Speech Pattern: Clear Thought Process: Intact, Goal Oriented Thought Disorder: Not Present Hallucinations: Denies Suicidal Ideation: Denies Homicidal Ideation: Denies Sleep: Poorly Appetite: Fair Muscle strength/Tone: Normal Gait/Station: Normal Psychiatric Findings - Problem List ([place] 1, 2,3) (1) Bipolar disorder Current Visit: No Status: Chronic Qualifiers: Active/Remission status: remission status unspecified Qualified Code(s): F31.9 - Bipolar disorder, unspecified Comment: By history. Not compliant with medications. (2) ADHD (attention deficit hyperactivity disorder) Current Visit: No Status: Ruled-out Qualifiers: Attention deficit-hyperactivity disorder type: unspecified Qualified Code(s ): F90.9 - Attention-deficit hyperactivity disorder, unspecified type Comment: As per history and existing records. (3) Substance-induced anxiety disorder Current Visit: Yes Status: Acute (4) Substance-induced sleep disorder Current Visit: Yes Status: Acute (5) Opioid dependence with withdrawal Current Visit: Yes Status: Acute (6) Cocaine dependence, uncomplicated Current Visit: Yes Status: Acute (7) Cannabis dependence Current Visit: Yes Status: Acute (8) Nicotine dependence Current Visit: Yes Status: Chronic Qualifiers: Nicotine product type: cigarettes Substance use status: uncomplicated Qualified Code(s): F17.210 - Nicotine dependence, cigarettes, uncomplicated (9) Hepatitis C Current Visit: Yes Status: Resolved - Initial Treatment Plan Initial Treatment Plan: 1) Resume Seroquel 100 mg po HS. 2) Continue inpatient detoxification
--- NOTE | 2019-07-14 11:38 | PN ---
BHS COWS - Scale Resting Pulse: 0= SD 80 or Below Sweatin= Chills/Flushing Restless Observation: 1= Difficult to Sit Still Pupil Size: 0= Normal to Room Light Bone or Joint Aches: 1= Mild Discomfort Runny Nose/ Eye Tearin= Nasal Congestion GI Upset > 30mins: 1= Stomach Cramp Tremor Observation of Outstretched Hands: 1= Tremor [place], Not Seen Yawning Observation: 2= >3x During Session Anxiety or Irritability: 2=Irritable/Anxious Goose Flesh Skin: 0=Smooth Skin COWS Score: 10 BHS Progress Note (SOAP) Subjective: Patient is a 24 yo male with hx of opioid dependence is her on methadone detox protocol c/o og interrupted sleep, irritability, chills, sweats Objective: 07/14/19 11:35 Vital Signs Temperature 97.7 F 07/14/19 09:58 Pulse Rate 65 07/14/19 09:58 Respiratory Rate 17 07/14/19 09:58 Blood Pressure 119/77 07/14/19 09:58 O2 Sat by Pulse Oximetry (%) labs pending Assessment: 07/14/19 11:36 Aox3 no acute distress Full ROM ambulating in the unit withdrawal sx Plan: increase fluids labs pending continue detox continue to monitor
[2019-07-14 11:46] LABS: BILIRUBIN,TOTAL 0.2 mg/dL (0.2-1); BLOOD UREA NITROGEN 12.2 mg/dL (7-18); CALCIUM 9.2 mg/dL (8.5-10.1); CREATININE 0.9 mg/dL (0.55-1.3); POTASSIUM 4.7 mmol/L (3.5-5.1); TOT PROT 7.4 g/dl (6.4-8.2)
--- NOTE | 2019-07-14 12:01 | EKG ---
Test Reason : Blood Pressure : / mmHG Vent. Rate : 062 BPM Atrial Rate : 062 BPM P-R Int : 184 ms QRS Dur : 076 ms QT Int : 376 ms P-R-T Axes : 001 092 043 degrees QTc Int : 381 ms NORMAL SINUS RHYTHM WITH SINUS ARRHYTHMIA RIGHTWARD AXIS BORDERLINE ECG WHEN COMPARED WITH ECG OF 26-JAN-2018 02:09, NO SIGNIFICANT CHANGE WAS FOUND Confirmed by FROILAN CHO MD ([id number]) on 07/14/2019 12:01:28 PM Referred By: Confirmed By:FROILAN CHO MD
[2019-07-14 17:19] LABS: URINE APPEARANCE CLEAR; URINE BILIRUBIN NEGATIVE (NEGATIVE); URINE COLOR YELLOW; URINE GLUCOSE (UA) NEGATIVE (NEGATIVE); URINE KETONE NEGATIVE (NEGATIVE); URINE LEUK ESTERASE NEGATIVE (NEGATIVE); URINE NITRITE NEGATIVE (NEGATIVE); URINE PROTEIN NEGATIVE (NEGATIVE); URINE UROBILINOGEN 0.2 mg/dL (0.2-1.0)
[2019-07-14] MEDS ORDERED: QUEtiapine FUMARATE 100 MG TABLET (FP) PO SCH (22:00)
[2019-07-14] MEDS: THIAMINE HCL 100 MG TABLET (FP) PO SCH (22:25)
[2019-07-15 09:32] VITALS: BP 113/59; PULSE 51; TEMP 97.9
[2019-07-15] MEDS ORDERED: METHADONE HCL 10 MG TABLET (FOR DETOX USE ONLY) PO ONE (10:00)
[2019-07-15] MEDS: NICOTINE 21 MG/24 HOURS TOPICAL PATCH TD SCH (10:22)
[2019-07-15] MEDS: PRENATAL VITAMINS W/ FOLIC ACID TABLET (FP) PO SCH (10:22)
--- NOTE | 2019-07-15 11:11 | PN ---
BHS COWS - Scale Resting Pulse: 0= [place] 80 or Below Sweatin= Chills/Flushing Restless Observation: 1= Difficult to Sit Still Pupil Size: 0= Normal to Room Light Bone or Joint Aches: 0= None Runny Nose/ Eye Tearin= None GI Upset > 30mins: 0= None Tremor Observation of Outstretched Hands: 0= None Yawning Observation: 0= None Anxiety or Irritability: 1=Feels Anxious/Irritable Goose Flesh Skin: 0=Smooth Skin COWS Score: 3 BHS Progress Note (SOAP) Subjective: restless feeling better wants to go home Objective: 07/15/19 11:10 Vital Signs Temperature 97.9 F 07/15/19 09:32 Pulse Rate 51 L 07/15/19 09:32 Respiratory Rate 16 07/15/19 09:32 Blood Pressure 113/59 L 07/15/19 09:32 O2 Sat by Pulse Oximetry (%) Laboratory Tests 07/14/19 07/14/19 07/14/19 08:20 08:20 14:00 WBC 6.3 RBC 5.13 Hgb 14.7 Hct 44.0 MCV 85.8 MCH 28.6 MCHC 33.3 RDW 14.2 Plt Count 225 D MPV 9.3 D Sodium 139 Potassium 4.7 Chloride 106 Carbon Dioxide 30 Anion Gap 3 L BUN 12.2 Creatinine 0.9 Est GFR (CKD-EPI)AfAm 136.14 Est GFR (CKD-EPI)NonAf 117.46 Random Glucose 81 Calcium 9.2 Total Bilirubin 0.2 AST 36 ALT 68 H Alkaline Phosphatase 83 Total Protein 7.4 Albumin 4.0 Urine Color Yellow Urine Appearance Clear Urine pH 7.0 Ur Specific [place] 1.019 Urine Protein Negative Urine Glucose (UA) Negative Urine Ketones Negative Urine Blood Negative Urine Nitrite Negative Urine Bilirubin Negative Urine Urobilinogen 0.2 Ur Leukocyte Esterase Negative aaox3 ambulating no acute distress Assessment: 07/15/19 11:10 mild withdrawals Plan: d/c today
--- NOTE | 2019-07-15 11:12 | DS ---
[facility] Detox Discharge Summary Admission Date: 07/13/19 Discharge Date: 07/15/19 - History Present History: Cannabis Dependence, Cocaine Dependence, Opioid Dependence - Physical Exam Results Vital Signs: Vital Signs Temperature 97.9 F 07/15/19 09:32 Pulse Rate 51 L 07/15/19 09:32 Respiratory Rate 16 07/15/19 09:32 Blood Pressure 113/59 L 07/15/19 09:32 O2 Sat by Pulse Oximetry (%) - Treatment Hospital Course: Detox Protocol Followed, Detoxed Safely, Responded well, Discharged Condition Good, Rehab Referral Accepted - Medication Discharge Medications: Ambulatory Orders Quetiapine Fumarate [Seroquel -] 300 mg PO HS 06/25/18 - Diagnosis (1) Cannabis dependence Current Visit: Yes Status: Acute (2) Cocaine dependence, uncomplicated Current Visit: Yes Status: Acute (3) Opioid dependence with withdrawal Current Visit: Yes Status: Acute (4) Substance-induced anxiety disorder Current Visit: Yes Status: Acute (5) Substance-induced sleep disorder Current Visit: Yes Status: Acute (6) Nicotine dependence Current Visit: Yes Status: Chronic Qualifiers: Nicotine product type: cigarettes Substance use status: uncomplicated Qualified Code(s): F17.210 - Nicotine dependence, cigarettes, uncomplicated (7) Non-compliance Current Visit: Yes Status: Chronic (8) Substance induced mood disorder Current Visit: Yes Status: Chronic (9) Hepatitis C Current Visit: Yes Status: Resolved (10) Anxiety Current Visit: No Status: Acute (11) Insomnia Current Visit: No Status: Acute (12) Opioid dependence with uncomplicated intoxication Current Visit: No Status: Acute (13) Uncomplicated sedative, hypnotic or anxiolytic withdrawal Current Visit: No Status: Acute (14) Weight loss Current Visit: No Status: Acute (15) Bipolar disorder Current Visit: No Status: Chronic Qualifiers: Active/Remission status: remission status unspecified Qualified Code(s): F31.9 - Bipolar disorder, unspecified (16) Cocaine use disorder Current Visit: No Status: Chronic (17) Hx of hepatitis C Current Visit: No Status: Chronic (18) Opioid use disorder Current Visit: No Status: Chronic (19) Depression Current Visit: No Status: Suspected Qualifiers: Depression Type: unspecified Qualified Code(s): F32.9 - Major depressive disorder, single episode, unspecified (20) ADHD (attention deficit hyperactivity disorder) Current Visit: No Status: Ruled-out Qualifiers: Attention deficit-hyperactivity disorder type: unspecified Qualified Code(s ): F90.9 - Attention-deficit hyperactivity disorder, unspecified type - AMA Did Patient Leave Against Medical Advice: No
[2019-07-16] MEDS ORDERED: METHADONE (DETOX) 10 MG, METHADONE (DETOX) 5 MG PO ONE (10:00)
[2019-07-17] MEDS ORDERED: METHADONE HCL 10 MG TABLET (FOR DETOX USE ONLY) PO ONE (10:00)
[2019-07-18] MEDS ORDERED: METHADONE HCL 5 MG TABLET (FOR DETOX USE ONLY) PO ONE (06:00)
== END 2019-07-15 12:16 | disposition home or self-care (01) | DRG 773 ==
LOC: YASAS 15:17 → Y6N 22:27
PROVIDERS: ADMIT Allergy & Immunology; ATTEND Allergy & Immunology
PROC: HZ2ZZZZ Detoxification Services for Substance Abuse Treatment (ICD-10-PCS; principal; 2019-07-13)
DX: F11.23 Opioid dependence with withdrawal (principal); F11.220 Opioid dependence with intoxication, uncomplicated; F14.20 Cocaine dependence, uncomplicated; F12.20 Cannabis dependence, uncomplicated; F17.210 Nicotine dependence, cigarettes, uncomplicated; F19.24 Other psychoactive substance dependence with psychoactive substance-induced mood disorder; F19.280 Other psychoactive substance dependence with psychoactive substance-induced anxiety disorder; F19.282 Other psychoactive substance dependence with psychoactive substance-induced sleep disorder; F41.9 Anxiety disorder, unspecified; F31.9 Bipolar disorder, unspecified; F90.9 Attention-deficit hyperactivity disorder, unspecified type; G47.00 Insomnia, unspecified; R63.4 Abnormal weight loss; Z91.013 Allergy to seafood; Z86.19 Personal history of other infectious and parasitic diseases; Z91.19 Patient's noncompliance with other medical treatment and regimen; Z56.0 Unemployment, unspecified; Z59.0 Homelessness
CPT/HCPCS: 36415; 80053; 81003; 85027; 93005; 93010; J0735